=== PATIENT | male | born 1980 | race African-American/Black ===

== ENCOUNTER 2017-09-08 10:23 | Emergency (ER) | payer MEDICARE, MEDICAID ==
[2017-09-08] MEDS ORDERED: MORPHINE SULFATE 10 MG/ML INJ IV ONE (13:16)
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
[2017-09-08 13:38] LABS: ABSOLUTE EOSINOPHILS # (AUTO) 0.9 10^3/uL (0.0-0.6); ABSOLUTE MONOCYTES (AUTO) 0.4 10^3/uL (0.1-1.4); ABSOLUTE NEUT (AUTO) 3.8 10^3/uL (1.7-8.2); BASOPHILS % (AUTO) 0.6 % (0-2); HEMATOCRIT 37.9 % (37.9-51.0); HEMOGLOBIN 12.4 g/dL (13.5-17.0); LYMPHOCYTES % (AUTO) 16.1 % (13-45); MEAN CORPUSCULAR HEMOGLOBIN 26.9 pg (27.0-33.4); MEAN CORPUSCULAR HGB CONC 32.6 g/dL (32.0-36.0); MEAN CORPUSCULAR VOLUME 83 fl (80-97); MONOCYTES % (AUTO) 6.9 % (3-13); PLATELET COUNT 358 10^3/uL (150-450); RED BLOOD COUNT 4.59 10^6/uL (4.35-5.55); RED CELL DISTRIBUTION WIDTH 14.3 % (11.5-14.0); SEGMENTED NEUTROPHILS % (AUTO) 61.4 % (42-78); TOTAL CELLS COUNTED % (AUTO) 100 %; WHITE BLOOD COUNT 6.1 10^3/uL (4.0-10.5)
[2017-09-08] MEDS ORDERED: MORPHINE SULFATE 10 MG/ML INJ IM ONE (13:50)
--- NOTE | 2017-09-08 14:00 | RADIOLOGY REPORT (SQ) ---
EXAM DESCRIPTION: CHEST 2 VIEWS COMPLETED DATE/TIME: 09/08/2017 1:43 pm REASON FOR STUDY: cp/recent chest tube COMPARISON: Two-view chest 11/27/2012, 11/14/2012 EXAM PARAMETERS: NUMBER OF VIEWS: two views TECHNIQUE: Digital Frontal and Lateral radiographic views of the chest acquired. RADIATION DOSE: NA LIMITATIONS: none FINDINGS: LUNGS AND PLEURA: There is right lower lobe partial collapse with volume loss and consolid ation, elevation of the right hemidiaphragm. Right middle lobe, right upper lobe clear. Left lung clear. No pneumothorax MEDIASTINUM AND HILAR STRUCTURES: No masses or contour abnormalities. HEART AND VASCULAR STRUCTURES: Heart normal size. No evidence for failure. BONES: No acute findings. HARDWARE: None in the chest. OTHER: No other significant finding. IMPRESSION: Subtotal collapse of the right lower lobe. Pneumonia could not be excluded. Endobronch ial lesion to the left lower lobe could not be excluded. TECHNICAL DOCUMENTATION: JOB ID: [id number] [employer]- All Rights Reserved Reading location - IP/workstation name: [email or web address]
[2017-09-08] MEDS ORDERED: HYDROMORPHONE HCL INJ/PF 2 MG/ML AMPULE IM ONE (14:07)
[2017-09-08] MEDS ORDERED: IPRATROPIUM/ALBUTEROL 0.5-2.5 MG/3 ML AMPUL NEB ONE ×2 (15:16)
[2017-09-08] MEDS ORDERED: FENTANYL CITRATE INJ/PF 100 MCG/2 ML AMPUL IV ONE (15:16)
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
[2017-09-08 15:34] LABS: ANION GAP 10 (5-19); BLOOD UREA NITROGEN 20 mg/dL (7-20); CALCIUM 9.6 mg/dL (8.4-10.2); CARBON DIOXIDE 33 mmol/L (22-30); CHLORIDE 99 mmol/L (98-107); GLUCOSE 127 mg/dL (75-110); POTASSIUM 4.3 mmol/L (3.6-5.0); SODIUM 141.7 mmol/L (137-145)
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
[2017-09-08 17:27] VITALS: BP 135/82
== END 2017-09-08 17:27 | disposition home or self-care (01) ==
LOC: ER 10:23
DX: J98.11 Atelectasis (principal); R06.00 Dyspnea, unspecified; R06.02 Shortness of breath; Z86.14 Personal history of Methicillin resistant Staphylococcus aureus infection; Z98.890 Other specified postprocedural states
CPT/HCPCS: 94640; 99284; 96372; 96374; 36415; 85025; 80048; 71046; 71260; J3010; J1170; A9270; J7620

== ENCOUNTER 2017-10-30 22:53 | Emergency (ER) | payer MEDICARE, MEDICAID ==
[2017-10-30] MEDS ORDERED: METHYLPREDNISOLONE INJ 125 MG/2 ML SDV ONE (23:23)
[2017-10-30] MEDS ORDERED: MAGNESIUM SULFATE/D5W 2 GM/200 ML RTUPB IV ONE (23:23)
[2017-10-30] MEDS ORDERED: IPRATROPIUM/ALBUTEROL 0.5-2.5 MG/3 ML AMPUL NEB ONE ×2 (23:24→23:25)
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
[2017-10-30] MEDS ORDERED: THIAMINE HCL 100 MG, FOLIC ACID 1 MG in NORMAL SALINE 250 ML IV ONE (23:34)
[2017-10-30] MEDS ORDERED: LORAZEPAM INJ 2 MG/1 ML VIAL IV ONE (23:34)
--- NOTE | 2017-10-30 23:35 | RADIOLOGY REPORT (SQ) ---
EXAM DESCRIPTION: XR CHEST 1 VIEW CLINICAL HISTORY: 37 years Male, sob COMPARISON: CT,4.16.18. NUMBER OF VIEWS/TECHNIQUE: 1/AP FINDINGS: Increased lung volume, clear parenchyma, normal cardiac silhouette, and chronic fracture of the right mid clavicle and right upper posterolateral ribs. IMPRESSION: No acute cardiopulmonary findings.
[2017-10-30] MEDS ORDERED: ALBUTEROL SULFATE 0.083% NEB 2.5 MG/3 ML AMPUL NEB ONE (23:51)
[2017-10-31] MEDS ORDERED: HYDROMORPHONE HCL INJ/PF 2 MG/ML AMPULE IV ONE (00:17)
[2017-10-31] MEDS ORDERED: ALBUTEROL SULFATE 0.083% NEB 2.5 MG/3 ML AMPUL NEB ONE (00:38)
[2017-10-31] MEDS ORDERED: MAGNESIUM SULFATE/D5W 1 GM/100 ML RTUPB IV ONE (00:38)
[2017-10-31] MEDS ORDERED: OXYMETAZOLINE HCL 0.05% NASAL SPRAY 15 ML BOTTLE NASL ONE (01:28)
[2017-10-31] MEDS ORDERED: GUAIFENESIN/CODEINE PHOS 100-10 MG/ 5 ML UDC PO ONE (01:29)
[2017-10-31] MEDS ORDERED: DOXYCYCLINE HYCLATE 100 MG TABLET PO ONE (02:22)
[2017-10-31 03:25] VITALS: BP 156/82
[2017-10-31] MEDS ORDERED: IPRATROPIUM/ALBUTEROL 0.5-2.5 MG/3 ML AMPUL NEB ONE (03:34)
== END 2017-10-31 04:13 | disposition home or self-care (01) ==
LOC: ER 22:53
DX: J45.41 Moderate persistent asthma with (acute) exacerbation (principal); R05 Cough; R06.02 Shortness of breath
CPT/HCPCS: 94640 ×2; 99285; 96375; 96365; 71045; A9270 ×6; J2930; J1170; J3490; J3475 ×2; J7620

== ENCOUNTER 2018-01-14 01:02 | Emergency (ER) | payer MEDICARE, MEDICAID ==
[2018-01-14] MEDS ORDERED: IPRATROPIUM/ALBUTEROL 0.5-2.5 MG/3 ML AMPUL NEB ONE (01:07)
[2018-01-14] MEDS ORDERED: METHYLPREDNISOLONE INJ 125 MG/2 ML SDV IV ONE (01:07)
--- NOTE | 2018-01-14 01:08 | ER Document Report ---
ED Medical Screen (RME) - General Chief Complaint: Asthma Exacerbation Stated Complaint: ASTHMA Time Seen by Provider: 01/14/18 01:06 Mode of Arrival: Wheelchair Information source: Patient, Relative Notes: Patient is a 29-year-old male who presents with chief complaint of acute asthma exacerbation. Patient reports this is been going on several days, rescue inhalers have not helped. Patient speaking in short choppy sentences. Patient upgraded to JOHANN 2. Exam: Inspiratory and expiratory wheezing throughout, diminished air movement. I have greeted and performed a rapid initial assessment of this patient. A comprehensive ED assessment and evaluation of the patient, analysis of test results and completion of the medical decision making process will be conducted by additional ED providers. Dictation of this chart was performed using voice recognition software; therefore, there may be some unintended grammatical errors. TRAVEL OUTSIDE OF THE [place] IN LAST 30 DAYS: No - Related Data Allergies/Adverse Reactions: tramadol Allergy (Verified 09/08/17 13:08) Past Medical History Pulmonary Medical History: Reports: Hx Asthma Denies: Hx Bronchitis, Hx COPD, Hx Pneumonia, Hx Intubation, Hx Respiratory Failure, Hx Sleep Apnea, Hx Tuberculosis Neurological Medical History: Denies: Hx Cerebrovascular Accident, Hx Migraine, Hx Seizures Endocrine Medical History: Denies: Hx Diabetes Mellitus Type 1, Hx Diabetes Mellitus Type 2, Hx Graves' Disease, Hx Hyperthyroidism, Hx Hypothyroidism Renal/ Medical History: Denies: Hx Peritoneal Dialysis Psychiatric Medical History: Reports: Hx Bipolar Disorder Infectious Medical History: Reports: Hx MRSA Past Surgical History: Reports: Hx Abdominal Surgery - umbilical hernia repair, Hx Orthopedic Surgery - R clavical; tibia - Immunizations Hx Diphtheria, Pertussis, Tetanus Vaccination: Yes History of Influenza Vaccine for 02/2017 - 07/2017 Season: No
[2018-01-14] MEDS ORDERED: MAGNESIUM SULFATE/D5W 1 GM/100 ML RTUPB IV SCH (01:15)
[2018-01-14] MEDS: MAGNESIUM SULFATE/D5W 1 GM/100 ML RTUPB IV SCH ×2 (01:16→02:15)
--- NOTE | 2018-01-14 01:17 | ER Document Report ---
ED General - General Chief Complaint: Asthma Exacerbation Stated Complaint: ASTHMA Time Seen by Provider: 01/14/18 01:06 Mode of Arrival: Wheelchair Notes: Patient is a 37-year-old male who presents with complaint of asthma attack. He has a history of severe asthma. Has been using inhalers at home today but they have not been helping. He has been intubated a few times in the past. He is a former smoker but quit several years ago. No fevers. He says he does have some pain in the right side of his lung with breathing. No history of PE or DVT. No other complaints at this time. No other medical problems. TRAVEL OUTSIDE OF THE [place] IN LAST 30 DAYS: No - Related Data Allergies/Adverse Reactions: tramadol Allergy (Verified 09/08/17 13:08) Past Medical History - General Information source: Patient, Relative - Social History Smoking Status: Former Smoker Frequency of alcohol use: None Drug Abuse: None Family History: Hypertension, None, Reviewed & Not Pertinent Pulmonary Medical History: Reports: Hx Asthma Denies: Hx Bronchitis, Hx COPD, Hx Pneumonia, Hx Intubation, Hx Respiratory Failure, Hx Sleep Apnea, Hx Tuberculosis Neurological Medical History: Denies: Hx Cerebrovascular Accident, Hx Migraine, Hx Seizures Endocrine Medical History: Denies: Hx Diabetes Mellitus Type 1, Hx Diabetes Mellitus Type 2, Hx Graves' Disease, Hx Hyperthyroidism, Hx Hypothyroidism Renal/ Medical History: Denies: Hx Peritoneal Dialysis Psychiatric Medical History: Reports: Hx Bipolar Disorder Infectious Medical History: Reports: Hx MRSA Past Surgical History: Reports: Hx Abdominal Surgery - umbilical hernia repair, Hx Orthopedic Surgery - R clavical; tibia - Immunizations Hx Diphtheria, Pertussis, Tetanus Vaccination: Yes Hx Pneumococcal Vaccination: 02/23/11 Review of Systems - Review of Systems Notes: My Normal Review Basic REVIEW OF SYSTEMS: CONSTITUTIONAL : Denies fever, chills, or sweats. Denies recent illness. EENT: Denies eye, ear, throat, or mouth pain or symptoms. Denies nasal or sinus congestion. CARDIOVASCULAR: Denies chest pain. RESPIRATORY: Difficulty to breathing. GASTROINTESTINAL: Denies abdominal pain. Denies nausea, vomiting, or diarrhea. GENITOURINARY: Denies difficulty urinating, painful urination, burning, frequency, or blood in urine. SKIN: Denies rash or skin lesions. NEUROLOGICAL: Denies altered mental status or loss of consciousness. Denies headache. Denies weakness or paralysis or loss of use of either side. Denies problems with gait or speech. Denies sensory or motor loss. ALL OTHER SYSTEMS REVIEWED AND NEGATIVE. Physical Exam - Vital signs Vitals: Temp Pulse Resp BP Pulse Ox 98.1 F 88 12 139/88 H 93 01/14/18 01:06 01/14/18 01:06 01/14/18 01:06 01/14/18 01:06 01/14/18 01:06 - Notes Notes: General Appearance: Well nourished, alert, cooperative, moderate acute distress , no obvious discomfort. Vitals: reviewed, See vital signs table. Head: no swelling or tenderness to the head Eyes: PERRL, EOMI, Conjuctiva clear Mouth: No decreasd moisture Throat: No tonsillar inflammation, No airway obstruction, No lymphadenopathy Neck: Supple, no neck tenderness, No thyromegaly Lungs:Diffuse wheezing with poor to fair air movement. Some accessory muscle use. Speaks in 2 word sentences. Heart: Normal rate, Regular rythm, No murmur, no rub Abdomen: Normal BS, soft, No rigidity, No abdominal tenderness, No guarding, no rebound, Extremities: strength 5/5 in all extremities, good pulses in all extremities, no swelling or tenderness in the extremities, no edema. Skin: warm, dry, appropriate color, no rash Neuro: speech clear, oriented x 3, normal affect, responds appropriately to questions. Course - Re-evaluation Re-evalutation: 01/14/18 02:00 On reassessment patient's work of breathing is much improved however his lung padgett are still very tight wheezing. I will give him more breathing treatments and then reassess. 01/14/18 02:32 Patient is now moving air much better. He still has a prolonged expiratory wheeze; however, his air movement is much improved. We will continue to monitor the patient to make sure he fully improves. 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 I offered to write him a work note. I informed him that for him to stay Franny bit longer make sure his lung padgett clear. I informed him that his chance believes now that he could go home and his breathing to get worse and he could quickly crash being that he has just severe history of asthma. Patient shows understanding of this but says he feels very well and request to be discharged home. He is currently speaking full sentences. His lung padgett to continue to clear. He has good air movement. He still has some wheezing. His oxygen saturation is 90 -93%. Patient said this is actually his baseline. I informed him that that does not really make sense that he would have a baseline oxygen saturation of 90 -93%; however, patient is adamant that this is his baseline oxygenation. Patient shows understanding that if he does go home he could potentially have worsening difficulty breathing and could quickly crash and require intubation or ventilator. Patient is aware of this but still request to be discharged home. Patient shows capacity to make his own decisions. Patient will be discharged as he requests. Dictation of this chart was performed using voice recognition software; therefore, there may be some unintended grammatical errors. - Vital Signs Vital signs: Temp Pulse Resp BP Pulse Ox 98.1 F 88 12 152/84 H 94 01/14/18 01:06 01/14/18 01:06 01/14/18 03:01 01/14/18 03:01 01/14/18 03:01 - Laboratory Result Diagrams: 01/14/18 01:18 01/14/18 01:18 Laboratory results interpreted by me: 01/14/18 01/14/18 01:18 01:18 Hgb 12.2 L Hct 37.5 L MCH 26.4 L RDW 15.3 H Eosinophils % 19.7 H Absolute Eosinophils 1.3 H Sodium 145.8 H Chloride 108 H Glucose 111 H Discharge - Discharge Clinical Impression: Asthma exacerbation Qualifiers: Asthma severity: unspecified severity Asthma persistence: intermittent Qualified Code(s): J45.21 - Mild intermittent asthma with (acute) exacerbation Condition: Stable Disposition: HOME, SELF-CARE Additional Instructions: ASTHMA: You have been diagnosed as having asthma. This is a condition where there is episodic tightness in the bronchial tubes. Allergies, infections, and polluted or cold air may be contributing factors. Emergency treatment of a severe asthma attack may include adrenaline shots , or bronchodilator aerosol. You may feel lightheaded, have a decreased exercise tolerance and a rapid pulse for an hour or two. Rest and get plenty of fluids. Home treatment of asthma requires bronchodilator drugs. These can be administered by injection, inhalation, or by mouth. Antibiotics and corticosteroids may be required for some patients. You should avoid chemical fumes, dusts, pollens, and exercising in very cold or dry air. If you smoke, stop!! If you develop a fever, increased wheezing, chest pain, or severe shortness of breath, you should contact the doctor immediately. STEROID MEDICATION: You have been given an injection of or oral medicine of the cortisone/ steroid class. This medication is used to control inflammation or allergy. Joseph t is usually only given for a short period of time, until the acute process subsides. There are usually no side effects from short-term use of cortisone-like medications. Some persons feel an increased sense of well-being and are not sleepy at bedtime. Long-term use of cortisone medications is best avoided, unless required for a severe condition. If your condition does not remit, or relapses after the course of corticosteroid medication, you should consult your physician. INHALED BRONCHODILATORS: You have received treatment(s) of and/or prescription for an inhaled bronchodilator -- a medication which stimulates the airways in the lung to dilate. This improves the flow of air in asthma, bronchitis, and emphysema. These medicines have some similarity to adrenaline, and can cause similar side effects: shakiness, racing heart, and a sense of nervousness. These side effects decrease with time. Contact your doctor if these side effects are severe. Do not over-use the medicine. Too-frequent use of the inhaler may make it ineffective. Call your doctor if the inhaler is not controlling your symptoms at the prescribed doses. FOLLOW-UP CARE: If you have been referred to a physician for follow-up care, call the physician s office for an appointment as you were instructed or within the next two days. If you experience worsening or a significant change in your symptoms, notify the physician immediately or return to the Emergency Department at any time for re-evaluation. Please return to the ER immediately if you develop fevers, difficulty breathing , wheezing not responding to your inhaler, or if you feel unwell. Do not take the Motrin if you are having an asthma exacerbation. As discussed with you, we recommend staying a little bit longer to make sure you lungs do clear out well before leaving. We understand that you have to work in the morning and that you do not want to stay. We respect your decision to want to leave but strongly encourage you to return to the ER anytime if you have any worsening breathing whatsoever as we want what is best for you and we want you to do well. Prescriptions: Ibuprofen [Motrin 400 mg Tablet] 400 mg PO Q6 PRN #20 tablet PRN Reason: Pain Scale Of 2 Ipratropium/Albuterol Sulfate [Duoneb 3 ml Ampul] 3 ml NEB [id number] PRN #30 vial.neb PRN Reason: Ipratropium/Albuterol Sulfate [Combivent Inhaler] 1 puff IH BID #1 aer.w.[email or web address] Prednisone [Deltasone 20 mg Tablet] 3 tab PO DAILY 4 Days tablet
[2018-01-14 01:31] LABS: ABSOLUTE BASOPHILS # (AUTO) 0.1 10^3/uL (0.0-0.2); ABSOLUTE EOSINOPHILS # (AUTO) 1.3 10^3/uL (0.0-0.6); ABSOLUTE LYMPHOCYTES (AUTO) 1.5 10^3/uL (0.5-4.7); ABSOLUTE MONOCYTES (AUTO) 0.5 10^3/uL (0.1-1.4); ABSOLUTE NEUT (AUTO) 3.2 10^3/uL (1.7-8.2); BASOPHILS % (AUTO) 1.1 % (0-2); EOSINOPHILS % (AUTO) 19.7 % (0-6); HEMATOCRIT 37.5 % (37.9-51.0); HEMOGLOBIN 12.2 g/dL (13.5-17.0); LYMPHOCYTES % (AUTO) 23.3 % (13-45); MEAN CORPUSCULAR HEMOGLOBIN 26.4 pg (27.0-33.4); MEAN CORPUSCULAR HGB CONC 32.6 g/dL (32.0-36.0); MEAN CORPUSCULAR VOLUME 81 fl (80-97); MONOCYTES % (AUTO) 7.2 % (3-13); PLATELET COUNT 286 10^3/uL (150-450); RED BLOOD COUNT 4.62 10^6/uL (4.35-5.55); RED CELL DISTRIBUTION WIDTH 15.3 % (11.5-14.0); SEGMENTED NEUTROPHILS % (AUTO) 48.7 % (42-78); TOTAL CELLS COUNTED % (AUTO) 100 %; WHITE BLOOD COUNT 6.6 10^3/uL (4.0-10.5)
[2018-01-14 01:40] LABS: ANION GAP 10 (5-19); BLOOD UREA NITROGEN 16 mg/dL (7-20); CARBON DIOXIDE 28 mmol/L (22-30); CHLORIDE 108 mmol/L (98-107); GLUCOSE 111 mg/dL (75-110); POTASSIUM 3.8 mmol/L (3.6-5.0); SODIUM 145.8 mmol/L (137-145)
--- NOTE | 2018-01-14 01:48 | RADIOLOGY REPORT (SQ) ---
EXAM DESCRIPTION: XR CHEST 1 VIEW COMPLETED DATE/TME: 01/14/2018 01:14 CLINICAL HISTORY: dyspnea COMPARISON: 10/30/2017 FINDINGS: Single frontal view of the chest. The cardiomediastinal silhouette has normal size and contour. No consolidation, pneumothorax, or pleural effusion. No displaced rib fractures identified. Leads overlie the chest. Upper abdominal soft tissues are unremarkable. IMPRESSION: 1. No acute pulmonary process identified.
[2018-01-14] MEDS ORDERED: ALBUTEROL SULFATE 0.083% NEB 2.5 MG/3 ML AMPUL NEB ONE (01:59)
[2018-01-14] MEDS ORDERED: ALBUTEROL SULFATE HFA (90 MCG/PUFF) 8 GM MDI (1 MDI/ER DISP) IH ONE (03:05)
[2018-01-14 03:30] VITALS: BP 152/84
== END 2018-01-14 03:30 | disposition home or self-care (01) ==
LOC: ER 01:02
DX: J45.21 Mild intermittent asthma with (acute) exacerbation (principal); Z87.891 Personal history of nicotine dependence
CPT/HCPCS: 94640 ×2; 99285; 96375; 96365; 96366; 36415; 85025; 80048; 71045; J2930; J3475; A9270 ×2; J7620

== ENCOUNTER 2018-03-09 20:27 | Inpatient (IN) | payer MEDICARE, MEDICAID ==
[~2018-03-09 20:27] MED LIST: SUCCINYLCHOLINE CHLORIDE INJ 200 MG/10 ML VIAL ONE
[2018-03-09] MEDS ORDERED: METHYLPREDNISOLONE INJ 125 MG/2 ML SDV IV ONE (20:31)
[2018-03-09] MEDS ORDERED: IPRATROPIUM/ALBUTEROL 0.5-2.5 MG/3 ML AMPUL NEB ONE (20:31)
[2018-03-09] MEDS ORDERED: IPRATROPIUM BROMIDE 0.02% NEB 0.5 MG/2.5 ML AMPUL NEB ONE (20:32)
[2018-03-09] MEDS ORDERED: ALBUTEROL SULFATE 0.083% NEB 2.5 MG/3 ML AMPUL NEB ONE (20:32)
[2018-03-09] MEDS ORDERED: METHYLPREDNISOLONE INJ 125 MG/2 ML SDV ONE ×2 (20:33→23:58)
[2018-03-09] MEDS ORDERED: MAGNESIUM SULFATE/D5W 2 GM/200 ML RTUPB IV ONE (20:33)
[2018-03-09] MEDS ORDERED: RACEPINEPHRINE HCL 2.25% NEB 0.5 ML AMPUL NEB ONE ×2 (20:39→20:40)
[2018-03-09] MEDS ORDERED: NORMAL SALINE 1000 ML 1,000 ML IV ONE (20:42)
--- NOTE | 2018-03-09 20:43 | ER Document Report ---
ED Respiratory Problem - General Mode of Arrival: Ambulatory Information source: Patient TRAVEL OUTSIDE OF THE [place] IN LAST 30 DAYS: No <DERIC OROURKE - Last Filed: 03/09/18 20:49> <VICENTE DOCKERY - Last Filed: 03/09/18 22:24> <SOFÍAARRON Martinez - Last Filed: 03/09/18 22:54> - General Chief Complaint: Asthma Exacerbation Stated Complaint: SHORTNESS OF BREATH Time Seen by Provider: 03/09/18 20:36 Notes: Patient is a 38-year-old male with asthma presents to the emergency department complaining of difficulty breathing onset 3 days ago worsening tonight. Patient states that he has taken approximately 60 mg of Prednisone today in attempt to help his shortness of breath but it has not worked. He also complains of a small fever and chest tightness. Patient takes DuoNebs, Advair, Albuterol, Combivent. (DERIC OROURKE) - Related Data Allergies/Adverse Reactions: tramadol Allergy (Verified 09/08/17 13:08) Past Medical History - General Information source: Patient - Social History Smoking Status: Never Smoker Cigarette use (# per day): No Chew tobacco use (# tins/day): No Family History: Hypertension, None, Reviewed & Not Pertinent Pulmonary Medical History: Reports: Hx Asthma Musculoskeletal Medical History: Reports Other - Rib fracture of 3-7. Clavicle fracture. Psychiatric Medical History: Reports: Hx Bipolar Disorder Infectious Medical History: Reports: Hx MRSA Past Surgical History: Reports: Hx Abdominal Surgery - umbilical hernia repair, Hx Orthopedic Surgery - R clavical; tibia - Immunizations Hx Diphtheria, Pertussis, Tetanus Vaccination: Yes Hx Pneumococcal Vaccination: 02/23/11 <DERIC OROURKE - Last Filed: 03/09/18 20:49> Review of Systems - Review of Systems Constitutional: No symptoms reported EENT: No symptoms reported Cardiovascular: See HPI, Chest pain - tightness Respiratory: See HPI, Short of breath Gastrointestinal: No symptoms reported Genitourinary: No symptoms reported Male Genitourinary: No symptoms reported Musculoskeletal: No symptoms reported Skin: No symptoms reported Hematologic/Lymphatic: No symptoms reported Neurological/Psychological: No symptoms reported -: Yes All other systems reviewed and negative <DERIC OROURKE - Last Filed: 03/09/18 20:49> Physical Exam - General General appearance: Alert, Other - Appears short of breath In distress: Moderate - HEENT Head: Normocephalic, Atraumatic Eyes: Normal Conjunctiva: Normal Extraocular movements intact: Yes Pupils: PERRL Mucous membranes: Normal Neck: Normal - Respiratory Respiratory status: Respiratory distress, Tachypnea Breath sounds: Wheezing - Diffuse inspiratory and expiratory wheezes - Cardiovascular Rhythm: Regular Heart sounds: Normal auscultation Murmur: No Friction rub: No Gallop: None auscultated - Abdominal Inspection: Normal - Back Back: Normal - Extremities General upper extremity: Normal ROM General lower extremity: Normal ROM - Neurological Neuro grossly intact: Yes Cognition: Normal Orientation: AAOx4 [place] Coma Scale Eye Opening: Spontaneous [place] Coma Scale Verbal: Oriented [place] Coma Scale Motor: Obeys Commands [place] Coma Scale Total: 15 Speech: Normal - Psychological Associated symptoms: Anxious - Skin Skin Temperature: Warm Skin Moisture: Dry Skin Color: Normal <DERIC OROURKE - Last Filed: 03/09/18 20:49> - Vital signs Vitals: Resp Pulse Ox 22 H 96 03/09/18 20:50 03/09/18 20:50 Course - Laboratory Result Diagrams: 03/09/18 20:42 03/09/18 20:42 <DERIC OROURKE - Last Filed: 03/09/18 20:49> - Laboratory Result Diagrams: 03/09/18 20:42 03/09/18 20:42 - Diagnostic Test Radiology reviewed: Image reviewed, Reports reviewed - Initial chest x-ray did not show any acute abnormality. The post intubation chest x-ray showed good tube position with good aeration of both lungs. - EKG Interpretation by Dc EKG shows normal: Sinus rhythm, [place], QRS Complexes, ST-T Waves. abnormal: Intervals - Borderline prolonged QT interval Rate: Tachycardia - 106 P Waves: LAE - Consults Dr. Minaya Time consulted: 22:00 Consulted provider: will come to ER <VICENTE DOCKERY - Last Filed: 03/09/18 22:24> - Laboratory Result Diagrams: 03/09/18 20:42 03/09/18 20:42 <ARRON ANDRADE - Last Filed: 03/09/18 22:54> - Re-evaluation Re-evalutation: 03/09/18 22:05 The patient was initially quite tachypneic with very tight inspiratory wheezes and not very good air movement. He was given multiple breathing treatments of DuoNeb, 1 racemic epinephrine, albuterol, and did receive Solu-Medrol IV and 2 g of magnesium IV. He continued to deteriorate, became quite diaphoretic and air hungry. At that point decision to intubate was made. He was given 120 mg of ketamine in preparation for intubation due to his combativeness. Initial management was delayed because he pulled his IV out and it had to be reinserted. Dr. Andrade came in the room to assist in management of the patient. He did offer to intubate patient. He did intubate the patient on first try without complications. See his note for details. 03/09/18 22:18 The patient was put on propofol drip. He was given fentanyl 25 mg as needed agitation. Despite this he tried to come up off the table bucking the ventilator enough to be concerned about extubation. He was given vecuronium 10 mg IV to help protect him and the endotracheal tube placement. (VICENTE DOCKERY) - Vital Signs Vital signs: Temp Pulse Resp BP Pulse Ox 20 111/63 97 03/09/18 22:46 03/09/18 22:46 03/09/18 22:46 - Laboratory Laboratory results interpreted by me: 03/09/18 20:42 Hgb 12.1 L Hct 36.5 L MCH 26.8 L RDW 15.6 H Eosinophils % 11.1 H Absolute Eosinophils 0.9 H Procedures - Intubation Orotracheal Time of Intubation: 21:30 Airway evaluation: Normal anatomy Mallampati Classification: Class 2 Medications: Ketamine Intubation method: Orotracheal Blade type: [place] Blade size: 4 Equipment used: Glidescope ETT size: 7.5 ETT secured at: Lips ETT secured at (cm): 22 Breath Sounds after Intubation: Equal End tidal CO2 confirmed: Yes Ventilator settings: SIMV Tidal volume: 450 FiO2: 100 Respirations: 18 PEEP: 0 Post Intubation Xray: Yes Intubation Complications: No complications <ARRON ANDRADE - Last Filed: 03/09/18 22:54> Critical Care Note - Critical Care Note Total time excluding time spent on procedures (mins): 50 <VICENTE DOCKERY - Last Filed: 03/09/18 22:24> Discharge <DERIC OROURKE - Last Filed: 03/09/18 20:49> - Discharge Admitting Provider: Hospitalist Unit Admitted: ICU <VICENTE DOCKERY - Last Filed: 03/09/18 22:24> <SOFÍAARRON Martinez - Last Filed: 03/09/18 22:54> - Discharge Clinical Impression: Acute severe exacerbation of asthma Acute respiratory failure Qualifiers: Respiratory failure complication: hypoxia Qualified Code(s): J96.01 - Acute respiratory failure with hypoxia Condition: Critical Disposition: ADMITTED INPATIENT Scribe Attestation: 03/09/18 21:08 I personally performed the services described in the documentation, reviewed and edited the documentation which was dictated to the scribe in my presence, and it accurately records my words and actions. (VICENTE DOCKERY) Scribe Documentation - Scribe Written by Harmonye:: Noa Hassan, 03/09/2018 20:48 acting as scribe for :: Susannah <DERIC OROURKE - Last Filed: 03/09/18 20:49>
[2018-03-09] MEDS: ALBUTEROL SULFATE 0.083% NEB 2.5 MG/3 ML AMPUL NEB SCH ×2 (20:44→20:54)
[2018-03-09] MEDS ORDERED: LORAZEPAM INJ 2 MG/1 ML VIAL IV ONE (20:45)
[2018-03-09 20:51] LABS: ABSOLUTE BASOPHILS # (AUTO) 0.1 10^3/uL (0.0-0.2); ABSOLUTE EOSINOPHILS # (AUTO) 0.9 10^3/uL (0.0-0.6); ABSOLUTE LYMPHOCYTES (AUTO) 1.5 10^3/uL (0.5-4.7); ABSOLUTE MONOCYTES (AUTO) 0.6 10^3/uL (0.1-1.4); ABSOLUTE NEUT (AUTO) 4.7 10^3/uL (1.7-8.2); BASOPHILS % (AUTO) 1.1 % (0-2); EOSINOPHILS % (AUTO) 11.1 % (0-6); HEMATOCRIT 36.5 % (37.9-51.0); HEMOGLOBIN 12.1 g/dL (13.5-17.0); LYMPHOCYTES % (AUTO) 19.4 % (13-45); MEAN CORPUSCULAR HEMOGLOBIN 26.8 pg (27.0-33.4); MEAN CORPUSCULAR HGB CONC 33.1 g/dL (32.0-36.0); MEAN CORPUSCULAR VOLUME 81 fl (80-97); MONOCYTES % (AUTO) 7.4 % (3-13); PLATELET COUNT 290 10^3/uL (150-450); RED BLOOD COUNT 4.51 10^6/uL (4.35-5.55); RED CELL DISTRIBUTION WIDTH 15.6 % (11.5-14.0); TOTAL CELLS COUNTED % (AUTO) 100 %; WHITE BLOOD COUNT 7.7 10^3/uL (4.0-10.5)
[2018-03-09] MEDS ORDERED: ETOMIDATE INJ/PF 20 MG/10 ML SDV IV ONE (21:25)
[2018-03-09] MEDS ORDERED: KETAMINE HCL INJ 500 MG/10 ML VIAL ONE (21:25)
--- NOTE | 2018-03-09 21:27 | RADIOLOGY REPORT (SQ) ---
EXAM DESCRIPTION: CLINICAL HISTORY: 38 years Male difficulty breathing COMPARISON: 01/14/2018 FINDINGS: The cardiomediastinal silhouette appears unremarkable. No consolidating infiltrates or pleural effusions. No pneumothorax. Lungs appear hyperinflated IMPRESSION: No acute abnormality is identified.
[2018-03-09] MEDS ORDERED: PROPOFOL 1,000 MG/100 ML INFUS..BTL IV ONE (21:36)
[2018-03-09] MEDS ORDERED: ACETAMINOPHEN 325 MG TABLET PO PRN (22:01)
[2018-03-09] MEDS ORDERED: IPRATROPIUM/ALBUTEROL 0.5-2.5 MG/3 ML AMPUL NEB PRN (22:02)
[2018-03-09] MEDS ORDERED: VECURONIUM BROMIDE INJ 10 MG VIAL IV ONE ×2 (22:17→22:18)
[2018-03-09] MEDS: FENTANYL CITRATE INJ/PF 100 MCG/2 ML AMPUL IV PRN (22:28)
--- NOTE | 2018-03-09 22:42 | RADIOLOGY REPORT (SQ) ---
EXAM DESCRIPTION: Chest x-ray single view Time and date completed: 03/09/2018 9:56 PM CLINICAL HISTORY: 38 years Male Post intubation COMPARISON: 03/09/2018 9:02 PM FINDINGS: Lungs are hyperinflated. No pneumothorax or acute infiltrate. Endotracheal tube in place above the level of the frank by 7 cm. IMPRESSION: Endotracheal tube in place above the level the frank
[2018-03-09 22:53] LABS: ALANINE AMINOTRANSFERASE 22 U/L (21-72); ALBUMIN 3.9 g/dL (3.5-5.0); ALKALINE PHOSPHATASE 70 U/L (38-126); ANION GAP 8 (5-19); ASPARTATE AMINO TRANSFERASE 25 U/L (17-59); BILIRUBIN,DIRECT 0.2 mg/dL (0.0-0.4); BILIRUBIN,TOTAL 0.3 mg/dL (0.2-1.3); BLOOD UREA NITROGEN 12 mg/dL (7-20); CALCIUM 8.8 mg/dL (8.4-10.2); CARBON DIOXIDE 28 mmol/L (22-30); CHLORIDE 106 mmol/L (98-107); GLUCOSE 155 mg/dL (75-110); POTASSIUM 4.1 mmol/L (3.6-5.0); SODIUM 141.5 mmol/L (137-145); TOTAL PROTEIN 6.6 g/dL (6.3-8.2)
[2018-03-09 23:22] LABS: APPEARANCE,URINE SLIGHTLY-CLOUDY; BILIRUBIN,URINE NEGATIVE (NEGATIVE); COLOR,URINE YELLOW; GLUCOSE, URINE NEGATIVE (NEGATIVE); KETONES,URINE NEGATIVE (NEGATIVE); LEUKOCYTE ESTERASE,URINE NEGATIVE (NEGATIVE); NITRITE,URINE NEGATIVE (NEGATIVE); PROTEIN,URINE 30 mg/dL (NEGATIVE); URINE SPECIFIC GRAVITY 1.014; UROBILINOGEN,URINE NEGATIVE mg/dL (<2.0)
[2018-03-09] MEDS: IPRATROPIUM/ALBUTEROL 0.5-2.5 MG/3 ML AMPUL NEB SCH (23:41)
[2018-03-09 23:42] LABS: URINE AMPHETAMINES SCREEN NEGATIVE; URINE BARBITURATES SCREEN NEGATIVE; URINE BENZODIAZEPINES SCREEN NEGATIVE; URINE METHADONE SCREEN NEGATIVE; URINE PHENCYCLIDINE SCREEN NEGATIVE
[2018-03-09] MEDS ORDERED: LEVOFLOXACIN 750 MG/D5W RTU 750 MG/150 ML RTUPB IV ONE (23:45)
[2018-03-09 23:48] LABS: URINE COCAINE SCREEN UNCONFIRMED POSITIVE; URINE MARIJUANA (THC) SCREEN UNCONFIRMED POSITIVE
[2018-03-09] MEDS: PROPOFOL 1,000 MG/100 ML INFUS..BTL IV PRN (23:48)
[2018-03-09] MEDS ORDERED: HEPARIN SOD (PORCINE) 5,000 UNIT/ML 1 ML SYRINGE ONE (23:58)
[2018-03-10 00:05] LABS: ARTERIAL BLOOD BASE EXCESS 0.1 mmol/L; ARTERIAL BLOOD H2CO3 2.15 mmol/L (1.05-1.35); ARTERIAL BLOOD HCO3 29.2 mmol/L (20-24); ARTERIAL BLOOD O2 SATURATION 99.7 % (94-98); ARTERIAL BLOOD PH 7.23 (7.35-7.45); ARTERIAL BLOOD PO2 349.7 mmHg (80-100)
[2018-03-10 00:07] LABS: ARTERIAL BLOOD FIO2 70%
[2018-03-10 00:08] LABS: ARTERIAL BLOOD TOTAL CO2 31.4 mmol/L (23-27)
[2018-03-10 00:09] LABS: ARTERIAL BLOOD PCO2 71.4 mmHg (35-45)
[2018-03-10] MEDS: PROPOFOL 1,000 MG/100 ML INFUS..BTL IV PRN ×7 (03:23→22:26)
[2018-03-10] MEDS: IPRATROPIUM/ALBUTEROL 0.5-2.5 MG/3 ML AMPUL NEB SCH ×3 (04:16→11:21)
[2018-03-10 04:26] LABS: HEMATOCRIT 35.8 % (37.9-51.0); HEMOGLOBIN 11.8 g/dL (13.5-17.0); MEAN CORPUSCULAR HEMOGLOBIN 26.6 pg (27.0-33.4); MEAN CORPUSCULAR HGB CONC 32.9 g/dL (32.0-36.0); MEAN CORPUSCULAR VOLUME 81 fl (80-97); PLATELET COUNT 241 10^3/uL (150-450); RED BLOOD COUNT 4.43 10^6/uL (4.35-5.55); RED CELL DISTRIBUTION WIDTH 15.8 % (11.5-14.0); WHITE BLOOD COUNT 11.2 10^3/uL (4.0-10.5)
[2018-03-10 04:40] LABS: ALANINE AMINOTRANSFERASE 22 U/L (21-72); ALBUMIN 4.1 g/dL (3.5-5.0); ALKALINE PHOSPHATASE 63 U/L (38-126); ANION GAP 10 (5-19); ASPARTATE AMINO TRANSFERASE 24 U/L (17-59); BILIRUBIN,DIRECT 0.1 mg/dL (0.0-0.4); BILIRUBIN,TOTAL 0.4 mg/dL (0.2-1.3); BLOOD UREA NITROGEN 12 mg/dL (7-20); CALCIUM 9.4 mg/dL (8.4-10.2); CARBON DIOXIDE 27 mmol/L (22-30); CHLORIDE 106 mmol/L (98-107); GLUCOSE 148 mg/dL (75-110); POTASSIUM 4.7 mmol/L (3.6-5.0); SODIUM 143.1 mmol/L (137-145); TOTAL PROTEIN 6.8 g/dL (6.3-8.2)
[2018-03-10 05:10] LABS: ABSOLUTE LYMPHOCYTES# (MANUAL) 0.7 10^3/uL (0.5-4.7); ABSOLUTE NEUTROPHILS# (MANUAL) 10.5 10^3/uL (1.7-8.2); BASOPHILS % (MANUAL) 0 % (0-2); EOSINOPHILS % (MANUAL) 0 % (0-6); LYMPHOCYTES % (MANUAL) 6 % (13-45); MONOCYTES % (MANUAL) 0 % (3-13); SEGMENTED NEUTROPHILS % (MAN) 94 % (42-78); TOTAL CELLS COUNTED 100
[2018-03-10 05:14] LABS: ANISOCYTOSIS SLIGHT; OVALOCYTES 1+; POIKILOCYTOSIS 2+; TARGET CELLS SLIGHT; TOXIC GRANULATION SLIGHT; TOXIC VACUOLATION PRESENT
[2018-03-10 05:15] LABS: PLATELET COMMENT ADEQUATE; TEAR DROP CELLS SLIGHT
[2018-03-10] MEDS: HEPARIN SOD (PORCINE) 5,000 UNIT/ML 1 ML SYRINGE SUBCUT SCH ×3 (05:54→21:20)
[2018-03-10] MEDS ORDERED: METHYLPREDNISOLONE INJ 125 MG/2 ML SDV IV SCH (06:00)
[2018-03-10 06:05] LABS: ARTERIAL BLOOD BASE EXCESS -0.4 mmol/L; ARTERIAL BLOOD H2CO3 1.56 mmol/L (1.05-1.35); ARTERIAL BLOOD HCO3 26.2 mmol/L (20-24); ARTERIAL BLOOD O2 SATURATION 94.9 % (94-98); ARTERIAL BLOOD PCO2 51.7 mmHg (35-45); ARTERIAL BLOOD PH 7.32 (7.35-7.45); ARTERIAL BLOOD PO2 80.4 mmHg (80-100); ARTERIAL BLOOD TOTAL CO2 27.8 mmol/L (23-27)
[2018-03-10 06:12] LABS: CREATINE KINASE MB 3.56 ng/mL (<4.55)
[2018-03-10 06:13] LABS: ARTERIAL BLOOD FIO2 60%
[2018-03-10 06:17] LABS: TROPONIN I < 0.012 ng/mL
--- NOTE | 2018-03-10 07:41 | PDOC H&P ---
History of Present Illness Admission Date/PCP: 03/09/18 22:20 Patient complains of: Asthma exacerbation History of Present Illness: MARILIN HARRINGTON is a 38 year old male with a past medical history of asthma, bronchitis, tobacco and polysubstance abuse. Patient presents to the emergency room with shortness of breath over 3 days worsening despite 60 mg of prednisone. In the emergency room he is found to have acute respiratory decompensation and rapidly intubated started on Solu-Medrol, magnesium, albuterol by the emergency room provider. Is ABG reveals a PCO2 of 70. Past Medical History Pulmonary Medical History: Reports: Asthma, Bronchitis Denies: Chronic Obstructive Pulmonary Disease (COPD), Intubation, Pneumonia, Respiratory Failure, Sleep Apnea, Tuberculosis Neurological Medical History: Denies: Migraine, Seizures Endocrine Medical History: Denies: Diabetes Mellitus Type 1, Diabetes Mellitus Type 2, Hyperthyroidism, Hypothyroidism Musculoskeltal Medical History: Reports: Other - Rib fracture of 3-7. Clavicle fracture. Psychiatric Medical History: Reports: Bipolar Disorder, Substance Abuse Infectious Medical History: Reports: Methicillin-Resistant Staph Aureus Past Surgical History Past Surgical History: Reports: Orthopedic Surgery - R clavical; tibia Social History Information Source: [facility], [facility] Records Smoking Status: Unknown if Ever Smoked Frequency of Alcohol Use: Occasional Hx Recreational Drug Use: Yes Drugs: Cocaine, Marijuana Hx Prescription Drug Abuse: No - Advance Directive Resuscitation Status: Full Code Family History Family History: Hypertension, Other - Unobtainable Parental Family History Reviewed: Yes Children Family History Reviewed: Yes Sibling(s) Family History Reviewed.: Yes Medication/Allergy Home Medications: Albuterol Sulfate [Ventolin HFA] 1 puff IH Q4HP PRN 05/17/12 Metaxalone [Skelaxin 800 mg Tablet] 800 mg PO ASDIR PRN #20 tablet 05/17/12 Oxycodone HCl/Acetaminophen [Percocet 5-325 mg Tablet] 1 - 2 tab PO ASDIR PRN # 15 tablet 05/17/12 Prednisone [Deltasone 10 mg Tablet] 10 mg PO ASDIR #21 tablet 05/17/12 Cyclobenzaprine HCl [Flexeril] 5 mg PO TID #15 tablet 11/14/12 Prednisone [Deltasone 10 mg Tablet] 10 mg PO ASDIR PRN #21 tablet 11/14/12 Albuterol Sulfate [Ventolin HFA] 1 puff IH Q4HP PRN #17 gm 11/27/12 Ipratropium/Albuterol Sulfate [Combivent Inhaler] 1 puff IH QID #1 aer.w.adap Prednisone [Deltasone 10 mg Tablet] 10 mg PO ASDIR PRN #21 tablet 11/27/12 Albuterol Sulfate [Ventolin HFA MDI 18 GM] 2 puff IH Q4H PRN #1 mdi 12/13/12 Ipratropium [place] [Atrovent 0.02% Neb 0.5 mg/2.5 ml Ampul] 0.5 mg NEB BID PRN #10 vial.neb 12/13/12 Oxycodone HCl/Acetaminophen [Percocet 5-325 mg Tablet] 1 - 2 tab PO ASDIR PRN # 15 tablet 12/13/12 Prednisone [Deltasone 10 mg Tablet] 10 mg PO ASDIR PRN #15 tablet 12/13/12 Methocarbamol [Robaxin 500 Mg Tablet] 500 mg PO QID PRN #60 tablet 12/31/12 Tramadol HCl [Ultram 50 mg Tablet] 50 mg PO ASDIR PRN #20 tablet 12/31/12 Fentanyl [Duragesic 75 Mcg/Hr Transdermal Patch] 1 each TD Q3D #2 patch.[id number] Doxycycline Hyclate 100 mg PO BID #14 capsule 10/31/17 Hydrocodone/Acetaminophen [[place] 5-325 mg Tablet] 1 tab PO Q6H #15 tablet Hydroxyzine Pamoate [Vistaril 25 mg Capsule] 25 mg PO Q8H PRN #15 capsule Ibuprofen [Motrin 600 Mg Tablet] 600 mg PO TID #30 tablet 10/31/17 Prednisone [Deltasone 20 mg Tablet] 2 tab PO DAILY 5 Days #10 tablet 10/31/17 Albuterol Sulfate [Ventolin Hfa] 2 puff IH Q4HP PRN 11/22/17 Ibuprofen [Motrin 600 mg Tablet] 600 mg PO Q8HP PRN 11/22/17 Ipratropium/Albuterol Sulfate [Combivent Respimat 4 gm Mdi] 1 puff IH Q6 Albuterol Sulfate [Proair Respiclick] 90 mcg IH Q3HP PRN 30 Days #1 aer.pow.ba 11/23/17 Fluticasone/Salmeterol [Advair 250-50 Diskus 28 dose] 1 inh IH Q12H #1 inhaler 11/23/17 Ipratropium/Albuterol Sulfate [Duoneb 3 ml Ampul] 3 ml NEB RTQ4HP PRN 30 Days # 1 vial.neb 11/23/17 Ipratropium/Albuterol Sulfate [Duoneb 3 ml Ampul] 3 ml NEB RTQ4HP PRN 30 Days # 30 vial.neb 11/23/17 Omeprazole Magnesium [Prilosec Otc] 20 mg PO DAILY 7 Days #7 tablet. 11/23/17 Oxycodone HCl/Acetaminophen [Percocet 10-325 Mg Tablet] 1 each PO Q8HP PRN 3 Days #10 tablet 11/23/17 Prednisone 60 mg PO DAILY #26 tablet 11/23/17 Ibuprofen [Motrin 400 mg Tablet] 400 mg PO Q6 PRN #20 tablet 01/14/18 Ipratropium/Albuterol Sulfate [Combivent Inhaler] 1 puff IH BID #1 aer.w.adap Ipratropium/Albuterol Sulfate [Duoneb 3 ml Ampul] 3 ml NEB RTQ4HP PRN #30 vial.[facility] 01/14/18 Prednisone [Deltasone 20 mg Tablet] 3 tab PO DAILY 4 Days tablet 01/14/18 Allergies/Adverse Reactions: tramadol Allergy (Verified 09/08/17 13:08) Review of Systems ROS unobtainable: Due to mental status - Unobtainable Physical Exam Vital Signs: Temp Pulse Resp BP Pulse Ox 98.2 F 90 20 121/73 95 03/10/18 06:00 03/10/18 04:15 03/10/18 06:00 03/10/18 05:36 03/10/18 06:00 Intake & Output 03/08/18 03/09/18 03/10/18 11:59 11:59 11:59 Intake Total 1120 Output Total 1090 Balance 30 Weight 78 kg General appearance: PRESENT: severe distress, thin. ABSENT: cooperative, disheveled Head exam: PRESENT: atraumatic, normocephalic Eye exam: PRESENT: conjunctiva pink, EOMI, PERRLA. ABSENT: scleral icterus Ear exam: PRESENT: normal external ear exam Mouth exam: PRESENT: moist, tongue midline Neck exam: ABSENT: carotid bruit, JVD, lymphadenopathy, thyromegaly Respiratory exam: PRESENT: accessory muscle use, prolonged expiratory phas, retraction, tachypnea, wheezes. ABSENT: clear to auscultation jada, decreased breath sounds, stridor Cardiovascular exam: PRESENT: tachycardia. ABSENT: diastolic murmur, rubs, systolic murmur Pulses: PRESENT: normal dorsalis pedis pul Vascular exam: PRESENT: normal capillary refill GI/Abdominal exam: PRESENT: normal bowel sounds, soft. ABSENT: distended, guarding, mass, organolmegaly, rebound, tenderness Rectal exam: PRESENT: deferred Extremities exam: PRESENT: calf tenderness Neurological exam: PRESENT: other - Intubated and sedated Skin exam: PRESENT: dry, intact, warm. ABSENT: cyanosis, rash Results Laboratory Results: 03/10/18 04:12 03/10/18 04:12 03/09/18 03/09/18 03/10/18 22:55 23:45 04:12 WBC 11.2 H RBC 4.43 Hgb 11.8 L Hct 35.8 L MCV 81 MCH 26.6 L MCHC 32.9 RDW 15.8 H Plt Count 241 Seg Neutrophils % Not Reportable Lymphocytes % Not Reportable Monocytes % Not Reportable Eosinophils % Not Reportable Basophils % Not Reportable Absolute Neutrophils Not Reportable Absolute Lymphocytes Not Reportable Absolute Monocytes Not Reportable Absolute Eosinophils Not Reportable Absolute Basophils Not Reportable Carbonic Acid 2.15 H HCO3/H2CO3 Ratio 13:1 ABG pH 7.23 L ABG pCO2 71.4 H* ABG pO2 349.7 H ABG HCO3 29.2 H ABG O2 Saturation 99.7 H ABG Base Excess 0.1 FiO2 70% Sodium Potassium Chloride Carbon Dioxide Anion Gap BUN Creatinine Est GFR ( Amer) Est GFR (Non-Af Amer) Glucose Calcium Total Bilirubin AST ALT Alkaline Phosphatase Total Protein Albumin Urine Color YELLOW Urine Appearance SLIGHTLY-CLOUDY Urine pH 5.0 Ur Specific [place] 1.014 Urine Protein 30 H Urine Glucose (UA) NEGATIVE Urine Ketones NEGATIVE Urine Blood SMALL H Urine Nitrite NEGATIVE Ur Leukocyte Esterase NEGATIVE Urine WBC (Auto) 2 Urine RBC (Auto) 4 03/10/18 03/10/18 04:12 05:45 WBC RBC Hgb Hct MCV MCH MCHC RDW Plt Count Seg Neutrophils % Lymphocytes % Monocytes % Eosinophils % Basophils % Absolute Neutrophils Absolute Lymphocytes Absolute Monocytes Absolute Eosinophils Absolute Basophils Carbonic Acid 1.56 H HCO3/H2CO3 Ratio 16:1 ABG pH 7.32 L ABG pCO2 51.7 H ABG pO2 80.4 ABG HCO3 26.2 H ABG O2 Saturation 94.9 ABG Base Excess -0.4 FiO2 60% Sodium 143.1 Potassium 4.7 Chloride 106 Carbon Dioxide 27 Anion Gap 10 BUN 12 Creatinine 0.86 Est GFR ( Amer) > 60 Est GFR (Non-Af Amer) > 60 Glucose 148 H Calcium 9.4 Total Bilirubin 0.4 AST 24 ALT 22 Alkaline Phosphatase 63 Total Protein 6.8 Albumin 4.1 Urine Color Urine Appearance Urine pH Ur Specific [place] Urine Protein Urine Glucose (UA) Urine Ketones Urine Blood Urine Nitrite Ur Leukocyte Esterase Urine WBC (Auto) Urine RBC (Auto) 03/10/18 03/10/18 03/10/18 04:12 05:32 05:32 Creatine Kinase 304 H CK-MB (CK-2) 3.56 Troponin I < 0.012 NT-Pro-B Natriuret Pep 191 H Impressions: Chest X-Ray 03/09/18 21:34 IMPRESSION: Endotracheal tube in place above the level the frank Assessment & Plan - Diagnosis (1) Acute severe exacerbation of asthma Is this a current diagnosis for this admission?: Yes Plan: ICU admission, follow-up ABG for ventilator optimization, continue steroids, albuterol and supportive care (2) Acute respiratory failure Qualifiers: Respiratory failure complication: hypoxia Qualified Code(s): J96.01 - Acute respiratory failure with hypoxia Is this a current diagnosis for this admission?: Yes Plan: Secondary to #1, complicated by polysubstance abuse (3) Polysubstance abuse Is this a current diagnosis for this admission?: Yes Plan: Supportive care - Time Time Spent: 50 to 70 Minutes - Inpatient Certification Medical Necessity: Need Close Monitoring Due to Risk of Patient Decompensation
--- NOTE | 2018-03-10 07:57 | EKG REPORT ---
SEVERITY:- BORDERLINE ECG - SINUS TACHYCARDIA PROBABLE LEFT ATRIAL ABNORMALITY BORDERLINE PROLONGED QT INTERVAL : Confirmed by: Corona Sadler MD 10-Mar-2018 07:56:08
[2018-03-10] MEDS: MIDAZOLAM HCL 50 MG/100 ML RTUINJ IV PRN ×2 (10:04→20:51)
[2018-03-10] MEDS: BUDESONIDE NEB 0.5 MG/2 ML AMPUL NEB SCH ×2 (10:16→20:41)
[2018-03-10] MEDS: PANTOPRAZOLE SODIUM 40 MG VIAL IV SCH (10:24)
[2018-03-10 11:47] LABS: HEMATOCRIT 35.4 % (37.9-51.0); MEAN CORPUSCULAR HEMOGLOBIN 27.2 pg (27.0-33.4); MEAN CORPUSCULAR HGB CONC 33.8 g/dL (32.0-36.0); MEAN CORPUSCULAR VOLUME 81 fl (80-97); PLATELET COUNT 276 10^3/uL (150-450); RED CELL DISTRIBUTION WIDTH 15.8 % (11.5-14.0); WHITE BLOOD COUNT 10.9 10^3/uL (4.0-10.5)
[2018-03-10] MEDS: FENTANYL CITRATE INJ/PF 100 MCG/2 ML AMPUL IV PRN ×2 (11:51→20:51)
--- NOTE | 2018-03-10 11:57 | PDOC PROGRESS REPORT ---
Subjective Progress Note for:: 03/10/18 Subjective:: MARILIN ALBERTS is a 38 year old male who presented to the emergency room with a 3-day history of progressively worsening dyspnea despite taking 60 mg of prednisone that he had at home for use when he experiences an exacerbation of his asthma. Mr. Alberts has a past medical history of asthma, bronchitis, tobacco and polysubstance abuse. In the emergency room he was found to have acute respiratory decompensation and was rapidly intubated. He was subsequently started on Solu-Medrol, magnesium, albuterol by the emergency room provider. His ABG revealed a PCO2 of 70 and as he was maintained on the ventilator and transferred to the ICU for care by the hospitalist service. 03/10/18: Patient is unable to provide subjective input since he is sedated and on a ventilator. His examination reveals mild end expiratory wheezing and a minimally prolongated expiratory phase. He will be maintained on the ventilator for the rest the day at the direction of Dr. Goodson who is seeing the patient in consultation. Hopefully Mr. Alberst can be extubated tomorrow. Reason For Visit: ASTHMA EXACERBATION,ACUTE RESPIRATORY FAILURE, Physical Exam Vital Signs: Temp Pulse Resp BP Pulse Ox 99.1 F 120 H 19 142/86 H 95 03/10/18 10:00 03/10/18 11:21 03/10/18 11:21 03/10/18 09:36 03/10/18 11:21 Intake & Output 03/08/18 03/09/18 03/10/18 23:59 23:59 23:59 Intake Total 1000 120 Output Total 210 1230 Balance 790 -1110 Weight 78 kg 78 kg General appearance: PRESENT: well-developed, well-nourished, other - Endotracheally intubated and sedated for ventilation. Head exam: PRESENT: atraumatic, normocephalic Eye exam: ABSENT: conjunctival injection, scleral icterus Ear exam: PRESENT: normal external ear exam. ABSENT: drainage Mouth exam: PRESENT: dry mucosa, tongue midline, other - Endotracheal tube in good position Neck exam: ABSENT: thyromegaly, tracheal deviation Respiratory exam: PRESENT: prolonged expiratory phas - Mildly prolonged expiratory phase, symmetrical, wheezes - Mild end expiratory wheezes, other - Mechanical ventilation Cardiovascular exam: PRESENT: RRR. ABSENT: clicks, gallop, rubs Pulses: PRESENT: normal radial pulses, normal dorsalis pedis pul Vascular exam: PRESENT: normal capillary refill. ABSENT: pallor GI/Abdominal exam: PRESENT: normal bowel sounds, soft Rectal exam: PRESENT: deferred - [id number] Extremities exam: ABSENT: joint swelling, pedal edema Musculoskeletal exam: ABSENT: deformity, dislocation Neurological exam: PRESENT: other - Somnolent due to sedation for ventilation Psychiatric exam: PRESENT: other - Unable to assess due to sedation for ventilation Skin exam: ABSENT: jaundice, rash, urticaria Results Laboratory Results: 03/09/18 03/09/18 03/10/18 22:55 23:45 04:12 WBC 11.2 H RBC 4.43 Hgb 11.8 L Hct 35.8 L MCV 81 MCH 26.6 L MCHC 32.9 RDW 15.8 H Plt Count 241 Seg Neutrophils % Not Reportable Lymphocytes % Not Reportable Monocytes % Not Reportable Eosinophils % Not Reportable Basophils % Not Reportable Absolute Neutrophils Not Reportable Absolute Lymphocytes Not Reportable Absolute Monocytes Not Reportable Absolute Eosinophils Not Reportable Absolute Basophils Not Reportable Carbonic Acid 2.15 H HCO3/H2CO3 Ratio 13:1 ABG pH 7.23 L ABG pCO2 71.4 H* ABG pO2 349.7 H ABG HCO3 29.2 H ABG O2 Saturation 99.7 H ABG Base Excess 0.1 FiO2 70% Sodium Potassium Chloride Carbon Dioxide Anion Gap BUN Creatinine Est GFR ( Amer) Est GFR (Non-Af Amer) Glucose Calcium Total Bilirubin AST ALT Alkaline Phosphatase Total Protein Albumin Urine Color YELLOW Urine Appearance SLIGHTLY-CLOUDY Urine pH 5.0 Ur Specific [place] 1.014 Urine Protein 30 H Urine Glucose (UA) NEGATIVE Urine Ketones NEGATIVE Urine Blood SMALL H Urine Nitrite NEGATIVE Ur Leukocyte Esterase NEGATIVE Urine WBC (Auto) 2 Urine RBC (Auto) 4 03/10/18 03/10/18 04:12 05:45 WBC RBC Hgb Hct MCV MCH MCHC RDW Plt Count Seg Neutrophils % Lymphocytes % Monocytes % Eosinophils % Basophils % Absolute Neutrophils Absolute Lymphocytes Absolute Monocytes Absolute Eosinophils Absolute Basophils Carbonic Acid 1.56 H HCO3/H2CO3 Ratio 16:1 ABG pH 7.32 L ABG pCO2 51.7 H ABG pO2 80.4 ABG HCO3 26.2 H ABG O2 Saturation 94.9 ABG Base Excess -0.4 FiO2 60% Sodium 143.1 Potassium 4.7 Chloride 106 Carbon Dioxide 27 Anion Gap 10 BUN 12 Creatinine 0.86 Est GFR ( Amer) > 60 Est GFR (Non-Af Amer) > 60 Glucose 148 H Calcium 9.4 Total Bilirubin 0.4 AST 24 ALT 22 Alkaline Phosphatase 63 Total Protein 6.8 Albumin 4.1 Urine Color Urine Appearance Urine pH Ur Specific [place] Urine Protein Urine Glucose (UA) Urine Ketones Urine Blood Urine Nitrite Ur Leukocyte Esterase Urine WBC (Auto) Urine RBC (Auto) 03/10/18 03/10/18 03/10/18 04:12 05:32 05:32 Creatine Kinase 304 H CK-MB (CK-2) 3.56 Troponin I < 0.012 NT-Pro-B Natriuret Pep 191 H Impressions: Chest X-Ray 03/09/18 21:34 IMPRESSION: Endotracheal tube in place above the level the frank Assessment & Plan - Diagnosis (1) Acute respiratory failure with hypoxia and hypercapnia Is this a current diagnosis for this admission?: Yes Plan: Patient is admitted to the ICU and treated with mechanical ventilation via endotracheal tube. Dr. Goodson is consulting and he and I have discussed the case extensively today. Patient's chest x-ray has been reviewed personally by myself. Additionally I have ordered daily lab work of a venous blood gases and a daily chest x-ray while the patient is on a ventilator. (2) Acute severe exacerbation of asthma Is this a current diagnosis for this admission?: Yes Plan: Patient will be treated with intravenous steroids utilizing Solu-Medrol and aggressive pulmonary toilet utilizing levalbuterol, ipratropium, budesonide and Mucomyst. He will be followed with daily lab work including a CBC, BMP, magnesium level as well as a daily chest x-ray. - Time Time Spent with patient: 35 or more minutes Medications reviewed and adjusted accordingly: Yes Anticipated discharge: Home
[2018-03-10 11:58] LABS: ANION GAP 10 (5-19); BLOOD UREA NITROGEN 13 mg/dL (7-20); CALCIUM 9.6 mg/dL (8.4-10.2); CARBON DIOXIDE 28 mmol/L (22-30); CHLORIDE 104 mmol/L (98-107); CREATINE KINASE 272 U/L (55-170); GLUCOSE 142 mg/dL (75-110); POTASSIUM 4.3 mmol/L (3.6-5.0); SODIUM 141.8 mmol/L (137-145)
[2018-03-10] MEDS ORDERED: MAGNESIUM SULFATE/D5W 1 GM/100 ML RTUPB IV ONE (12:00)
[2018-03-10 12:11] LABS: ABSOLUTE LYMPHOCYTES# (MANUAL) 0.5 10^3/uL (0.5-4.7); ABSOLUTE MONOCYTES # (MANUAL) 0.1 10^3/uL (0.1-1.4); ABSOLUTE NEUTROPHILS# (MANUAL) 10.2 10^3/uL (1.7-8.2); BASOPHILS % (MANUAL) 0 % (0-2); EOSINOPHILS % (MANUAL) 0 % (0-6); LYMPHOCYTES % (MANUAL) 5 % (13-45); MONOCYTES % (MANUAL) 1 % (3-13); SEGMENTED NEUTROPHILS % (MAN) 94 % (42-78); TOTAL CELLS COUNTED 100
[2018-03-10 12:12] LABS: ANISOCYTOSIS SLIGHT; OVALOCYTES 1+; PLATELET COMMENT ADEQUATE; POIKILOCYTOSIS 1+; TARGET CELLS 1+
[2018-03-10 12:21] LABS: CREATINE KINASE MB 3.86 ng/mL (<4.55)
[2018-03-10 12:23] LABS: TROPONIN I < 0.012 ng/mL
--- NOTE | 2018-03-10 12:23 | PDOC CONSULTATION ---
Consultation Consult Date: 03/10/18 Attending physician:: SANJUANITA PARKS Consult reason:: resp failure History of Present Illness Admission Date/PCP: 03/09/18 22:20 History of Present Illness: MARILIN HARRINGTON is a 38 year old male, presented to the emergency room increasing shortness of breath has history of asthma tobacco abuse he was subsequently intubated and is currently in ICU intubated and sedated. Past Medical History Pulmonary Medical History: Reports: Asthma, Bronchitis Denies: Chronic Obstructive Pulmonary Disease (COPD), Intubation, Pneumonia, Respiratory Failure, Sleep Apnea, Tuberculosis Neurological Medical History: Denies: Migraine, Seizures Endocrine Medical History: Denies: Diabetes Mellitus Type 1, Diabetes Mellitus Type 2, Hyperthyroidism, Hypothyroidism Musculoskeltal Medical History: Reports: Other - Rib fracture of 3-7. Clavicle fracture. Psychiatric Medical History: Reports: Bipolar Disorder, Substance Abuse Infectious Medical History: Reports: Methicillin-Resistant Staph Aureus Past Surgical History Past Surgical History: Reports: Orthopedic Surgery - R clavical; tibia Social History Information Source: [facility] Records Smoking Status: Current Some Day Smoker Frequency of Alcohol Use: Occasional Hx Recreational Drug Use: Yes Drugs: Cocaine, Marijuana Hx Prescription Drug Abuse: No - Advance Directive Resuscitation Status: Full Code Family History Family History: Hypertension, Other - Unobtainable Parental Family History Reviewed: No Children Family History Reviewed: No Sibling(s) Family History Reviewed.: No Medication/Allergy Allergies/Adverse Reactions: tramadol Allergy (Verified 09/08/17 13:08) Review of Systems ROS unobtainable: Due to endotracheal tube Physical Exam Vital Signs: Temp Pulse Resp BP Pulse Ox 98.8 F 93 20 136/81 H 94 03/10/18 08:00 03/10/18 08:00 03/10/18 08:00 03/10/18 07:36 03/10/18 08:00 Intake & Output 03/09/18 03/10/18 03/11/18 06:59 06:59 06:59 Intake Total 1120 Output Total 1090 350 Balance 30 -350 Weight 78 kg General appearance: PRESENT: no acute distress, disheveled, thin, well-developed , well-nourished Head exam: PRESENT: atraumatic, normocephalic Eye exam: PRESENT: conjunctiva pale, EOMI. ABSENT: nystagmus, periorbital swelling, scleral icterus Mouth exam: PRESENT: dry mucosa, neck supple, tongue midline, other - ET tube in place Neck exam: ABSENT: carotid bruit, JVD, lymphadenopathy, thyromegaly, tracheal deviation, tracheostomy Respiratory exam: PRESENT: prolonged expiratory phas, rales, rhonchi, unlabored , wheezes. ABSENT: retraction, stridor Cardiovascular exam: PRESENT: RRR, +S1, +S2, tachycardia Pulses: PRESENT: normal radial pulses GI/Abdominal exam: PRESENT: soft. ABSENT: tenderness Gentrourinary exam: PRESENT: indwelling catheter Extremities exam: ABSENT: calf tenderness, clubbing, joint swelling Musculoskeletal exam: ABSENT: deformity, dislocation Neurological exam: PRESENT: awake, oriented to person. ABSENT: oriented to place, oriented to time, oriented to situation Skin exam: PRESENT: dry, warm Results Laboratory Results: 03/10/18 04:12 03/10/18 04:12 03/09/18 03/09/18 03/10/18 22:55 23:45 04:12 WBC 11.2 H RBC 4.43 Hgb 11.8 L Hct 35.8 L MCV 81 MCH 26.6 L MCHC 32.9 RDW 15.8 H Plt Count 241 Seg Neutrophils % Not Reportable Lymphocytes % Not Reportable Monocytes % Not Reportable Eosinophils % Not Reportable Basophils % Not Reportable Absolute Neutrophils Not Reportable Absolute Lymphocytes Not Reportable Absolute Monocytes Not Reportable Absolute Eosinophils Not Reportable Absolute Basophils Not Reportable Carbonic Acid 2.15 H HCO3/H2CO3 Ratio 13:1 ABG pH 7.23 L ABG pCO2 71.4 H* ABG pO2 349.7 H ABG HCO3 29.2 H ABG O2 Saturation 99.7 H ABG Base Excess 0.1 FiO2 70% Sodium Potassium Chloride Carbon Dioxide Anion Gap BUN Creatinine Est GFR ( Amer) Est GFR (Non-Af Amer) Glucose Calcium Total Bilirubin AST ALT Alkaline Phosphatase Total Protein Albumin Urine Color YELLOW Urine Appearance SLIGHTLY-CLOUDY Urine pH 5.0 Ur Specific [place] 1.014 Urine Protein 30 H Urine Glucose (UA) NEGATIVE Urine Ketones NEGATIVE Urine Blood SMALL H Urine Nitrite NEGATIVE Ur Leukocyte Esterase NEGATIVE Urine WBC (Auto) 2 Urine RBC (Auto) 4 03/10/18 03/10/18 04:12 05:45 WBC RBC Hgb Hct MCV MCH MCHC RDW Plt Count Seg Neutrophils % Lymphocytes % Monocytes % Eosinophils % Basophils % Absolute Neutrophils Absolute Lymphocytes Absolute Monocytes Absolute Eosinophils Absolute Basophils Carbonic Acid 1.56 H HCO3/H2CO3 Ratio 16:1 ABG pH 7.32 L ABG pCO2 51.7 H ABG pO2 80.4 ABG HCO3 26.2 H ABG O2 Saturation 94.9 ABG Base Excess -0.4 FiO2 60% Sodium 143.1 Potassium 4.7 Chloride 106 Carbon Dioxide 27 Anion Gap 10 BUN 12 Creatinine 0.86 Est GFR ( Amer) > 60 Est GFR (Non-Af Amer) > 60 Glucose 148 H Calcium 9.4 Total Bilirubin 0.4 AST 24 ALT 22 Alkaline Phosphatase 63 Total Protein 6.8 Albumin 4.1 Urine Color Urine Appearance Urine pH Ur Specific [place] Urine Protein Urine Glucose (UA) Urine Ketones Urine Blood Urine Nitrite Ur Leukocyte Esterase Urine WBC (Auto) Urine RBC (Auto) 03/10/18 03/10/18 03/10/18 04:12 05:32 05:32 Creatine Kinase 304 H CK-MB (CK-2) 3.56 Troponin I < 0.012 NT-Pro-B Natriuret Pep 191 H Impressions: Chest X-Ray 03/09/18 21:34 IMPRESSION: Endotracheal tube in place above the level the frank Assessment & Plan - Diagnosis (1) Acute respiratory failure Qualifiers: Respiratory failure complication: hypoxia Qualified Code(s): J96.01 - Acute respiratory failure with hypoxia Is this a current diagnosis for this admission?: Yes Plan: On mechanical ventilation oxygenate to keep SaO2 90% or greater ventilate maintain normal pH (2) Acute severe exacerbation of asthma Is this a current diagnosis for this admission?: Yes Plan: Inhaled corticosteroid to current medical regimen - Time Total Critical Time (Minutes): 50
[2018-03-10 13:28] LABS: ARTERIAL BLOOD BASE EXCESS 3.3 mmol/L; ARTERIAL BLOOD H2CO3 1.43 mmol/L (1.05-1.35); ARTERIAL BLOOD HCO3 28.8 mmol/L (20-24); ARTERIAL BLOOD O2 SATURATION 94.1 % (94-98); ARTERIAL BLOOD PCO2 47.5 mmHg (35-45); ARTERIAL BLOOD PO2 70.9 mmHg (80-100); ARTERIAL BLOOD TOTAL CO2 30.2 mmol/L (23-27)
[2018-03-10 13:29] LABS: ARTERIAL BLOOD FIO2 45%
[2018-03-10] MEDS: METHYLPREDNISOLONE INJ 125 MG/2 ML SDV IV SCH ×2 (14:39→21:20)
[2018-03-10] MEDS: IPRATROPIUM BROMIDE 0.02% NEB 0.5 MG/2.5 ML AMPUL NEB SCH (15:53)
[2018-03-10] MEDS: LEVALBUTEROL HCL NEB 1.25 MG/3 ML AMPUL NEB SCH (15:53)
[2018-03-10] MEDS: NORMAL SALINE 1000 ML 1,000 ML with THIAMINE HCL 100 MG, MVI, ADULT NO.1 WITH VIT K 10 ... IV SCH ×4 (17:23)
[2018-03-10 18:02] LABS: CREATINE KINASE MB 3.28 ng/mL (<4.55)
[2018-03-10 18:08] LABS: TROPONIN I < 0.012 ng/mL
[2018-03-10] MEDS: ALBUTEROL SULFATE 0.083% NEB 2.5 MG/3 ML AMPUL NEB PRN (20:41)
[2018-03-10] MEDS: LEVOFLOXACIN 750 MG/D5W RTU 750 MG/150 ML RTUPB IV SCH (21:19)
[2018-03-10] MEDS: MONTELUKAST SODIUM 10 MG TABLET PO SCH (21:20)
[2018-03-10] MEDS: POTASSI CL 20 MEQ/D5-1/2NS 1L 1,000 ML IV PRN (22:44)
[2018-03-11] MEDS: LEVALBUTEROL HCL NEB 1.25 MG/3 ML AMPUL NEB SCH ×4 (00:32→23:47)
[2018-03-11] MEDS: IPRATROPIUM BROMIDE 0.02% NEB 0.5 MG/2.5 ML AMPUL NEB SCH ×4 (00:32→23:47)
[2018-03-11] MEDS: MIDAZOLAM HCL 50 MG/100 ML RTUINJ IV PRN ×5 (02:17→23:40)
[2018-03-11] MEDS: PROPOFOL 1,000 MG/100 ML INFUS..BTL IV PRN ×7 (02:18→23:39)
[2018-03-11 04:31] LABS: HEMATOCRIT 37.4 % (37.9-51.0); HEMOGLOBIN 12.2 g/dL (13.5-17.0); MEAN CORPUSCULAR HEMOGLOBIN 26.5 pg (27.0-33.4); MEAN CORPUSCULAR HGB CONC 32.7 g/dL (32.0-36.0); MEAN CORPUSCULAR VOLUME 81 fl (80-97); PLATELET COUNT 267 10^3/uL (150-450); RED BLOOD COUNT 4.62 10^6/uL (4.35-5.55); WHITE BLOOD COUNT 13.7 10^3/uL (4.0-10.5)
[2018-03-11 04:48] LABS: ALANINE AMINOTRANSFERASE 26 U/L (21-72); ALBUMIN 4.3 g/dL (3.5-5.0); ALKALINE PHOSPHATASE 65 U/L (38-126); ANION GAP 7 (5-19); ASPARTATE AMINO TRANSFERASE 16 U/L (17-59); BILIRUBIN,DIRECT 0.6 mg/dL (0.0-0.4); BILIRUBIN,TOTAL 0.7 mg/dL (0.2-1.3); BLOOD UREA NITROGEN 16 mg/dL (7-20); CARBON DIOXIDE 30 mmol/L (22-30); CHLORIDE 105 mmol/L (98-107); GLUCOSE 137 mg/dL (75-110); POTASSIUM 4.4 mmol/L (3.6-5.0); SODIUM 141.6 mmol/L (137-145); TOTAL PROTEIN 7.2 g/dL (6.3-8.2)
[2018-03-11 04:54] LABS: ARTERIAL BLOOD BASE EXCESS 2.9 mmol/L; ARTERIAL BLOOD FIO2 45%; ARTERIAL BLOOD H2CO3 1.26 mmol/L (1.05-1.35); ARTERIAL BLOOD HCO3 27.5 mmol/L (20-24); ARTERIAL BLOOD O2 SATURATION 96.4 % (94-98); ARTERIAL BLOOD PH 7.43 (7.35-7.45); ARTERIAL BLOOD PO2 82.7 mmHg (80-100); ARTERIAL BLOOD TOTAL CO2 28.8 mmol/L (23-27)
[2018-03-11] MEDS: METHYLPREDNISOLONE INJ 125 MG/2 ML SDV IV SCH ×3 (05:09→21:40)
[2018-03-11] MEDS: HEPARIN SOD (PORCINE) 5,000 UNIT/ML 1 ML SYRINGE SUBCUT SCH ×3 (05:09→21:40)
--- NOTE | 2018-03-11 07:46 | RADIOLOGY REPORT (SQ) ---
EXAM DESCRIPTION: X-ray single view chest. CLINICAL HISTORY: 38 years Male, resp failure COMPARISON: Prior portable chest x-ray performed on 03/09/2018. TECHNIQUE: Single portable view of the chest performed on 03/11/2018 at 6:07 AM FINDINGS: The lungs are well expanded. There is a subtle curvilinear opacity projecting over the left inferolateral hemithorax likely due to to overlying artifact. A basilar pneumothorax is considered less likely. The cardiac silhouette is normal in size and configuration. The mediastinal contours are normal. No acute osseous abnormality is identified. No focal soft tissue abnormalities are seen. Lines and tubes: The tip of the endotracheal tube terminates at the level of the clavicular heads. The feeding tube tip extends below the diaphragm. IMPRESSION: 1. Subtle curvilinear opacity projecting over the left inferolateral hemithorax likely due to overlying artifact. A basilar pneumothorax is considered less likely. 2. Stable endotracheal tube. 3. New feeding tube which extends below the diaphragm. 4. No definite acute intrathoracic disease.
[2018-03-11] MEDS: BUDESONIDE NEB 0.5 MG/2 ML AMPUL NEB SCH ×2 (08:09→20:03)
[2018-03-11] MEDS: PANTOPRAZOLE SODIUM 40 MG VIAL IV SCH (10:37)
--- NOTE | 2018-03-11 10:37 | PDOC PROGRESS REPORT ---
Subjective Progress Note for:: 03/11/18 Subjective:: remains intubated Reason For Visit: ASTHMA EXACERBATION,ACUTE RESPIRATORY FAILURE, Physical Exam Vital Signs: Temp Pulse Resp BP Pulse Ox 99.5 F 85 29 H 154/94 H 96 03/11/18 08:00 03/11/18 08:12 03/11/18 08:12 03/11/18 07:56 03/11/18 08:12 Intake & Output 03/10/18 03/11/18 03/12/18 06:59 06:59 06:59 Intake Total 1120 693 161 Output Total 1090 3275 400 Balance 30 -4612 -291 Weight 78 kg 75.1 kg General appearance: PRESENT: no acute distress, disheveled, thin, well-developed , well-nourished. ABSENT: cooperative Head exam: PRESENT: atraumatic, normocephalic Eye exam: PRESENT: conjunctiva pale. ABSENT: nystagmus, periorbital swelling, scleral icterus Mouth exam: PRESENT: dry mucosa, neck supple, tongue midline, other - ET tube in place Neck exam: ABSENT: carotid bruit, JVD, lymphadenopathy, thyromegaly, tracheal deviation, tracheostomy Respiratory exam: PRESENT: decreased breath sounds, prolonged expiratory phas, rhonchi, symmetrical, tachypnea, unlabored, wheezes. ABSENT: retraction, stridor Cardiovascular exam: PRESENT: RRR, +S1, +S2, tachycardia Pulses: PRESENT: normal radial pulses GI/Abdominal exam: PRESENT: soft. ABSENT: tenderness Gentrourinary exam: PRESENT: indwelling catheter Extremities exam: ABSENT: calf tenderness, clubbing, joint swelling Musculoskeletal exam: ABSENT: ambulatory, deformity, dislocation Neurological exam: ABSENT: awake Skin exam: PRESENT: dry, warm Results Laboratory Results: 03/11/18 04:06 03/11/18 04:06 03/10/18 03/10/18 03/10/18 11:19 11:19 12:56 WBC 10.9 H RBC 4.40 Hgb 12.0 L Hct 35.4 L MCV 81 MCH 27.2 MCHC 33.8 RDW 15.8 H Plt Count 276 Seg Neutrophils % Not Reportable Lymphocytes % Not Reportable Monocytes % Not Reportable Eosinophils % Not Reportable Basophils % Not Reportable Absolute Neutrophils Not Reportable Absolute Lymphocytes Not Reportable Absolute Monocytes Not Reportable Absolute Eosinophils Not Reportable Absolute Basophils Not Reportable Carbonic Acid 1.43 H HCO3/H2CO3 Ratio 20:1 ABG pH 7.40 ABG pCO2 47.5 H ABG pO2 70.9 L ABG HCO3 28.8 H ABG O2 Saturation 94.1 ABG Base Excess 3.3 FiO2 45% Sodium 141.8 Potassium 4.3 Chloride 104 Carbon Dioxide 28 Anion Gap 10 BUN 13 Creatinine 0.86 Est GFR ( Amer) > 60 Est GFR (Non-Af Amer) > 60 Glucose 142 H Calcium 9.6 Magnesium 2.2 Total Bilirubin AST ALT Alkaline Phosphatase Total Protein Albumin TSH 03/11/18 03/11/18 03/11/18 04:06 04:06 04:11 WBC 13.7 H RBC 4.62 Hgb 12.2 L Hct 37.4 L MCV 81 MCH 26.5 L MCHC 32.7 RDW 16.0 H Plt Count 267 Seg Neutrophils % Lymphocytes % Monocytes % Eosinophils % Basophils % Absolute Neutrophils Absolute Lymphocytes Absolute Monocytes Absolute Eosinophils Absolute Basophils Carbonic Acid HCO3/H2CO3 Ratio ABG pH ABG pCO2 ABG pO2 ABG HCO3 ABG O2 Saturation ABG Base Excess FiO2 Sodium 141.6 Potassium 4.4 Chloride 105 Carbon Dioxide 30 Anion Gap 7 BUN 16 Creatinine 0.92 Est GFR ( Amer) > 60 Est GFR (Non-Af Amer) > 60 Glucose 137 H Calcium 9.0 Magnesium 2.6 H Total Bilirubin 0.7 AST 16 L ALT 26 Alkaline Phosphatase 65 Total Protein 7.2 Albumin 4.3 TSH 0.03 L 03/11/18 04:40 WBC RBC Hgb Hct MCV MCH MCHC RDW Plt Count Seg Neutrophils % Lymphocytes % Monocytes % Eosinophils % Basophils % Absolute Neutrophils Absolute Lymphocytes Absolute Monocytes Absolute Eosinophils Absolute Basophils Carbonic Acid 1.26 HCO3/H2CO3 Ratio 21:1 ABG pH 7.43 ABG pCO2 42.0 ABG pO2 82.7 ABG HCO3 27.5 H ABG O2 Saturation 96.4 ABG Base Excess 2.9 FiO2 45% Sodium Potassium Chloride Carbon Dioxide Anion Gap BUN Creatinine Est GFR ( Amer) Est GFR (Non-Af Amer) Glucose Calcium Magnesium Total Bilirubin AST ALT Alkaline Phosphatase Total Protein Albumin TSH 03/10/18 03/10/18 03/10/18 04:12 05:32 05:32 Creatine Kinase 304 H CK-MB (CK-2) 3.56 Troponin I < 0.012 NT-Pro-B Natriuret Pep 191 H 03/10/18 03/10/18 03/10/18 11:19 11:19 17:25 Creatine Kinase 272 H 239 H CK-MB (CK-2) 3.86 Troponin I < 0.012 NT-Pro-B Natriuret Pep 03/10/18 17:25 Creatine Kinase CK-MB (CK-2) 3.28 Troponin I < 0.012 NT-Pro-B Natriuret Pep Impressions: Chest X-Ray 03/11/18 06:00 IMPRESSION: 1. Subtle curvilinear opacity projecting over the left inferolateral hemithorax likely due to overlying artifact. A basilar pneumothorax is considered less likely. 2. Stable endotracheal tube. 3. New feeding tube which extends below the diaphragm. 4. No definite acute intrathoracic disease. Assessment & Plan - Diagnosis (1) Acute respiratory failure Qualifiers: Respiratory failure complication: hypoxia Qualified Code(s): J96.01 - Acute respiratory failure with hypoxia Is this a current diagnosis for this admission?: Yes Plan: Minute volume 14-15 L/min (2) Acute severe exacerbation of asthma Is this a current diagnosis for this admission?: Yes Plan: Slightly more air movement but still very coarse airway sounds - Time Total Critical Time (Minutes): 40
--- NOTE | 2018-03-11 15:12 | PDOC PROGRESS REPORT ---
Subjective Progress Note for:: 03/11/18 Subjective:: ISABELLA ALBERTS is a 38 year old male who presented to the emergency room with a 3-day history of progressively worsening dyspnea despite taking 60 mg of prednisone that he had at home for use when he experiences an exacerbation of his asthma. Mr. Alberts has a past medical history of asthma, bronchitis, tobacco and polysubstance abuse. In the emergency room he was found to have acute respiratory decompensation and was rapidly intubated. He was subsequently started on Solu-Medrol, magnesium, albuterol by the emergency room provider. His ABG revealed a PCO2 of 70 and as he was maintained on the ventilator and transferred to the ICU for care by the hospitalist service. 03/10/18: Patient is unable to provide subjective input since he is sedated and on a ventilator. His examination reveals mild end expiratory wheezing and a minimally prolongated expiratory phase. He will be maintained on the ventilator for the rest the day at the direction of Dr. Goodson who is seeing the patient in consultation. Hopefully Mr. Alberts can be extubated tomorrow. 03/11/18: Nelson did not tolerate an attempt to wean him from assisted ventilatory support today. His blood gases were good with a normal pH, PO2 and PCO2. However once patient's ventilatory assistance was reduced he became very tachypneic and tachycardic and his ventilator support had to be reinstated to its previous level. Additional adjustments were made by Dr. Goodson and his blood gases will be rechecked in another attempt at withdrawing ventilatory support will be made again tomorrow if appropriate. Therefore Mr. Alberts is unable to participate in providing any subjective information as he is sedated and intubated. Reason For Visit: ASTHMA EXACERBATION,ACUTE RESPIRATORY FAILURE, Physical Exam Vital Signs: Temp Pulse Resp BP Pulse Ox 99.5 F 69 23 H 160/99 H 96 03/11/18 13:36 03/11/18 13:59 03/11/18 13:59 03/11/18 13:59 03/11/18 13:59 Intake & Output 03/09/18 03/10/18 03/11/18 23:59 23:59 23:59 Intake Total 1000 647 427 Output Total 210 2955 1810 Balance 790 2308 -1389 Weight 78 kg 78 kg 75.1 kg General appearance: PRESENT: well-developed, well-nourished, other - Sedated and intubated for mechanical ventilation Head exam: PRESENT: atraumatic, normocephalic Eye exam: ABSENT: conjunctival injection, scleral icterus Ear exam: PRESENT: normal external ear exam. ABSENT: drainage Mouth exam: PRESENT: moist, other - Endotracheal tube in good position Neck exam: ABSENT: thyromegaly, tracheal deviation Respiratory exam: PRESENT: symmetrical, other - On mechanical ventilation Cardiovascular exam: PRESENT: RRR, tachycardia. ABSENT: clicks, gallop, rubs Pulses: PRESENT: normal radial pulses, normal dorsalis pedis pul Vascular exam: PRESENT: normal capillary refill. ABSENT: pallor GI/Abdominal exam: PRESENT: normal bowel sounds, soft Rectal exam: PRESENT: deferred Extremities exam: ABSENT: joint swelling, pedal edema Musculoskeletal exam: ABSENT: deformity, dislocation Neurological exam: PRESENT: reflexes normal, other - Sedated Psychiatric exam: PRESENT: other - Sedated Skin exam: ABSENT: jaundice, rash, urticaria Results Laboratory Results: 03/11/18 04:06 03/11/18 04:06 03/11/18 03/11/18 03/11/18 04:06 04:06 04:11 WBC 13.7 H RBC 4.62 Hgb 12.2 L Hct 37.4 L MCV 81 MCH 26.5 L MCHC 32.7 RDW 16.0 H Plt Count 267 Carbonic Acid HCO3/H2CO3 Ratio ABG pH ABG pCO2 ABG pO2 ABG HCO3 ABG O2 Saturation ABG Base Excess FiO2 Sodium 141.6 Potassium 4.4 Chloride 105 Carbon Dioxide 30 Anion Gap 7 BUN 16 Creatinine 0.92 Est GFR ( Amer) > 60 Est GFR (Non-Af Amer) > 60 Glucose 137 H Calcium 9.0 Magnesium 2.6 H Total Bilirubin 0.7 AST 16 L ALT 26 Alkaline Phosphatase 65 Total Protein 7.2 Albumin 4.3 TSH 0.03 L 03/11/18 04:40 WBC RBC Hgb Hct MCV MCH MCHC RDW Plt Count Carbonic Acid 1.26 HCO3/H2CO3 Ratio 21:1 ABG pH 7.43 ABG pCO2 42.0 ABG pO2 82.7 ABG HCO3 27.5 H ABG O2 Saturation 96.4 ABG Base Excess 2.9 FiO2 45% Sodium Potassium Chloride Carbon Dioxide Anion Gap BUN Creatinine Est GFR ( Amer) Est GFR (Non-Af Amer) Glucose Calcium Magnesium Total Bilirubin AST ALT Alkaline Phosphatase Total Protein Albumin TSH 03/10/18 03/10/18 03/10/18 04:12 05:32 05:32 Creatine Kinase 304 H CK-MB (CK-2) 3.56 Troponin I < 0.012 NT-Pro-B Natriuret Pep 191 H 03/10/18 03/10/18 03/10/18 11:19 11:19 17:25 Creatine Kinase 272 H 239 H CK-MB (CK-2) 3.86 Troponin I < 0.012 NT-Pro-B Natriuret Pep 03/10/18 17:25 Creatine Kinase CK-MB (CK-2) 3.28 Troponin I < 0.012 NT-Pro-B Natriuret Pep Impressions: Chest X-Ray 03/11/18 06:00 IMPRESSION: 1. Subtle curvilinear opacity projecting over the left inferolateral hemithorax likely due to overlying artifact. A basilar pneumothorax is considered less likely. 2. Stable endotracheal tube. 3. New feeding tube which extends below the diaphragm. 4. No definite acute intrathoracic disease. Assessment & Plan - Diagnosis (1) Acute respiratory failure with hypoxia and hypercapnia Is this a current diagnosis for this admission?: Yes Plan: 03/10/18: Patient is admitted to the ICU and treated with mechanical ventilation via endotracheal tube. Dr. Goodson is consulting and he and I have discussed the case extensively today. Patient's chest x-ray has been reviewed personally by myself. Additionally I have ordered daily lab work of a venous blood gases and a daily chest x-ray while the patient is on a ventilator. 03/11/18: Mr. Alberts continues to be on mechanical ventilation. Dr. Goodson and I have discussed the case today. Patient's chest x-ray has been reviewed personally by myself. Additionally I have ordered daily lab work of CBC, BMP, Mg, VBG's and a daily chest x-ray while the patient is on a ventilator. (2) Acute severe exacerbation of asthma Is this a current diagnosis for this admission?: Yes Plan: 03/10/18: Patient will be treated with intravenous steroids utilizing Solu-Medrol and aggressive pulmonary toilet utilizing levalbuterol, ipratropium, budesonide and Mucomyst. He will be followed with daily lab work including a CBC, BMP, magnesium level as well as a daily chest x-ray. 03/11/18: Isabella will be contined on his current therapy, with a decrease in his solu- medrol dosage. CXR: show persistent bilateral pulmonary hyperexpansion/ hyperaeration. Daily labs and x-rays have been ordered. (3) Tachycardia with hypertension Is this a current diagnosis for this admission?: Yes Plan: Problem worsened by attempted weaning off ventilator. Continues to be elevated @ 160/96 and 106. Beta blocakde will be initiated with metoprolol IV. Also prn dosage of IV morphine 2 mg q1hr will be available for use at nursing discretion for pain or discomfort that may cause this problem. - Time Time Spent with patient: 35 or more minutes Anticipated discharge: Home
[2018-03-11] MEDS: METOPROLOL TARTRATE PF/INJ 5 MG/5 ML SDV IV SCH ×3 (15:52→23:14)
[2018-03-11] MEDS: NORMAL SALINE 1000 ML 1,000 ML with THIAMINE HCL 100 MG, MVI, ADULT NO.1 WITH VIT K 10 ... IV SCH ×4 (17:09)
[2018-03-11] MEDS: MORPHINE SULFATE 10 MG/ML INJ IV PRN (17:11)
[2018-03-11] MEDS: ALBUTEROL SULFATE 0.083% NEB 2.5 MG/3 ML AMPUL NEB PRN (20:03)
[2018-03-11] MEDS: LEVOFLOXACIN 750 MG/D5W RTU 750 MG/150 ML RTUPB IV SCH (21:40)
[2018-03-11] MEDS: MONTELUKAST SODIUM 10 MG TABLET PO SCH (21:41)
[2018-03-12] MEDS: PROPOFOL 1,000 MG/100 ML INFUS..BTL IV PRN ×7 (03:23→23:00)
[2018-03-12 04:21] LABS: HEMATOCRIT 40.5 % (37.9-51.0); HEMOGLOBIN 13.1 g/dL (13.5-17.0); MEAN CORPUSCULAR HEMOGLOBIN 26.2 pg (27.0-33.4); MEAN CORPUSCULAR HGB CONC 32.5 g/dL (32.0-36.0); MEAN CORPUSCULAR VOLUME 81 fl (80-97); PLATELET COUNT 244 10^3/uL (150-450); RED CELL DISTRIBUTION WIDTH 16.1 % (11.5-14.0)
[2018-03-12] MEDS: MORPHINE SULFATE 10 MG/ML INJ IV PRN ×2 (04:29→21:36)
[2018-03-12 04:36] LABS: ANION GAP 10 (5-19); BLOOD UREA NITROGEN 21 mg/dL (7-20); CARBON DIOXIDE 26 mmol/L (22-30); CHLORIDE 105 mmol/L (98-107); GLUCOSE 113 mg/dL (75-110); POTASSIUM 4.7 mmol/L (3.6-5.0); SODIUM 140.8 mmol/L (137-145)
[2018-03-12 04:50] LABS: ARTERIAL BLOOD H2CO3 1.18 mmol/L (1.05-1.35); ARTERIAL BLOOD HCO3 27.8 mmol/L (20-24); ARTERIAL BLOOD O2 SATURATION 94.2 % (94-98); ARTERIAL BLOOD PCO2 39.2 mmHg (35-45); ARTERIAL BLOOD PH 7.47 (7.35-7.45)
[2018-03-12 05:03] LABS: ARTERIAL BLOOD FIO2 45%
[2018-03-12] MEDS: HEPARIN SOD (PORCINE) 5,000 UNIT/ML 1 ML SYRINGE SUBCUT SCH ×3 (05:21→21:36)
[2018-03-12] MEDS: METOPROLOL TARTRATE PF/INJ 5 MG/5 ML SDV IV SCH ×6 (05:21→23:37)
[2018-03-12] MEDS: METHYLPREDNISOLONE INJ 125 MG/2 ML SDV IV SCH ×3 (05:21→21:36)
[2018-03-12] MEDS: MIDAZOLAM HCL 50 MG/100 ML RTUINJ IV PRN ×3 (06:29→19:47)
--- NOTE | 2018-03-12 07:41 | RADIOLOGY REPORT (SQ) ---
EXAM DESCRIPTION: CHEST SINGLE VIEW COMPLETED DATE/TIME: 03/12/2018 7:31 am REASON FOR STUDY: resp failure COMPARISON: Chest films 03/11/2018, 03/09/2018, 10/30/2017 CT chest 09/08/2017 EXAM PARAMETERS: NUMBER OF VIEWS: One view. TECHNIQUE: Single frontal radiographic view of the chest acquired. RADIATION DOSE: NA LIMITATIONS: None. FINDINGS: LUNGS AND PLEURA: There is collapse and consolidation in the left lower lobe worrisome for pneumonia. Minimal left upper lobe perihilar airspace disease worrisome for early or developing pneumonia. No left pleural effusion or pneumothorax. Right lung well inflated and clear. MEDIASTINUM AND HILAR STRUCTURES: No masses. Contour normal. HEART AND VASCULAR STRUCTURES: Heart normal in size. Normal vasculature. BONES: No acute findings. HARDWARE: Endotracheal tube tip 7 cm above the frank. Nasogastric tube tip and side port in the sto mach. OTHER: No other significant finding. IMPRESSION: Collapse and consolidation in the left lower lobe worrisome for pneumonia. Endotracheal tube tip 7 cm above the frank, tube tip is at the level of the clavicular heads TECHNICAL DOCUMENTATION: JOB ID: [id number] [employer]- All Rights Reserved Reading location - IP/workstation name: [email or web address]
[2018-03-12] MEDS: BUDESONIDE NEB 0.5 MG/2 ML AMPUL NEB SCH ×2 (07:49→20:04)
[2018-03-12] MEDS: IPRATROPIUM BROMIDE 0.02% NEB 0.5 MG/2.5 ML AMPUL NEB SCH ×2 (07:49→15:28)
[2018-03-12] MEDS: LEVALBUTEROL HCL NEB 1.25 MG/3 ML AMPUL NEB SCH ×2 (07:49→15:28)
[2018-03-12] MEDS: PANTOPRAZOLE SODIUM 40 MG VIAL IV SCH (08:30)
[2018-03-12] MEDS: ACETYLCYSTEINE 20% SOLN 800 MG/4 ML VIAL.NEB NEB SCH ×2 (10:57→20:04)
--- NOTE | 2018-03-12 11:22 | RADIOLOGY REPORT (SQ) ---
EXAM DESCRIPTION: CTA CHEST COMPLETED DATE/TIME: 03/12/2018 10:40 am REASON FOR STUDY: sob COMPARISON: None. TECHNIQUE: CT scan of the chest performed using helical scanning technique with dynamic intravenous contrast injection. Images reviewed with lung, soft tissue and bone windows. Reconstructed coronal and sagittal MPR images reviewed. Additional 3 dimensional post-processing performed to develop Maximal Intensity Projection images (CA P). All images stored on PACS. All CT scanners at this facility use dose modulation, iterative reconstruction, and/or weight based d osing when appropriate to reduce radiation dose to as low as reasonably achievable (ALARA). [facility]: Dose Right [facility]: CareDose [facility]: Dose Right [facility]: Teradose 4D [facility]: Qubole CONTRAST TYPE AND DOSE: contrast/concentration: Isovue 350.00 mg/ml; Total Contrast Delivered: 127.0 ml; Total Saline Delivered: 186.0 ml Contrast bolus optimized for the pulmonary arteries. Not diagnostic for the aorta. RENAL FUNCTION: BUN 21 creatinine 0.88 RADIATION DOSE: CT Rad equipment meets quality standard of care and radiation dose reduction techniq ues were employed. CTDIvol: 10.3 - 18.8 mGy. DLP: 854 mGy-cm. . LIMITATIONS: None. FINDINGS: LUNGS AND PLEURA: There is an endotracheal tube in appropriate position. There is segment al consolidation in the left lower lobe. Subsegmental airspace disease right lower lobe. More patch y airspace disease left upper lobe. No evidence of cavitation. No significant pleural fluid accumul ation. AORTA AND GREAT VESSELS: No aneurysm. Contrast bolus not optimized for the aorta. HEART: No pericardial effusion. No significant coronary artery calcifications. PULMONARY ARTERIES: No emboli visualized in the main pulmonary arteries or the segmental branches. HILAR AND MEDIASTINAL STRUCTURES: No adenopathy. Nasogastric tube in the stomach. HARDWARE: None in the chest. UPPER ABDOMEN: No significant findings. Limited exam. THYROID AND OTHER SOFT TISSUES: No masses. No adenopathy. BONES: No acute or significant finding. 3D MIPS: Confirm above findings. OTHER: No other significant finding. IMPRESSION: No PE. Bilateral pneumonia. COMMENT: Quality ID # [id number]: Final reports with documentation of one or more dose reduction techniques (e.g., Automated exposure control, adjustment of the mA and/or kV according to patient size, use of iterative reconstruction technique) TECHNICAL DOCUMENTATION: JOB ID: [id number] [employer]- All Rights Reserved Reading location - IP/workstation name: [email or web address]
[2018-03-12] MEDS: POTASSI CL 20 MEQ/D5-1/2NS 1L 1,000 ML IV PRN (13:05)
[2018-03-12] MEDS ORDERED: ERTAPENEM SODIUM INJ 1 GM VIAL IV ONE (13:48)
--- NOTE | 2018-03-12 13:50 | PDOC PROGRESS REPORT ---
Subjective Progress Note for:: 03/12/18 Subjective:: ISABELLA ALBERTS is a 38 year old male who presented to the emergency room with a 3-day history of progressively worsening dyspnea despite taking 60 mg of prednisone that he had at home for use when he experiences an exacerbation of his asthma. Mr. Alberts has a past medical history of asthma, bronchitis, tobacco and polysubstance abuse. In the emergency room he was found to have acute respiratory decompensation and was rapidly intubated. He was subsequently started on Solu-Medrol, magnesium, albuterol by the emergency room provider. His ABG revealed a PCO2 of 70 and as he was maintained on the ventilator and transferred to the ICU for care by the hospitalist service. 03/10/18: Patient is unable to provide subjective input since he is sedated and on a ventilator. His examination reveals mild end expiratory wheezing and a minimally prolongated expiratory phase. He will be maintained on the ventilator for the rest the day at the direction of Dr. Goodson who is seeing the patient in consultation. Hopefully Mr. Alberts can be extubated tomorrow. 03/11/18: Isabella did not tolerate an attempt to wean him from assisted ventilatory support today. His blood gases were good with a normal pH, PO2 and PCO2. However once patient's ventilatory assistance was reduced he became very tachypneic and tachycardic and his ventilator support had to be reinstated to its previous level. Additional adjustments were made by Dr. Goodson and his blood gases will be rechecked in another attempt at withdrawing ventilatory support will be made again tomorrow if appropriate. Therefore Mr. Alberts is unable to participate in providing any subjective information as he is sedated and intubated. 03/12/18: Isabella his again been unable to tolerate weaning from ventilatory assistance. His blood gases today showed a drop in his PO2 and thus a CTA of the chest was performed which was negative for pulmonary embolus. I have personally reviewed these films and have observed a left posterior medial basilar lobar/segmental pneumonia to be present. Antibiotic therapy will be initiated in consultation with Dr. Goodson. Isabella continues to be sedated to the point where he is unable to participate in providing any subjective input. Reason For Visit: ASTHMA EXACERBATION,ACUTE RESPIRATORY FAILURE, Physical Exam Vital Signs: Temp Pulse Resp BP Pulse Ox 99.9 F 84 24 H 154/99 H 98 03/12/18 13:03 03/12/18 08:27 03/12/18 13:03 03/12/18 13:03 03/12/18 13:03 Intake & Output 03/10/18 03/11/18 03/12/18 23:59 23:59 23:59 Intake Total 797 3062.2 1712.2 Output Total 2955 2885 2750 Balance -2158 177.2 -1037.8 Weight 78 kg 75.1 kg 74 kg General appearance: PRESENT: well-developed, well-nourished, other - Sedated and intubated for mechanical ventilation. Head exam: PRESENT: atraumatic, normocephalic Eye exam: PRESENT: conjunctiva pink. ABSENT: periorbital swelling, scleral icterus Ear exam: PRESENT: normal external ear exam. ABSENT: bleeding, drainage Mouth exam: PRESENT: neck supple, other - Excellent endotracheal tube position. Neck exam: ABSENT: thyromegaly, tracheal deviation Respiratory exam: PRESENT: decreased breath sounds - Mildly decreased breath sounds throughout all padgett, prolonged expiratory phas - Mild to moderately prolonged expiratory phase, symmetrical, wheezes - Expiratory wheezes present in all padgett, other - Mechanically ventilated via endotracheal tube. Cardiovascular exam: PRESENT: bradycardia - Desired bradycardia in the range of 50-60 is noted indicating excellent beta-blockade effect and the patient has improved control of his blood pressure., RRR. ABSENT: clicks, diastolic murmur , gallop, rubs, systolic murmur Vascular exam: PRESENT: normal capillary refill. ABSENT: pallor GI/Abdominal exam: PRESENT: normal bowel sounds, soft Rectal exam: PRESENT: deferred Extremities exam: ABSENT: joint swelling, pedal edema Musculoskeletal exam: ABSENT: deformity, dislocation Neurological exam: PRESENT: other - Sedated for ventilation Psychiatric exam: PRESENT: other - [id number] for ventilation Skin exam: ABSENT: jaundice, rash, urticaria Results Laboratory Results: 03/12/18 03:49 03/12/18 03:49 03/12/18 03/12/18 03/12/18 03:49 03:49 04:40 WBC 14.0 H RBC 5.00 Hgb 13.1 L Hct 40.5 MCV 81 MCH 26.2 L MCHC 32.5 RDW 16.1 H Plt Count 244 Carbonic Acid 1.18 HCO3/H2CO3 Ratio 23:1 ABG pH 7.47 H ABG pCO2 39.2 ABG pO2 66.0 L ABG HCO3 27.8 H ABG O2 Saturation 94.2 ABG Base Excess 4.0 FiO2 45% Sodium 140.8 Potassium 4.7 Chloride 105 Carbon Dioxide 26 Anion Gap 10 BUN 21 H Creatinine 0.88 Est GFR ( Amer) > 60 Est GFR (Non-Af Amer) > 60 Glucose 113 H Calcium 9.0 Magnesium 2.5 H 03/10/18 11:35 Tracheal Aspirate Gram Stain - Final 03/10/18 11:35 Tracheal Aspirate Sputum Culture - Final NORMAL HANNY 03/10/18 03/10/18 03/10/18 04:12 05:32 05:32 Creatine Kinase 304 H CK-MB (CK-2) 3.56 Troponin I < 0.012 NT-Pro-B Natriuret Pep 191 H 03/10/18 03/10/18 03/10/18 11:19 11:19 17:25 Creatine Kinase 272 H 239 H CK-MB (CK-2) 3.86 Troponin I < 0.012 NT-Pro-B Natriuret Pep 03/10/18 17:25 Creatine Kinase CK-MB (CK-2) 3.28 Troponin I < 0.012 NT-Pro-B Natriuret Pep Impressions: Chest X-Ray 03/12/18 06:00 IMPRESSION: Collapse and consolidation in the left lower lobe worrisome for pneumonia. Endotracheal tube tip 7 cm above the farnk, tube tip is at the level of the clavicular heads Chest/Abdomen CTA 03/12/18 09:15 IMPRESSION: No PE. Bilateral pneumonia. Assessment & Plan - Diagnosis (1) Acute respiratory failure with hypoxia and hypercapnia Is this a current diagnosis for this admission?: Yes Plan: 03/10/18: Patient is admitted to the ICU and treated with mechanical ventilation via endotracheal tube. Dr. Goodson is consulting and he and I have discussed the case extensively today. Patient's chest x-ray has been reviewed personally by myself. Additionally I have ordered daily lab work of a venous blood gases and a daily chest x-ray while the patient is on a ventilator. 03/11/18: Mr. Alberts continues to be on mechanical ventilation. Dr. Goodson and I have discussed the case today. Patient's chest x-ray has been reviewed personally by myself. Additionally I have ordered daily lab work of CBC, BMP, Mg, VBG's and a daily chest x-ray while the patient is on a ventilator. 03/12/18: Mr. Alberts continues to require mechanical ventilation having failed efforts at withdrawing ventilatory assistance again today. His chest x-ray is unchanged but a CTA of his chest revealed a left lower lobe posterior medial basilar segmental/lobar pneumonia. This is felt to be most likely responsible for his increased hypoxemia on today's blood gas evaluation. We will continue daily lab work as described above with daily chest x-rays. He will be started on additional IV antibiotic therapy in conjunction with consultation with Dr. Goodson. (2) Acute severe exacerbation of asthma Is this a current diagnosis for this admission?: Yes Plan: 03/10/18: Patient will be treated with intravenous steroids utilizing Solu-Medrol and aggressive pulmonary toilet utilizing levalbuterol, ipratropium, budesonide and Mucomyst. He will be followed with daily lab work including a CBC, BMP, magnesium level as well as a daily chest x-ray. 03/11/18: Isabella will be contined on his current therapy, with a decrease in his solu- medrol dosage. CXR: show persistent bilateral pulmonary hyperexpansion/ hyperaeration. Daily labs and x-rays have been ordered. 03/12/18: Patient is continued on his current asthma regimen. Additional antibiotics will be added for treatment of his newly discovered left lower lobe pneumonia. Continue daily laboratory evaluations as noted above. (3) Tachycardia with hypertension Is this a current diagnosis for this admission?: Yes Plan: Problem worsened by attempted weaning off ventilator. Continues to be elevated @ 160/96 and 106. Beta blocakde will be initiated with metoprolol IV. Also prn dosage of IV morphine 2 mg q1hr will be available for use at nursing discretion for pain or discomfort that may cause this problem. 03/12/18: Mild his blood pressure has been in better control since initiation of metoprolol IV therapy. This will be continued and a goal heart rate of 50-60 will hopefully be achieved with a concomitant reduction in his blood pressure. This will be monitored closely through the remainder of his hospital course. Patient is still able to receive morphine 2 mg IV every hour as needed pain or discomfort which may be indicated by a sudden rise in the patient's blood pressure or heart rate. (4) Left lower lobe pneumonia Qualifiers: Pneumonia type: due to unspecified organism Qualified Code(s): J18.1 - Lobar pneumonia, unspecified organism Is this a current diagnosis for this admission?: Yes Plan: Left lower lobe pneumonia was identified today on CTA of the chest. Antibiotic therapy was continued utilizing Levaquin in conjunction with consultation by Dr. Goodson, and additional coverage will also be obtained by adding intravenous Invanz 1 g daily. Daily laboratory evaluations obtained and follow- up of other problems will be used in monitoring the course of his pneumonia. - Time Time Spent with patient: 35 or more minutes Medications reviewed and adjusted accordingly: Yes Anticipated discharge: Home
--- NOTE | 2018-03-12 14:53 | XCELERA REPORT ---
[address] [address] Transthoracic Echocardiogram Report Name: MARILIN HARRINGTON Age: 38 yrs Gender: Male : 1980 Patient Status: Inpatient Patient Location: ICU^602^A Study Date: 03/12/2018 10:55 AM Procedure: A two-dimensional transthoracic echocardiogram with color flow and Doppler was performed. Study Quality: Fair. Note additional images obtained to get apical 2 chamber views. Reason For Study: Evaluate cardiac function History: TACHYCARDIA / HYPERTENSION. Ordering Physician: NORIS SANTILLAN Performed By: Ary Kong Interpretation Summary The left ventricle is normal in size. There is normal left ventricular wall thickness. LV EF is > than 60% Left ventricular systolic function is normal. Doppler measurements suggest normal left ventricular diastolic function The left ventricular wall motion is normal. There is no thrombus. The right ventricle is grossly normal size. The right atrium is normal. The left atrial size is normal. The interatrial septum is intact with no evidence for an atrial septal defect. There is no evidence of mitral valve prolapse. There is no vegetation seen on the mitral valve. There is no mitral valve stenosis. There is no mitral regurgitation noted. The aortic valve is trileaflet. The aortic valve opens well. There is no aortic valvular vegetation. There is no aortic valve stenosis There is no LVOT obstruction. No aortic regurgitation is present. There is no tricuspid stenosis. There is a trace amount of tricuspid regurgitation Unable to calculate RVSP due lack of TR jet. There is no pulmonic valvular stenosis. There is no pulmonic valvular regurgitation. The aortic root is normal size. There is no pericardial effusion. MMode/2D Measurements & Calculations RVDd: 3.5 cm LVIDd: 5.7 cm FS: 37.7 % Ao root diam: 3.2 cm IVSd: 0.66 cm LVIDs: 3.6 cm EDV(Teich): 160.9 ml Ao root area: 8.0 cm2 LVPWd: 0.74 cm ESV(Teich): 52.9 ml EF(Teich): 67.1 % Doppler Measurements & Calculations MV E max debra: MV dec slope: Ao V2 max: LV V1 max P.0 cm/sec 120.2 cm/sec 3.3 mmHg MV A max debra: 471.0 cm/sec2 Ao max PG: LV V1 max: 49.9 cm/sec MV dec time: 0.16 sec 5.8 mmHg 91.0 cm/sec MV E/A: 1.5 PA V2 max: 107.4 cm/sec PA max P.6 mmHg Left Ventricle The left ventricle is normal in size. There is normal left ventricular wall thickness. LV EF is > than 60%. Left ventricular systolic function is normal. Doppler measurements suggest normal left ventricular diastolic function. The left ventricular wall motion is normal. There is no thrombus. There is no ventricular septal defect visualized. Right Ventricle The right ventricle is grossly normal size. Atria The right atrium is normal. The left atrial size is normal. The interatrial septum is intact with no evidence for an atrial septal defect. Mitral Valve There is no evidence of mitral valve prolapse. There is no vegetation seen on the mitral valve. There is no mitral valve stenosis. There is no mitral regurgitation noted. Aortic Valve The aortic valve is trileaflet. The aortic valve opens well. There is no aortic valvular vegetation. There is no aortic valve stenosis. There is no LVOT obstruction. No aortic regurgitation is present. Tricuspid Valve There is no tricuspid stenosis. There is a trace amount of tricuspid regurgitation. Unable to calculate RVSP due lack of TR jet. Pulmonic Valve There is no pulmonic valvular stenosis. There is no pulmonic valvular regurgitation. Great Vessels The aortic root is normal size. Effusions There is no pericardial effusion. : NORIS SANTILLAN > Pamella Garza
--- NOTE | 2018-03-12 15:35 | RADIOLOGY REPORT (SQ) ---
EXAM DESCRIPTION: CHEST SINGLE VIEW COMPLETED DATE/TIME: 03/12/2018 3:25 pm REASON FOR STUDY: resp. failure COMPARISON: Earlier the same day. EXAM PARAMETERS: NUMBER OF VIEWS: One view. TECHNIQUE: Single frontal radiographic view of the chest acquired. RADIATION DOSE: NA LIMITATIONS: None. FINDINGS: LUNGS AND PLEURA: Left lower lobe airspace disease not significantly changed. No pneumoth orax. MEDIASTINUM AND HILAR STRUCTURES: No masses. Contour normal. HEART AND VASCULAR STRUCTURES: Heart normal in size. Normal vasculature. BONES: No acute findings. HARDWARE: None in the chest. OTHER: Endotracheal tube tip between thoracic inlet and frank. Nasogastric tube extends into the le ft lower quadrant. IMPRESSION: Good position of support apparatus. No pneumothorax. TECHNICAL DOCUMENTATION: JOB ID: [id number] [employer]- All Rights Reserved Reading location - IP/workstation name: [email or web address]
[2018-03-12] MEDS: NORMAL SALINE 1000 ML 1,000 ML with THIAMINE HCL 100 MG, MVI, ADULT NO.1 WITH VIT K 10 ... IV SCH ×4 (17:37)
[2018-03-12] MEDS: ERTAPENEM SODIUM 1 GM in NORMAL SALINE 50 ML IV SCH (17:37)
[2018-03-12] MEDS: ALBUTEROL SULFATE 0.083% NEB 2.5 MG/3 ML AMPUL NEB PRN (20:04)
[2018-03-12] MEDS: LEVOFLOXACIN 750 MG/D5W RTU 750 MG/150 ML RTUPB IV SCH (21:35)
[2018-03-12] MEDS: ACETAMINOPHEN 325 MG TABLET NG PRN (23:00)
[2018-03-12] MEDS: MONTELUKAST SODIUM 10 MG TABLET NG SCH (23:01)
[2018-03-13] MEDS: PROPOFOL 1,000 MG/100 ML INFUS..BTL IV PRN ×7 (01:28→21:13)
[2018-03-13] MEDS: MIDAZOLAM HCL 50 MG/100 ML RTUINJ IV PRN ×5 (01:28→22:29)
[2018-03-13] MEDS: METOPROLOL TARTRATE PF/INJ 5 MG/5 ML SDV IV SCH ×5 (04:09→20:11)
[2018-03-13 04:15] LABS: HEMATOCRIT 41.5 % (37.9-51.0); HEMOGLOBIN 13.5 g/dL (13.5-17.0); MEAN CORPUSCULAR HEMOGLOBIN 26.4 pg (27.0-33.4); MEAN CORPUSCULAR HGB CONC 32.5 g/dL (32.0-36.0); MEAN CORPUSCULAR VOLUME 81 fl (80-97); PLATELET COUNT 269 10^3/uL (150-450); RED BLOOD COUNT 5.11 10^6/uL (4.35-5.55); RED CELL DISTRIBUTION WIDTH 16.2 % (11.5-14.0); WHITE BLOOD COUNT 11.8 10^3/uL (4.0-10.5)
[2018-03-13 04:28] LABS: ANION GAP 9 (5-19); BLOOD UREA NITROGEN 22 mg/dL (7-20); CALCIUM 8.7 mg/dL (8.4-10.2); CARBON DIOXIDE 29 mmol/L (22-30); CHLORIDE 104 mmol/L (98-107); GLUCOSE 112 mg/dL (75-110); TRIGLYCERIDES 168 mg/dL (<150)
[2018-03-13 05:48] LABS: ARTERIAL BLOOD BASE EXCESS 3.8 mmol/L; ARTERIAL BLOOD FIO2 60%; ARTERIAL BLOOD H2CO3 1.33 mmol/L (1.05-1.35); ARTERIAL BLOOD HCO3 28.7 mmol/L (20-24); ARTERIAL BLOOD PCO2 44.2 mmHg (35-45); ARTERIAL BLOOD PH 7.43 (7.35-7.45); ARTERIAL BLOOD PO2 79.7 mmHg (80-100)
[2018-03-13] MEDS: METHYLPREDNISOLONE INJ 125 MG/2 ML SDV IV SCH ×3 (05:48→22:29)
[2018-03-13] MEDS: HEPARIN SOD (PORCINE) 5,000 UNIT/ML 1 ML SYRINGE SUBCUT SCH ×3 (05:48→22:29)
--- NOTE | 2018-03-13 06:46 | RADIOLOGY REPORT (SQ) ---
EXAM DESCRIPTION: X-ray single view chest. CLINICAL HISTORY: 38 years Male, resp failure/pna COMPARISON: Prior portable chest performed on 03/12/2018. TECHNIQUE: Single portable view of the chest performed on 03/13/2018 at 6:02 AM FINDINGS: The lungs are hyperinflated. There is stable airspace disease in the left lower lobe. There is chronic volume loss in the right lower lobe. There is no definite pneumothorax. The cardiac silhouette is normal in size and configuration. The mediastinal contours are normal. No acute osseous abnormality is identified. There is a chronic comminuted right clavicular fracture. There is new pneumomediastinum and subcutaneous emphysema projecting over the lower neck and upper chest. Lines and tubes: The tip of the endotracheal tube terminates just below the clavicular heads. The feeding tube extends below the diaphragm and projects over the left upper quadrant. IMPRESSION: 1. Persistent airspace disease in the left lower lobe concerning for a pneumonic infiltrate. 2. Chronic volume loss in the right lower lobe. 3. New subcutaneous emphysema projecting over the lower neck and superior mediastinum consistent with probable pneumomediastinum. 4. Life support lines and tubes present as described above.
[2018-03-13] MEDS: BUDESONIDE NEB 0.5 MG/2 ML AMPUL NEB SCH ×2 (07:56→21:00)
[2018-03-13] MEDS: IPRATROPIUM BROMIDE 0.02% NEB 0.5 MG/2.5 ML AMPUL NEB SCH ×4 (07:56→23:51)
[2018-03-13] MEDS: ACETYLCYSTEINE 20% SOLN 800 MG/4 ML VIAL.NEB NEB SCH ×2 (07:56→20:59)
[2018-03-13] MEDS: LEVALBUTEROL HCL NEB 1.25 MG/3 ML AMPUL NEB SCH ×4 (07:56→23:51)
[2018-03-13] MEDS: PANTOPRAZOLE SODIUM 40 MG VIAL IV SCH (11:11)
[2018-03-13] MEDS: ACETAMINOPHEN 325 MG TABLET NG PRN ×2 (11:19→21:13)
[2018-03-13] MEDS: POTASSI CL 20 MEQ/D5-1/2NS 1L 1,000 ML IV PRN ×2 (11:37→20:06)
--- NOTE | 2018-03-13 14:27 | PDOC PROGRESS REPORT ---
Subjective Progress Note for:: 03/13/18 Subjective:: ISABELLA ALBERTS is a 38 year old male who presented to the emergency room with a 3-day history of progressively worsening dyspnea despite taking 60 mg of prednisone that he had at home for use when he experiences an exacerbation of his asthma. Mr. Alberts has a past medical history of asthma, bronchitis, tobacco and polysubstance abuse. In the emergency room he was found to have acute respiratory decompensation and was rapidly intubated. He was subsequently started on Solu-Medrol, magnesium, albuterol by the emergency room provider. His ABG revealed a PCO2 of 70 and as he was maintained on the ventilator and transferred to the ICU for care by the hospitalist service. 03/10/18: Patient is unable to provide subjective input since he is sedated and on a ventilator. His examination reveals mild end expiratory wheezing and a minimally prolongated expiratory phase. He will be maintained on the ventilator for the rest the day at the direction of Dr. Goodson who is seeing the patient in consultation. Hopefully Mr. Alberts can be extubated tomorrow. 03/11/18: Isabella did not tolerate an attempt to wean him from assisted ventilatory support today. His blood gases were good with a normal pH, PO2 and PCO2. However once patient's ventilatory assistance was reduced he became very tachypneic and tachycardic and his ventilator support had to be reinstated to its previous level. Additional adjustments were made by Dr. Goodson and his blood gases will be rechecked in another attempt at withdrawing ventilatory support will be made again tomorrow if appropriate. Therefore Mr. Alberts is unable to participate in providing any subjective information as he is sedated and intubated. 03/12/18: Isabella his again been unable to tolerate weaning from ventilatory assistance. His blood gases today showed a drop in his PO2 and thus a CTA of the chest was performed which was negative for pulmonary embolus. I have personally reviewed these films and have observed a left posterior medial basilar lobar/segmental pneumonia to be present. Antibiotic therapy will be initiated in consultation with Dr. Goodson. Isabella continues to be sedated to the point where he is unable to participate in providing any subjective input. 03/13/18: The patient is again unable to tolerate weaning from ventilatory assistance. His blood gases were excellent with a pH of 7.43 a PCO2 of 44 and a PO2 of 80 but this required 60% oxygen to obtain that result. She has is for the patient to tolerate ventilatory withdrawal at that level are very poor. Patient was noted to have subcutaneous emphysema in his bilateral anterior neck (plane of the platysmus muscles) today. On exam his wheezing is substantially reduced and his expiratory phase is substantially reduced. Again he is sedated and unable to provide subjective input into his care. Reason For Visit: ASTHMA EXACERBATION,ACUTE RESPIRATORY FAILURE, Physical Exam Vital Signs: Temp Pulse Resp BP Pulse Ox 100.0 F 92 24 H 153/112 H 97 03/13/18 13:00 03/13/18 12:00 03/13/18 13:00 03/13/18 12:37 03/13/18 13:00 Intake & Output 03/11/18 03/12/18 03/13/18 23:59 23:59 23:59 Intake Total 3062.2 2112.2 2789.2 Output Total 2885 4250 2410 Balance 177.2 -2137.8 379.2 Weight 75.1 kg 74 kg 72.5 kg General appearance: PRESENT: other - Sedated for endotracheal intubation and ventilation. Head exam: PRESENT: atraumatic, normocephalic Eye exam: ABSENT: conjunctival injection, periorbital swelling, scleral icterus Mouth exam: PRESENT: neck supple, other - Endotracheal tube is in good position Neck exam: ABSENT: thyromegaly, tracheal deviation Respiratory exam: PRESENT: clear to auscultation jada, symmetrical, other - On mechanical ventilation Cardiovascular exam: PRESENT: RRR. ABSENT: clicks, gallop, rubs Vascular exam: PRESENT: normal capillary refill. ABSENT: pallor GI/Abdominal exam: PRESENT: normal bowel sounds, soft Rectal exam: PRESENT: deferred Extremities exam: ABSENT: joint swelling, pedal edema Musculoskeletal exam: PRESENT: normal inspection. ABSENT: ambulatory, deformity , dislocation Neurological exam: PRESENT: reflexes normal, other - Sedated for ventilation Psychiatric exam: PRESENT: other - Sedated for ventilation with no further evaluation Skin exam: ABSENT: jaundice, rash, urticaria Results Laboratory Results: 03/13/18 03:55 03/13/18 03:55 03/13/18 03/13/18 03/13/18 03:55 03:55 05:40 WBC 11.8 H RBC 5.11 Hgb 13.5 Hct 41.5 MCV 81 MCH 26.4 L MCHC 32.5 RDW 16.2 H Plt Count 269 Carbonic Acid 1.33 HCO3/H2CO3 Ratio 21:1 ABG pH 7.43 ABG pCO2 44.2 ABG pO2 79.7 L ABG HCO3 28.7 H ABG O2 Saturation 96.0 ABG Base Excess 3.8 FiO2 60% Sodium 142.0 Potassium 5.0 Chloride 104 Carbon Dioxide 29 Anion Gap 9 BUN 22 H Creatinine 0.84 Est GFR ( Amer) > 60 Est GFR (Non-Af Amer) > 60 Glucose 112 H Calcium 8.7 Magnesium 2.6 H Triglycerides 168 H 03/10/18 11:35 Tracheal Aspirate Gram Stain - Final 03/10/18 11:35 Tracheal Aspirate Sputum Culture - Final NORMAL HANNY 03/10/18 03/10/18 03/10/18 04:12 05:32 05:32 Creatine Kinase 304 H CK-MB (CK-2) 3.56 Troponin I < 0.012 NT-Pro-B Natriuret Pep 191 H 03/10/18 03/10/18 03/10/18 11:19 11:19 17:25 Creatine Kinase 272 H 239 H CK-MB (CK-2) 3.86 Troponin I < 0.012 NT-Pro-B Natriuret Pep 03/10/18 17:25 Creatine Kinase CK-MB (CK-2) 3.28 Troponin I < 0.012 NT-Pro-B Natriuret Pep Impressions: Chest/Abdomen CTA 03/12/18 09:15 IMPRESSION: No PE. Bilateral pneumonia. Chest X-Ray 03/13/18 06:00 IMPRESSION: 1. Persistent airspace disease in the left lower lobe concerning for a pneumonic infiltrate. 2. Chronic volume loss in the right lower lobe. 3. New subcutaneous emphysema projecting over the lower neck and superior mediastinum consistent with probable pneumomediastinum. 4. Life support lines and tubes present as described above. Assessment & Plan - Diagnosis (1) Acute respiratory failure with hypoxia and hypercapnia Is this a current diagnosis for this admission?: Yes Plan: 03/10/18: Patient is admitted to the ICU and treated with mechanical ventilation via endotracheal tube. Dr. Goodson is consulting and he and I have discussed the case extensively today. Patient's chest x-ray has been reviewed personally by myself. Additionally I have ordered daily lab work of a venous blood gases and a daily chest x-ray while the patient is on a ventilator. 03/11/18: Mr. Alberts continues to be on mechanical ventilation. Dr. Goodson and I have discussed the case today. Patient's chest x-ray has been reviewed personally by myself. Additionally I have ordered daily lab work of CBC, BMP, Mg, VBG's and a daily chest x-ray while the patient is on a ventilator. 03/12/18: Mr. Alberts continues to require mechanical ventilation having failed efforts at withdrawing ventilatory assistance again today. His chest x-ray is unchanged but a CTA of his chest revealed a left lower lobe posterior medial basilar segmental/lobar pneumonia. This is felt to be most likely responsible for his increased hypoxemia on today's blood gas evaluation. We will continue daily lab work as described above with daily chest x-rays. He will be started on additional IV antibiotic therapy in conjunction with consultation with Dr. Goodson. 03/13/18: Mr. Alberts is continued on the ventilator today. I reviewed his chest x-ray which is essentially unchanged from yesterday's film although the left lower lobe pneumonia in the retrocardiac space is more apparent today. Additionally he is noted to have subcutaneous emphysema in the cervical region. There is otherwise continued hyperexpansion/hyper aeration of the bilateral lung padgett. His blood gases are normal on 60% oxygen but this is not a favorable FiO2 to initiate weaning. His ventilator settings have been adjusted by Dr. Goodson in response to his findings today with hopes of obtaining a more favorable setting for ventilator respiratory support withdrawal in the near future. Continue daily chest x-rays and ABGs. (2) Left lower lobe pneumonia Qualifiers: Pneumonia type: due to unspecified organism Qualified Code(s): J18.1 - Lobar pneumonia, unspecified organism Is this a current diagnosis for this admission?: Yes Plan: Left lower lobe pneumonia was identified today on CTA of the chest. Antibiotic therapy was continued utilizing Levaquin in conjunction with consultation by Dr. Goodson, and additional coverage will also be obtained by adding intravenous Invanz 1 g daily. Daily laboratory evaluations obtained and follow- up of other problems will be used in monitoring the course of his pneumonia. 03/13/18: Patient's white blood count has again fallen and shows a good response to antibiotic therapy. Additionally patient's exam shows improvement in the patient's clinical respiratory status with reduction in his wheezing and improvement of his chest air motion. His treatment will be continued with current medications and daily laboratory evaluation of his CBC, BMP and magnesium levels will be obtained. (3) Acute severe exacerbation of asthma Is this a current diagnosis for this admission?: Yes Plan: 03/10/18: Patient will be treated with intravenous steroids utilizing Solu-Medrol and aggressive pulmonary toilet utilizing levalbuterol, ipratropium, budesonide and Mucomyst. He will be followed with daily lab work including a CBC, BMP, magnesium level as well as a daily chest x-ray. 03/11/18: Isabella will be contined on his current therapy, with a decrease in his solu- medrol dosage. CXR: show persistent bilateral pulmonary hyperexpansion/ hyperaeration. Daily labs and x-rays have been ordered. 03/12/18: Patient is continued on his current asthma regimen. Additional antibiotics will be added for treatment of his newly discovered left lower lobe pneumonia. Continue daily laboratory evaluations as noted above. 03/13/18: Mr. Alberts'jake current regimen will be continued as per the recommendations of Dr. Goodson. (4) Tachycardia with hypertension Is this a current diagnosis for this admission?: Yes Plan: Problem worsened by attempted weaning off ventilator. Continues to be elevated @ 160/96 and 106. Beta blocakde will be initiated with metoprolol IV. Also prn dosage of IV morphine 2 mg q1hr will be available for use at nursing discretion for pain or discomfort that may cause this problem. 03/12/18: Samuel blood pressure has been in better control since initiation of metoprolol IV therapy. This will be continued and a goal heart rate of 50-60 will hopefully be achieved with a concomitant reduction in his blood pressure. This will be monitored closely through the remainder of his hospital course. Patient is still able to receive morphine 2 mg IV every hour as needed pain or discomfort which may be indicated by a sudden rise in the patient's blood pressure or heart rate. 03/13/18: Mr. Mena blood pressure continues to be reasonably well-controlled utilizing intravenous metoprolol every 4 hours. His systolic pressure is consistently in the 140-160 range which is permissible though not at desired goal of 120-140 for a ventilator patient of this age. His diastolic pressure however is consistently greater than 100 which is not permissible. Therefore he will have hydralazine 20 mg IV every 4 hours initiated as antihypertensive therapy. The hydralazine may contribute to tachycardia or an increase in heart rate however the benefit of diastolic pressure reduction is considerably greater than the potential for a low-grade tachycardia. If tachycardia is too substantial additional medications or changes to his regiment will need to be made. - Time Time Spent with patient: 35 or more minutes Medications reviewed and adjusted accordingly: Yes Anticipated discharge: Home
[2018-03-13] MEDS: HYDRALAZINE HCL INJ/PF 20 MG/1 ML SDV IV SCH ×2 (16:01→20:10)
[2018-03-13] MEDS: ERTAPENEM SODIUM 1 GM in NORMAL SALINE 50 ML IV SCH (16:01)
[2018-03-13] MEDS: NORMAL SALINE 1000 ML 1,000 ML with THIAMINE HCL 100 MG, MVI, ADULT NO.1 WITH VIT K 10 ... IV SCH ×4 (17:31)
[2018-03-13 17:53] LABS: ARTERIAL BLOOD BASE EXCESS 5.2 mmol/L; ARTERIAL BLOOD H2CO3 1.29 mmol/L (1.05-1.35); ARTERIAL BLOOD HCO3 29.7 mmol/L (20-24); ARTERIAL BLOOD O2 SATURATION 92.4 % (94-98); ARTERIAL BLOOD PCO2 42.9 mmHg (35-45); ARTERIAL BLOOD PH 7.46 (7.35-7.45); ARTERIAL BLOOD PO2 60.6 mmHg (80-100)
[2018-03-13 17:55] LABS: ARTERIAL BLOOD FIO2 60%
--- NOTE | 2018-03-13 18:05 | RADIOLOGY REPORT (SQ) ---
EXAM DESCRIPTION: CHEST SINGLE VIEW COMPLETED DATE/TIME: 03/13/2018 5:45 pm REASON FOR STUDY: Subcutaneous Emphysema COMPARISON: 03/13/2018 EXAM PARAMETERS: NUMBER OF VIEWS: One view. TECHNIQUE: Single frontal radiographic view of the chest acquired. RADIATION DOSE: NA LIMITATIONS: None. FINDINGS: LUNGS AND PLEURA: Patchy airspace disease in the left base. Marked lucency in the right b ase, cannot exclude loculated pneumothorax. . MEDIASTINUM AND HILAR STRUCTURES: No masses. Contour normal. HEART AND VASCULAR STRUCTURES: Heart normal in size. Normal vasculature. BONES: No acute findings. HARDWARE: None in the chest. OTHER: Extensive subcutaneous emphysema in the upper chest and neck. IMPRESSION: 1. Left lower lobe pneumonia. 2. Cannot exclude loculated pneumothorax the right base. 3. Extensive subcutaneous emphysema. TECHNICAL DOCUMENTATION: JOB ID: [id number] [employer]- All Rights Reserved Reading location - IP/workstation name: [email or web address]
[2018-03-13] MEDS: MORPHINE SULFATE 10 MG/ML INJ IV PRN ×2 (18:20→21:41)
--- NOTE | 2018-03-13 19:58 | Progress Note ---
Provider Note Provider Note: Critical care note: 17:29 Start critical care. Mr. Alberts was noted by nursing staff to have a sudden increase in his heart rate and to also become suddenly more restless while intubated. Additionally they noted rapid expansion of subcutaneous emphysema in his neck. They were concerned and asked me to look at the patient to which I complied. On my evaluation patient was found to be significantly tachycardic with a heart rate of 125 and he was restless stirring in the bed despite his propofol and midazolam drips. On auscultation the decrease in the breath sounds at the right base was noted anteriorly to the posterior axillary line. Examination of the neck revealed significant bilateral anterior cervical subcutaneous emphysema which was significantly increased from the degree of subcutaneous emphysema that was present at the time of my evaluation much earlier in the day. A chest x-ray and ABGs were ordered. ABGs revealed a 10 point drop in his PO2 from this morning's gases. The chest x -ray revealed a right basilar pneumothorax. With these findings a surgical consultation with Dr. Alvaro Centeno was obtained for placement of a surgical thoracostomy tube and under waterseal to evacuate the pneumothorax and maintain right lung inflation. Attempts to notify Dr. Goodson of the changes in the patient's status were unsuccessful. Dr. Centeno requested that the patient's medical decision-maker or power of deputy county attorney be contacted to obtain a surgical permit for placement of a chest tube in the right chest. 19:05 End critical care.
[2018-03-13] MEDS ORDERED: LIDOCAINE 1% INJ-PF (10 MG/ML) 30 ML SDV ONE (20:21)
[2018-03-13] MEDS: ALBUTEROL SULFATE 0.083% NEB 2.5 MG/3 ML AMPUL NEB PRN (21:00)
--- NOTE | 2018-03-13 21:08 | PDOC CONSULTATION ---
Consultation Consult Date: 03/13/18 Consult reason:: right pneumothorax History of Present Illness Admission Date/PCP: 03/09/18 22:20 History of Present Illness: MARILIN HARRINGTON is a 38 year old male with asthma, intubated; he developed a right chest and neck pneumothorax this afternoon. A chest mX-ray was obtained and it showed a right loculated pneumothorax along with a right sided neck and chest wall subcutaneous emphysema. No evidence of tension pneumothorax was identified. I have been consulted to place a right chest tube. Past Medical History Pulmonary Medical History: Reports: Asthma, Bronchitis Denies: Chronic Obstructive Pulmonary Disease (COPD), Intubation, Pneumonia, Respiratory Failure, Sleep Apnea, Tuberculosis Neurological Medical History: Denies: Migraine, Seizures Endocrine Medical History: Denies: Diabetes Mellitus Type 1, Diabetes Mellitus Type 2, Hyperthyroidism, Hypothyroidism Musculoskeltal Medical History: Reports: Other - Rib fracture of 3-7. Clavicle fracture. Psychiatric Medical History: Reports: Bipolar Disorder, Substance Abuse Infectious Medical History: Reports: Methicillin-Resistant Staph Aureus Past Surgical History Past Surgical History: Reports: Orthopedic Surgery - R clavical; tibia Social History Smoking Status: Current Some Day Smoker Frequency of Alcohol Use: Occasional Hx Recreational Drug Use: Yes Drugs: Cocaine, Marijuana Hx Prescription Drug Abuse: No - Advance Directive Resuscitation Status: Full Code Family History Family History: Hypertension, Other - Unobtainable Parental Family History Reviewed: Yes - HTN Children Family History Reviewed: No Sibling(s) Family History Reviewed.: No Medication/Allergy Home Medications: Albuterol Sulfate [Ventolin Hfa] 2 puff IH Q6HP PRN 03/10/18 Cetirizine HCl [Zyrtec] 10 mg PO DAILY 03/10/18 Fluticasone/Salmeterol [Advair 250-50 Diskus 28 dose] 1 puff IH Q12 03/10/18 Ipratropium/Albuterol Sulfate [Combivent Respimat Inhal Beaver] 1 puff IH QID Montelukast Sodium [Singulair 10 mg Tablet] 10 mg PO QHS 03/10/18 Tiotropium [place] [Spiriva Respimat] 2 puff IH DAILY 03/10/18 Allergies/Adverse Reactions: tramadol Allergy (Verified 09/08/17 13:08) Physical Exam Vital Signs: Temp Pulse Resp BP Pulse Ox 100.4 F 91 30 H 145/110 H 95 03/13/18 19:37 03/13/18 15:37 03/13/18 19:37 03/13/18 19:37 03/13/18 19:37 Intake & Output 03/12/18 03/13/18 03/14/18 06:59 06:59 06:59 Intake Total 2183.2 2158.2 3778.2 Output Total 2685 4650 2805 Balance -501.8 -2491.8 973.2 Weight 74 kg 72.5 kg General appearance: PRESENT: other - sedated, not responsive Respiratory exam: PRESENT: other - large subcutaneous emphysema of the anterior and right lateral neck and upper chest Results Laboratory Results: 03/13/18 03:55 03/13/18 03:55 03/13/18 03/13/18 03/13/18 03:55 03:55 05:40 WBC 11.8 H RBC 5.11 Hgb 13.5 Hct 41.5 MCV 81 MCH 26.4 L MCHC 32.5 RDW 16.2 H Plt Count 269 Carbonic Acid 1.33 HCO3/H2CO3 Ratio 21:1 ABG pH 7.43 ABG pCO2 44.2 ABG pO2 79.7 L ABG HCO3 28.7 H ABG O2 Saturation 96.0 ABG Base Excess 3.8 FiO2 60% Sodium 142.0 Potassium 5.0 Chloride 104 Carbon Dioxide 29 Anion Gap 9 BUN 22 H Creatinine 0.84 Est GFR ( Amer) > 60 Est GFR (Non-Af Amer) > 60 Glucose 112 H Calcium 8.7 Magnesium 2.6 H Triglycerides 168 H 03/13/18 17:40 WBC RBC Hgb Hct MCV MCH MCHC RDW Plt Count Carbonic Acid 1.29 HCO3/H2CO3 Ratio 23:1 ABG pH 7.46 H ABG pCO2 42.9 ABG pO2 60.6 L ABG HCO3 29.7 H ABG O2 Saturation 92.4 L ABG Base Excess 5.2 FiO2 60% Sodium Potassium Chloride Carbon Dioxide Anion Gap BUN Creatinine Est GFR ( Amer) Est GFR (Non-Af Amer) Glucose Calcium Magnesium Triglycerides 03/10/18 03/10/18 03/10/18 04:12 05:32 05:32 Creatine Kinase 304 H CK-MB (CK-2) 3.56 Troponin I < 0.012 NT-Pro-B Natriuret Pep 191 H 03/10/18 03/10/18 03/10/18 11:19 11:19 17:25 Creatine Kinase 272 H 239 H CK-MB (CK-2) 3.86 Troponin I < 0.012 NT-Pro-B Natriuret Pep 03/10/18 17:25 Creatine Kinase CK-MB (CK-2) 3.28 Troponin I < 0.012 NT-Pro-B Natriuret Pep Impressions: Chest/Abdomen CTA 03/12/18 09:15 IMPRESSION: No PE. Bilateral pneumonia. Chest X-Ray 03/13/18 17:30 IMPRESSION: 1. Left lower lobe pneumonia. 2. Cannot exclude loculated pneumothorax the right base. 3. Extensive subcutaneous emphysema. Assessment & Plan - Plan Summary Plan Summary: A/ Intubated patient with severe asthma Right pneumoithorax, non-tension upper chest and neck subcutaneous emphysema P/ Placement of right 32 F thoracostomy tube under local anesthesia Procedure, risks, benefits explained to the patient's family, their questions were answered, and they decided to proceed.
--- NOTE | 2018-03-13 21:13 | RADIOLOGY REPORT (SQ) ---
Portable chest 03/13/2018 at 9:01 PM. Compared to 03/13/2018 at 5:39 PM. HISTORY: Shortness of breath. FINDINGS: Endotracheal tube and enteric tube are in appropriate placement. Moderate upper chest and neck subcutaneous emphysema, as seen on the prior study. No significant pneumothorax is noted. IMPRESSION: Stable findings. No significant pneumothorax identified.
--- NOTE | 2018-03-13 21:21 | OPERATIVE REPORT E ---
Operative Report NAME: MARILIN HARRINGTON : 1980 AGE: 38Y DATE OF SURGERY: 03/13/2018 ROOM: 602 PREOPERATIVE DIAGNOSES: 1. RIGHT LOCULATED PNEUMOTHORAX. 2. RIGHT SUBCUTANEOUS EMPHYSEMA NECK AND CHEST. POSTOPERATIVE DIAGNOSES: 1. RIGHT LOCULATED PNEUMOTHORAX. 2. RIGHT SUBCUTANEOUS EMPHYSEMA NECK AND CHEST. OPERATION: Placement of right 22-Khmer thoracostomy tube. SURGEON: SILVERIO DELONG M.D. TRANSPORTATION ASSOCIATE: None. ESTIMATED BLOOD LOSS: Minimal, less than 5 mL. COMPLICATIONS: None. ANESTHESIA: About 20 mL of 1% lidocaine. INDICATIONS/FINDINGS: A 38-year-old male with severe asthma, intubated. Developed a pneumothorax on the right side, apparently loculated, preceded by the occurrence of subcutaneous emphysema of the right side of the chest and neck. Consent was obtained from the family to place a right chest tube. Procedure, risks, benefits, and complications explained to the family. They understand and decided to proceed. PROCEDURE: The procedure was done at the bedside in the ICU. The patient was placed in a semi-Sesay position and the right side of the chest was prepped and draped in a standard fashion. The area just anterior to the intersection of the nipple line and mid axillary line, was infiltrated with lidocaine. Incision was made with a #15 blade. The subcutaneous tissue was divided with a hemostat. The intercostal space was pierced with a large hemostat and the chest cavity was entered with a gush of air. Following this, a finger was inserted with opening of the intercostal space. A 32-Khmer chest tube was inserted through the intercostal space opening and advanced up to about 8 cm into the chest cavity, with good return of air, air bubbling into the water seal cavity of the Pleur-Evac as well as moisture in the chest tube. The chest tube was secured to the skin with 2-0 silk suture, Vaseline gauze and sterile dressing. Tape was then applied to secure the chest tube in position. The patient tolerated the procedure well. A chest x-ray was obtained to confirm position of the chest tube. DICTATING PHYSICIAN: SILVERIO DELONG M.D. [id number] PHY#: [id number] ID: [id number] JOB#: [id number] ACCT: [id number] cc:SILVERIO DELONG M.D. > MOHINDER
[2018-03-13] MEDS: MONTELUKAST SODIUM 10 MG TABLET NG SCH (22:29)
[2018-03-13] MEDS: LEVOFLOXACIN 750 MG/D5W RTU 750 MG/150 ML RTUPB IV SCH (22:30)
[2018-03-14 00:25] LABS: ARTERIAL BLOOD BASE EXCESS 3.6 mmol/L; ARTERIAL BLOOD H2CO3 1.15 mmol/L (1.05-1.35); ARTERIAL BLOOD HCO3 27.2 mmol/L (20-24); ARTERIAL BLOOD O2 SATURATION 96.4 % (94-98); ARTERIAL BLOOD PCO2 38.1 mmHg (35-45); ARTERIAL BLOOD PH 7.47 (7.35-7.45); ARTERIAL BLOOD PO2 79.5 mmHg (80-100); ARTERIAL BLOOD TOTAL CO2 28.4 mmol/L (23-27)
[2018-03-14 00:29] LABS: ARTERIAL BLOOD FIO2 80%
[2018-03-14] MEDS: METOPROLOL TARTRATE PF/INJ 5 MG/5 ML SDV IV SCH ×5 (00:44→16:32)
[2018-03-14] MEDS: HYDRALAZINE HCL INJ/PF 20 MG/1 ML SDV IV SCH ×5 (00:44→16:32)
[2018-03-14] MEDS: PROPOFOL 1,000 MG/100 ML INFUS..BTL IV PRN ×6 (00:47→16:32)
[2018-03-14] MEDS: MORPHINE SULFATE 10 MG/ML INJ IV PRN ×4 (01:35→17:59)
--- NOTE | 2018-03-14 02:44 | Progress Note ---
Provider Note Provider Note: Dr. 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 I called [facility] and he spoke with the cardiothoracic surgeon Dr. Magallanes who tells me that before transferring the patient to his service the patient needs a bronchoscopy to establish this diagnosis. Dr. Goodson is not going to be available today.
[2018-03-14] MEDS: MIDAZOLAM HCL 50 MG/100 ML RTUINJ IV PRN ×3 (03:17→17:31)
[2018-03-14 04:13] LABS: HEMOGLOBIN 13.6 g/dL (13.5-17.0); MEAN CORPUSCULAR HEMOGLOBIN 26.5 pg (27.0-33.4); MEAN CORPUSCULAR HGB CONC 33.1 g/dL (32.0-36.0); MEAN CORPUSCULAR VOLUME 80 fl (80-97); PLATELET COUNT 298 10^3/uL (150-450); RED BLOOD COUNT 5.12 10^6/uL (4.35-5.55); RED CELL DISTRIBUTION WIDTH 15.8 % (11.5-14.0); WHITE BLOOD COUNT 12.1 10^3/uL (4.0-10.5)
[2018-03-14 04:23] LABS: ANION GAP 12 (5-19); BLOOD UREA NITROGEN 26 mg/dL (7-20); CALCIUM 9.2 mg/dL (8.4-10.2); CARBON DIOXIDE 23 mmol/L (22-30); CHLORIDE 104 mmol/L (98-107); GLUCOSE 121 mg/dL (75-110); POTASSIUM 4.8 mmol/L (3.6-5.0); SODIUM 139.4 mmol/L (137-145)
[2018-03-14 04:33] LABS: ABSOLUTE LYMPHOCYTES# (MANUAL) 0.2 10^3/uL (0.5-4.7); ABSOLUTE MONOCYTES # (MANUAL) 0.6 10^3/uL (0.1-1.4); ABSOLUTE NEUTROPHILS# (MANUAL) 11.3 10^3/uL (1.7-8.2); BASOPHILS % (MANUAL) 0 % (0-2); EOSINOPHILS % (MANUAL) 0 % (0-6); LYMPHOCYTES % (MANUAL) 2 % (13-45); MONOCYTES % (MANUAL) 5 % (3-13); SEGMENTED NEUTROPHILS % (MAN) 93 % (42-78); TOTAL CELLS COUNTED 100
[2018-03-14 04:35] LABS: POLYCHROMASIA SLIGHT; TOXIC VACUOLATION PRESENT
[2018-03-14 04:36] LABS: ANISOCYTOSIS 1+; OVALOCYTES 3+; PLATELET COMMENT ADEQUATE; POIKILOCYTOSIS 3+; TARGET CELLS 2+
[2018-03-14] MEDS: METHYLPREDNISOLONE INJ 125 MG/2 ML SDV IV SCH ×2 (05:57→13:51)
[2018-03-14] MEDS: HEPARIN SOD (PORCINE) 5,000 UNIT/ML 1 ML SYRINGE SUBCUT SCH ×2 (05:58→13:51)
[2018-03-14 06:30] LABS: ARTERIAL BLOOD BASE EXCESS 3.8 mmol/L; ARTERIAL BLOOD H2CO3 1.14 mmol/L (1.05-1.35); ARTERIAL BLOOD HCO3 27.4 mmol/L (20-24); ARTERIAL BLOOD O2 SATURATION 97.8 % (94-98); ARTERIAL BLOOD PH 7.48 (7.35-7.45); ARTERIAL BLOOD PO2 96.7 mmHg (80-100); ARTERIAL BLOOD TOTAL CO2 28.6 mmol/L (23-27)
[2018-03-14 06:31] LABS: ARTERIAL BLOOD FIO2 80%
--- NOTE | 2018-03-14 07:14 | RADIOLOGY REPORT (SQ) ---
CLINICAL HISTORY: status asthma COMPARISON: March 13, 2018. TECHNIQUE: XR CHEST 1 VIEW 03/14/2018 6:00 AM CDT FINDINGS: Cardiac silhouette is normal in size. There is subcutaneous emphysema within the chest. There is no pleural effusion. There is a moderate right basilar pneumothorax. There are no acute osseous findings. Endotracheal tube is in place. NG tube is unchanged.. There is a right chest tube in place there is a mildly comminuted right clavicle fracture. IMPRESSION: No significant change. Persistent right basilar pneumothorax despite chest tube present.
[2018-03-14] MEDS: BUDESONIDE NEB 0.5 MG/2 ML AMPUL NEB SCH (08:20)
[2018-03-14] MEDS: IPRATROPIUM BROMIDE 0.02% NEB 0.5 MG/2.5 ML AMPUL NEB SCH ×2 (08:20→16:12)
[2018-03-14] MEDS: LEVALBUTEROL HCL NEB 1.25 MG/3 ML AMPUL NEB SCH ×2 (08:20→16:12)
[2018-03-14] MEDS: ACETYLCYSTEINE 20% SOLN 800 MG/4 ML VIAL.NEB NEB SCH (08:20)
[2018-03-14] MEDS: PANTOPRAZOLE SODIUM 40 MG VIAL IV SCH (09:35)
--- NOTE | 2018-03-14 11:35 | PDOC PROGRESS REPORT ---
Subjective Progress Note for:: 03/14/18 Subjective:: intubated, sedated Reason For Visit: ASTHMA EXACERBATION,ACUTE RESPIRATORY FAILURE, Physical Exam Vital Signs: Temp Pulse Resp BP Pulse Ox 99.5 F 95 29 H 146/90 H 95 03/14/18 10:00 03/14/18 08:00 03/14/18 10:00 03/14/18 09:37 03/14/18 10:00 Intake & Output 03/13/18 03/14/18 03/15/18 06:59 06:59 06:59 Intake Total 2158.2 4715.2 96 Output Total 4650 4305 125 Balance -2491.8 410.2 -29 Weight 72.5 kg 72.4 kg Neck exam: PRESENT: other - large bilateral subcutaneous emphysema extending from jaw to upper chest Respiratory exam: PRESENT: decreased breath sounds - biilaterally, rhonchi - on the right with wheezing Results Laboratory Results: 03/14/18 03:48 03/14/18 03:48 03/13/18 03/14/18 03/14/18 17:40 00:00 03:48 WBC 12.1 H RBC 5.12 Hgb 13.6 Hct 41.0 MCV 80 MCH 26.5 L MCHC 33.1 RDW 15.8 H Plt Count 298 Seg Neutrophils % Not Reportable Lymphocytes % Not Reportable Monocytes % Not Reportable Eosinophils % Not Reportable Basophils % Not Reportable Absolute Neutrophils Not Reportable Absolute Lymphocytes Not Reportable Absolute Monocytes Not Reportable Absolute Eosinophils Not Reportable Absolute Basophils Not Reportable Carbonic Acid 1.29 1.15 HCO3/H2CO3 Ratio 23:1 23:1 ABG pH 7.46 H 7.47 H ABG pCO2 42.9 38.1 ABG pO2 60.6 L 79.5 L ABG HCO3 29.7 H 27.2 H ABG O2 Saturation 92.4 L 96.4 ABG Base Excess 5.2 3.6 FiO2 60% 80% Sodium Potassium Chloride Carbon Dioxide Anion Gap BUN Creatinine Est GFR ( Amer) Est GFR (Non-Af Amer) Glucose Calcium Magnesium 03/14/18 03/14/18 03:48 05:30 WBC RBC Hgb Hct MCV MCH MCHC RDW Plt Count Seg Neutrophils % Lymphocytes % Monocytes % Eosinophils % Basophils % Absolute Neutrophils Absolute Lymphocytes Absolute Monocytes Absolute Eosinophils Absolute Basophils Carbonic Acid 1.14 HCO3/H2CO3 Ratio 24:1 ABG pH 7.48 H ABG pCO2 38.0 ABG pO2 96.7 ABG HCO3 27.4 H ABG O2 Saturation 97.8 ABG Base Excess 3.8 FiO2 80% Sodium 139.4 Potassium 4.8 Chloride 104 Carbon Dioxide 23 Anion Gap 12 BUN 26 H Creatinine 0.80 Est GFR ( Amer) > 60 Est GFR (Non-Af Amer) > 60 Glucose 121 H Calcium 9.2 Magnesium 2.5 H 03/10/18 03/10/18 03/10/18 04:12 05:32 05:32 Creatine Kinase 304 H CK-MB (CK-2) 3.56 Troponin I < 0.012 NT-Pro-B Natriuret Pep 191 H 03/10/18 03/10/18 03/10/18 11:19 11:19 17:25 Creatine Kinase 272 H 239 H CK-MB (CK-2) 3.86 Troponin I < 0.012 NT-Pro-B Natriuret Pep 03/10/18 17:25 Creatine Kinase CK-MB (CK-2) 3.28 Troponin I < 0.012 NT-Pro-B Natriuret Pep Impressions: Chest/Abdomen CTA 03/12/18 09:15 IMPRESSION: No PE. Bilateral pneumonia. Chest X-Ray 03/14/18 06:00 IMPRESSION: No significant change. Persistent right basilar pneumothorax despite chest tube present. Assessment & Plan - Diagnosis (1) Pneumothorax on right Is this a current diagnosis for this admission?: Yes - Plan Summary Plan Summary: A/ right pneumothorax, localized lower chest despite chest tube placement s/p right thoracostomy tube placement large air leak on Pleurovac chest Xray shows loculated right lower chest pneumothorax persisting despite chest tube P/ D/w Hospitalist and Dr. Goodson (Building Code Inspector Plan to obtain noncontrast CT chest to identify position of pneumothorax STAT today After the CT scan, my recommendation is that patient be transferred to a facility with Thoracic Surgery availability
--- NOTE | 2018-03-14 12:31 | RADIOLOGY REPORT (SQ) ---
EXAM DESCRIPTION: CT CHEST WITHOUT COMPLETED DATE/TIME: 03/14/2018 12:12 pm REASON FOR STUDY: PNEUMOTHORAX COMPARISON: CT chest 03/12/2018, 09/08/2017, 05/10/2009 TECHNIQUE: CT scan performed of the chest without intravenous contrast. Images reviewed with lung, soft tissue and bone windows. Reconstructed coronal and sagittal MPR images reviewed. All images st ored on PACS. All CT scanners at this facility use dose modulation, iterative reconstruction, and/or weight based d osing when appropriate to reduce radiation dose to as low as reasonably achievable (ALARA). [facility]: Dose Right [facility]: CareDose [facility]: Dose Right [facility]: Teradose 4D [facility]: [employer] RADIATION DOSE: CT Rad equipment meets quality standard of care and radiation dose reduction techniq ues were employed. CTDIvol: 5.8 mGy. DLP: 255 mGy-cm. mGy. LIMITATIONS: No technical limitations. FINDINGS: LUNGS AND PLEURA: A right-sided chest tube is present, with the tube coursing through the right upper lobe. The tip of the tube abuts the right hilum, between the right upper lobe pulmonary artery and superior vena cava. No mediastinal hematoma. This finding was discussed with Dr. Centeno , 1215 hours, 03/14/2018. There is complete collapse of the right lower lobe. Patchy airspace disease is present throughout the left lower lobe worrisome for pneumonia. Trace right apical and basilar pneumothorax is present. No right or left pleural effusion HILAR AND MEDIASTINAL STRUCTURES: Extensive mediastinal air is present, tracking into the neck soft t issues, bilateral supraclavicular regions, and anterior and posterior chest wall. HEART AND VASCULAR STRUCTURES: No aneurysm. No pericardial effusion. UPPER ABDOMEN: No significant findings. Limited exam. THYROID AND OTHER SOFT TISSUES: Extensive chest wall air. Thyroid unremarkable. BONES: Multiple old healed right upper rib fractures. Nonunited right clavicle fracture HARDWARE: Right chest tube as above. Nasogastric tube tip and side port in the stomach OTHER: No other significant findings. IMPRESSION: Right-sided chest tube courses through the right upper lobe parenchyma with tip between the SVC and right upper lobe pulmonary artery. Complete collapse right lower lobe Left lower lobe pneumonia Trace right apical and basilar pneumothorax. Extensive chest wall air. Results discussed with Dr. Centeno. TECHNICAL DOCUMENTATION: JOB ID: [id number] Quality ID # [id number]: Final reports with documentation of one or more dose reduction techniques (e.g., Au tomated exposure control, adjustment of the mA and/or kV according to patient size, use of iterative reconstruction technique) 2010 [employer]- All Rights Reserved Reading location - IP/workstation name: [email or web address]
--- NOTE | 2018-03-14 15:41 | PDOC TRANSFER SUMMARY ---
General Admission Date/PCP: 03/09/18 22:20 Admission Date: 03/09/18 Transfer Date: 03/14/18 Accepting Facility: [facility] Resuscitation Status: Full Code - Transfer Diagnosis (1) Acute respiratory failure with hypoxia and hypercapnia Is this a current diagnosis for this admission?: Yes Diagnosis Summary: 03/10/18: Patient is admitted to the ICU and treated with mechanical ventilation via endotracheal tube. Dr. Goodson is consulting and he and I have discussed the case extensively today. Patient's chest x-ray has been reviewed personally by myself. Additionally I have ordered daily lab work of a venous blood gases and a daily chest x-ray while the patient is on a ventilator. 03/11/18: Mr. Alberts continues to be on mechanical ventilation. Dr. Goodson and I have discussed the case today. Patient's chest x-ray has been reviewed personally by myself. Additionally I have ordered daily lab work of CBC, BMP, Mg, VBG's and a daily chest x-ray while the patient is on a ventilator. 03/12/18: Mr. Alberts continues to require mechanical ventilation having failed efforts at withdrawing ventilatory assistance again today. His chest x-ray is unchanged but a CTA of his chest revealed a left lower lobe posterior medial basilar segmental/lobar pneumonia. This is felt to be most likely responsible for his increased hypoxemia on today's blood gas evaluation. We will continue daily lab work as described above with daily chest x-rays. He will be started on additional IV antibiotic therapy in conjunction with consultation with Dr. Goodson. 03/13/18: Mr. Alberts is continued on the ventilator today. I reviewed his chest x-ray which is essentially unchanged from yesterday's film although the left lower lobe pneumonia in the retrocardiac space is more apparent today. Additionally he is noted to have subcutaneous emphysema in the cervical region. There is otherwise continued hyperexpansion/hyper aeration of the bilateral lung padgett. His blood gases are normal on 60% oxygen but this is not a favorable FiO2 to initiate weaning. His ventilator settings have been adjusted by Dr. Goodson in response to his findings today with hopes of obtaining a more favorable setting for ventilator respiratory support withdrawal in the near future. Continue daily chest x-rays and ABGs. 03/14/18: Patient remains on the ventilator for respiratory support. I reviewed his chest film today and it shows a persistence of the loculated right lateral lower lobe pneumothorax as well as the persistence of the left lower lobe pneumonia in the retrocardiac area and the generalized hyperaeration/ hyperinflation/hyperexpansion of the bilateral lungs.. His subcutaneous emphysema in the bilateral anterior cervical region is increased. His blood gases this morning showed a pH of 7.48 with a PCO2 of 38 and a PO2 of 97 on 80% FiO2. CT scan of his chest showed a chest tube embedded in the parenchyma of the right upper lobe, a complete collapse of the right lower lobe and the left lower lobe pneumonia was again identified. With these findings it was felt that it was best that the patient be transferred to a higher level of care as he will no doubt require pulmonology services and probable thoracic surgical services within the next 24-48 hours. (2) Left lower lobe pneumonia Is this a current diagnosis for this admission?: Yes Diagnosis Summary: 03/12/18: Left lower lobe pneumonia was identified today on CTA of the chest. Antibiotic therapy was continued utilizing Levaquin in conjunction with consultation by Dr. Goodson, and additional coverage will also be obtained by adding intravenous Invanz 1 g daily. Daily laboratory evaluations obtained and follow- up of other problems will be used in monitoring the course of his pneumonia. 03/13/18: Patient's white blood count has again fallen and shows a good response to antibiotic therapy. Additionally patient's exam shows improvement in the patient's clinical respiratory status with reduction in his wheezing and improvement of his chest air motion. His treatment will be continued with current medications and daily laboratory evaluation of his CBC, BMP and magnesium levels will be obtained. 03/14/18: Mr. Alberts will be transferred to [facility] for higher level of care due to other problems noted elsewhere in this document. (3) Acute severe exacerbation of asthma Is this a current diagnosis for this admission?: Yes Diagnosis Summary: 03/10/18: Patient will be treated with intravenous steroids utilizing Solu-Medrol and aggressive pulmonary toilet utilizing levalbuterol, ipratropium, budesonide and Mucomyst. He will be followed with daily lab work including a CBC, BMP, magnesium level as well as a daily chest x-ray. 03/11/18: Isabella will be contined on his current therapy, with a decrease in his solu- medrol dosage. CXR: show persistent bilateral pulmonary hyperexpansion/ hyperaeration. Daily labs and x-rays have been ordered. 03/12/18: Patient is continued on his current asthma regimen. Additional antibiotics will be added for treatment of his newly discovered left lower lobe pneumonia. Continue daily laboratory evaluations as noted above. 03/13/18: Mr. Alberts's current regimen will be continued as per the recommendations of Dr. Goodson. 03/14/18: Mr. Alberts will be transferred to [facility] for higher level of care due to other problems noted elsewhere in this document. (4) Tachycardia with hypertension Is this a current diagnosis for this admission?: Yes Diagnosis Summary: 03/11/18: Problem worsened by attempted weaning off ventilator. Continues to be elevated @ 160/96 and 106. Beta blocakde will be initiated with metoprolol IV. Also prn dosage of IV morphine 2 mg q1hr will be available for use at nursing discretion for pain or discomfort that may cause this problem. 03/12/18: Isabella's blood pressure has been in better control since initiation of metoprolol IV therapy. This will be continued and a goal heart rate of 50-60 will hopefully be achieved with a concomitant reduction in his blood pressure. This will be monitored closely through the remainder of his hospital course. Patient is still able to receive morphine 2 mg IV every hour as needed pain or discomfort which may be indicated by a sudden rise in the patient's blood pressure or heart rate. 03/13/18: Mr. Mena blood pressure continues to be reasonably well-controlled utilizing intravenous metoprolol every 4 hours. His systolic pressure is consistently in the 140-160 range which is permissible though not at desired goal of 120-140 for a ventilator patient of this age. His diastolic pressure however is consistently greater than 100 which is not permissible. Therefore he will have hydralazine 20 mg IV every 4 hours initiated as antihypertensive therapy. The hydralazine may contribute to tachycardia or an increase in heart rate however the benefit of diastolic pressure reduction is considerably greater than the potential for a low-grade tachycardia. If tachycardia is too substantial additional medications or changes to his regiment will need to be made. 03/14/18: Mr. Alberts will be transferred to [facility] for higher level of care due to other problems noted elsewhere in this document. (5) Pneumothorax on right Is this a current diagnosis for this admission?: Yes Diagnosis Summary: He was initially found with a loculated lower lung pneumothorax on the right about 5:00 PM last evening when he had a sudden change in his status. At that time he developed tachycardia, hypertension and severe restlessness. His sudden change resulted in the performance of a chest x-ray and arterial blood gases which demonstrated a 10 point decrease in his PO2 from his morning gases and a right lateral lower lung loculated pneumothorax. A chest x-ray was inserted by the general surgeon Dr. Alvaro Centeno and the patient was continued on ventilatory support. After after the chest x-ray was reported this morning a CT of the chest was done to evaluate the chest tube and to identify the area of the pneumothorax more clearly. The CT indicated that the chest tube was located within the parenchyma of the right upper lobe and the right lower lobe was completely collapsed. He is being transferred to [facility] primarily for management of this problem and the underlying change or injury that resulted in the pneumothorax. - Transfer Medications Home Medications: Albuterol Sulfate [Ventolin Hfa] 2 puff IH Q6HP PRN 03/10/18 Cetirizine HCl [Zyrtec] 10 mg PO DAILY 03/10/18 Fluticasone/Salmeterol [Advair 250-50 Diskus 28 dose] 1 puff IH Q12 03/10/18 Ipratropium/Albuterol Sulfate [Combivent Respimat Inhal [place]] 1 puff IH QID Montelukast Sodium [Singulair 10 mg Tablet] 10 mg PO QHS 03/10/18 Tiotropium [place] [Spiriva Respimat] 2 puff IH DAILY 03/10/18 Transfer Medications: Current Medications Acetaminophen (Tylenol 325 Mg Tablet) 650 mg NG Q6HP PRN PRN Reason: FOR PAIN OR TEMP Stop: 04/08/18 22:00 Last Admin: 03/13/18 21:13 Dose: 650 mg Acetylcysteine (Mucomist 20% Soln 800 Mg/4 Ml) 600 mg NEB RTBID PÉREZ Stop: 04/11/18 09:59 Last Admin: 03/14/18 08:20 Dose: 600 mg Albuterol (Ventolin 0.083% Neb 2.5 Mg/3 Ml Ampul) 2.5 mg NEB RTQ1HP PRN PRN Reason: SHORTNESS OF BREATH Stop: 04/09/18 12:06 Last Admin: 03/13/18 21:00 Dose: 2.5 mg Budesonide (Pulmicort Neb 0.5 Mg/2 Ml Ampul) 0.5 mg NEB RTQ12 [facility] Stop: 04/09/18 10:59 Last Admin: 03/14/18 08:20 Dose: 0.5 mg Heparin Sodium (Porcine) (Heparin Inj 5,000 Units/Ml 1 Ml Syringe) 5,000 unit SUBCUT Q8 [facility] Stop: 04/09/18 05:59 Last Admin: 03/14/18 13:51 Dose: 5,000 unit Hydralazine HCl (Apresoline Inj/Pf 20 Mg/1 Ml Sdv) 20 mg IV Q4A [facility] Stop: 04/12/18 15:59 Last Admin: 03/14/18 11:39 Dose: 20 mg Levofloxacin/Dextrose (Levaquin Rtu 750 Mg/D5w 150 Ml Premix) 750 mg in 150 mls @ 100 mls/hr IV QHS [facility] Stop: 03/17/18 21:59 Last Infusion: 03/14/18 00:00 Dose: Infused Propofol (Diprivan Rtu 1000 Mg/100 Ml Inf.Bottle) 1,000 mg in 100 mls @ 0 mls/ hr IV CONTINUOUS PRN; Protocol; Titrate PRN Reason: THIS MED IS NOT "PRN" Stop: 04/08/18 22:04 Last Admin: 03/14/18 13:51 Dose: 60 mcg/kg/min, 26.1 mls/hr Midazolam HCl (Versed Rtu 50 Mg/100 Ml Premix Bag) 50 mg in 100 mls @ 0 mls/hr IV CONTINUOUS PRN; Protocol; Titrate PRN Reason: THIS MED IS NOT "PRN" Stop: 03/17/18 09:31 Last Titration: 03/14/18 12:41 Dose: 10,000 mcg/hr, 20 mls/hr Thiamine HCl 100 mg/Multivitamins/Minerals 10 ml/Folic Acid 1 mg/ Sodium Chloride 1,011.2 mls @ 50 mls/hr IV QPM [facility] Stop: 04/09/18 17:59 Last Admin: 03/13/18 17:31 Dose: 50 mls/hr Potassium Chloride/Dextrose/Sod Cl (D5-1/2ns 1000 Ml/Kcl 20 Meq Premix Bag) 1, 000 mls @ 125 mls/hr IV CONTINUOUS PRN PRN Reason: THIS MED IS NOT "PRN" Stop: 04/09/18 12:03 Last Infusion: 03/14/18 06:00 Dose: 50 mls/hr Ertapenem 1 gm/ Sodium (Chloride) 50 mls @ 100 mls/hr IV DAILY@1600 [facility] Stop: 03/19/18 15:59 Last Infusion: 03/13/18 17:31 Dose: Infused Influenza Virus Vaccine Quadrival (Fluarix Adlt Quad Vac 0.5 Ml Syr) 0.5 ml IM .DISCHARGE PRN PRN Reason: THIS MED IS NOT "PRN" Stop: 04/10/18 16:44 Ipratropium [place] (Atrovent 0.02% Neb 0.5 Mg/2.5 Ml Ampul) 0.5 mg NEB RTQ8 [facility] Stop: 04/09/18 15:59 Last Admin: 03/14/18 08:20 Dose: 0.5 mg Levalbuterol HCl (Xopenex Neb 1.25 Mg/3 Ml Ampul) 1.25 mg NEB RTQ8 [facility] Stop: 04/09/18 15:59 Last Admin: 03/14/18 08:20 Dose: 1.25 mg Methylprednisolone Sodium Succinate (Solu-Medrol Inj/Pf 125 Mg/2 Ml Sdv) 60 mg IV Q8 [facility] Stop: 04/09/18 13:59 Last Admin: 03/14/18 13:51 Dose: 60 mg Metoprolol Tartrate (Lopressor Inj/Pf 5 Mg/5 Ml Sdv) 5 mg IV Q4A [facility] Stop: 04/10/18 15:59 Last Admin: 03/14/18 11:35 Dose: 5 mg Montelukast Sodium (Singulair 10 Mg Tablet) 10 mg NG QHS [facility] Stop: 04/09/18 21:59 Last Admin: 03/13/18 22:29 Dose: 10 mg Morphine Sulfate (Morphine 10 Mg/Ml Inj) 2 mg IV Q1HP PRN PRN Reason: FOR PAIN Stop: 03/18/18 15:11 Last Admin: 03/14/18 13:24 Dose: 2 mg Pantoprazole Sodium (Protonix Iv Inj 40 Mg Vial) 40 mg IV DAILY [facility] Stop: 03/16/18 09:59 Last Admin: 03/14/18 09:35 Dose: 40 mg Sodium Chloride (Saline Flush 2.5 Ml Monoject Prefil Syrin) 2.5 ml IV Q8 [facility] Stop: 04/09/18 05:59 Last Admin: 03/14/18 13:51 Dose: 2.5 ml - Allergies Allergies/Adverse Reactions: tramadol Allergy (Verified 09/08/17 13:08) - Diet/Activity Discharge Diet: Other (Comments) - N.p.o. on ventilatory assistance with endotracheal tube in position. Discharge Activity: Bedrest Hospital Course Hospital Course: ISABELLA ALBERTS is a 38 year old male who presented to the emergency room with a 3-day history of progressively worsening dyspnea despite taking 60 mg of prednisone that he had at home for use when he experiences an exacerbation of his asthma. Mr. Alberts has a past medical history of asthma, bronchitis, tobacco and polysubstance abuse. In the emergency room he was found to have acute respiratory decompensation and was rapidly intubated. He was subsequently started on Solu-Medrol, magnesium, albuterol by the emergency room provider. His ABG revealed a PCO2 of 70 and as he was maintained on the ventilator and transferred to the ICU for care by the hospitalist service. 03/10/18: Patient is unable to provide subjective input since he is sedated and on a ventilator. His examination reveals mild end expiratory wheezing and a minimally prolongated expiratory phase. He will be maintained on the ventilator for the rest the day at the direction of Dr. Goodson who is seeing the patient in consultation. Hopefully Mr. Alberts can be extubated tomorrow. 03/11/18: Isabella did not tolerate an attempt to wean him from assisted ventilatory support today. His blood gases were good with a normal pH, PO2 and PCO2. However once patient's ventilatory assistance was reduced he became very tachypneic and tachycardic and his ventilator support had to be reinstated to its previous level. Additional adjustments were made by Dr. Goodson and his blood gases will be rechecked in another attempt at withdrawing ventilatory support will be made again tomorrow if appropriate. Therefore Mr. Alberts is unable to participate in providing any subjective information as he is sedated and intubated. 03/12/18: Isabella his again been unable to tolerate weaning from ventilatory assistance. His blood gases today showed a drop in his PO2 and thus a CTA of the chest was performed which was negative for pulmonary embolus. I have personally reviewed these films and have observed a left posterior medial basilar lobar/segmental pneumonia to be present. Antibiotic therapy will be initiated in consultation with Dr. Goodson. Isabella continues to be sedated to the point where he is unable to participate in providing any subjective input. 03/13/18: The patient is again unable to tolerate weaning from ventilatory assistance. His blood gases were excellent with a pH of 7.43 a PCO2 of 44 and a PO2 of 80 but this required 60% oxygen to obtain that result. She has is for the patient to tolerate ventilatory withdrawal at that level are very poor. Patient was noted to have subcutaneous emphysema in his bilateral anterior neck (plane anterior to the platysmus muscles) today. On exam his wheezing is substantially reduced and his expiratory phase is substantially reduced. Again he is sedated and unable to provide subjective input into his care. 03/14/18: The patient was noted this morning to have a persistent right lateral lower lung loculated pneumothorax on his daily chest x-ray. His subcutaneous emphysema is significantly more prominent in the bilateral anterior neck. He was initially found with a loculated lower lung pneumothorax on the right about 5:00 PM last evening when he had a sudden change in his status. At that time he developed tachycardia, hypertension and severe restlessness. His sudden change resulted in the performance of a chest x-ray and arterial blood gases which demonstrated a 10 point decrease in his PO2 from his morning gases and a right lateral lower lung loculated pneumothorax. A chest x-ray was inserted by the general surgeon Dr. Alvaro Centeno and the patient was continued on ventilatory support. After after the chest x-ray was reported this morning a CT of the chest was done to evaluate the chest tube and to identify the area of the pneumothorax more clearly. The CT indicated that the chest tube was located within the parenchyma of the right upper lobe and the right lower lobe was completely collapsed. The patient's left lower lobe pneumonia was again noted. With these findings it was determined that the patient should be transferred to a facility offering a substantially higher level of care as he will require the fairly immediate services of a drop hammer mechanic for bronchoscopy to better evaluate his lobar collapse with pneumothorax formation on the right as well as a thoracic surgeon who may be required to repair the parenchymal leak in the right lower lobe as well as manage the chest tubes and other surgical interventions that may be required. To this end [facility] the accepting physician is Dr. Debbie Montiel MD. the patient will be transferred as soon as a bed is available. The ICU will be notified of bed availability and at that time nursing report can be given and the patient can be transferred. Physical Exam Vital Signs: Temp Pulse Resp BP Pulse Ox 99.0 F 95 24 H 123/72 95 03/14/18 14:00 03/14/18 08:00 03/14/18 14:00 03/14/18 13:57 03/14/18 14:00 Intake & Output 03/12/18 03/13/18 03/14/18 23:59 23:59 23:59 Intake Total 2112.2 4303.2 1059 Output Total 4250 4830 1625 Balance -2137.8 -526.8 -566 Weight 74 kg 72.5 kg 72.4 kg General appearance: PRESENT: other - Patient is sedated and endotracheally intubated for assisted mechanical ventilation. Head exam: PRESENT: atraumatic, normocephalic Eye exam: PRESENT: conjunctiva pink. ABSENT: conjunctival injection, periorbital swelling, scleral icterus Ear exam: PRESENT: normal external ear exam. ABSENT: bleeding, drainage Mouth exam: PRESENT: neck supple, other - Endotracheal tube affixed in good position. Neck exam: ABSENT: JVD, thyromegaly, tracheal deviation Respiratory exam: PRESENT: decreased breath sounds - Right lower lung padgett anteriorly and posteriorly, symmetrical, other - Endotracheally intubated for mechanical ventilation. Cardiovascular exam: PRESENT: RRR, tachycardia. ABSENT: clicks, gallop, rubs Pulses: PRESENT: normal carotid pulses, normal dorsalis pedis pul GI/Abdominal exam: PRESENT: normal bowel sounds, soft Rectal exam: PRESENT: deferred Extremities exam: ABSENT: joint swelling, pedal edema Musculoskeletal exam: ABSENT: deformity, dislocation Neurological exam: PRESENT: reflexes normal, other - Sedated for ventilation Psychiatric exam: PRESENT: other - Sedated for ventilation Skin exam: ABSENT: jaundice, rash, urticaria Results Laboratory Results: 03/14/18 03:48 03/14/18 03:48 03/13/18 03/14/18 03/14/18 17:40 00:00 03:48 WBC 12.1 H RBC 5.12 Hgb 13.6 Hct 41.0 MCV 80 MCH 26.5 L MCHC 33.1 RDW 15.8 H Plt Count 298 Seg Neutrophils % Not Reportable Lymphocytes % Not Reportable Monocytes % Not Reportable Eosinophils % Not Reportable Basophils % Not Reportable Absolute Neutrophils Not Reportable Absolute Lymphocytes Not Reportable Absolute Monocytes Not Reportable Absolute Eosinophils Not Reportable Absolute Basophils Not Reportable Carbonic Acid 1.29 1.15 HCO3/H2CO3 Ratio 23:1 23:1 ABG pH 7.46 H 7.47 H ABG pCO2 42.9 38.1 ABG pO2 60.6 L 79.5 L ABG HCO3 29.7 H 27.2 H ABG O2 Saturation 92.4 L 96.4 ABG Base Excess 5.2 3.6 FiO2 60% 80% Sodium Potassium Chloride Carbon Dioxide Anion Gap BUN Creatinine Est GFR ( Amer) Est GFR (Non-Af Amer) Glucose Calcium Magnesium 03/14/18 03/14/18 03:48 05:30 WBC RBC Hgb Hct MCV MCH MCHC RDW Plt Count Seg Neutrophils % Lymphocytes % Monocytes % Eosinophils % Basophils % Absolute Neutrophils Absolute Lymphocytes Absolute Monocytes Absolute Eosinophils Absolute Basophils Carbonic Acid 1.14 HCO3/H2CO3 Ratio 24:1 ABG pH 7.48 H ABG pCO2 38.0 ABG pO2 96.7 ABG HCO3 27.4 H ABG O2 Saturation 97.8 ABG Base Excess 3.8 FiO2 80% Sodium 139.4 Potassium 4.8 Chloride 104 Carbon Dioxide 23 Anion Gap 12 BUN 26 H Creatinine 0.80 Est GFR ( Amer) > 60 Est GFR (Non-Af Amer) > 60 Glucose 121 H Calcium 9.2 Magnesium 2.5 H 03/10/18 03/10/18 03/10/18 04:12 05:32 05:32 Creatine Kinase 304 H CK-MB (CK-2) 3.56 Troponin I < 0.012 NT-Pro-B Natriuret Pep 191 H 03/10/18 03/10/18 03/10/18 11:19 11:19 17:25 Creatine Kinase 272 H 239 H CK-MB (CK-2) 3.86 Troponin I < 0.012 NT-Pro-B Natriuret Pep 03/10/18 17:25 Creatine Kinase CK-MB (CK-2) 3.28 Troponin I < 0.012 NT-Pro-B Natriuret Pep Impressions: Chest/Abdomen CTA 03/12/18 09:15 IMPRESSION: No PE. Bilateral pneumonia. Chest CT 03/14/18 00:00 IMPRESSION: Right-sided chest tube courses through the right upper lobe parenchyma with tip between the SVC and right upper lobe pulmonary artery. Complete collapse right lower lobe Left lower lobe pneumonia Trace right apical and basilar pneumothorax. Extensive chest wall air. Results discussed with Dr. Centeno. Chest X-Ray 03/14/18 06:00 IMPRESSION: No significant change. Persistent right basilar pneumothorax despite chest tube present. Plan Discharge Plan: Patient will be transferred to [facility] in [place] as soon as an appropriate level of care bed is available. Time Spent: Greater than 30 Minutes
[2018-03-14] MEDS: ERTAPENEM SODIUM 1 GM in NORMAL SALINE 50 ML IV SCH (16:32)
[2018-03-14] MEDS: POTASSI CL 20 MEQ/D5-1/2NS 1L 1,000 ML IV PRN (17:32)
[2018-03-14] MEDS: NORMAL SALINE 1000 ML 1,000 ML with THIAMINE HCL 100 MG, MVI, ADULT NO.1 WITH VIT K 10 ... IV SCH ×4 (17:32)
[2018-03-14 18:10] VITALS: BP 143/80
== END 2018-03-14 18:45 | disposition short-term general hospital (02) | DRG 166 ==
LOC: ER 20:27 → EH 22:20 → ICU 23:33
PROVIDERS: ADMIT Internal Medicine; ATTEND Internal Medicine
PROC: 0BH17EZ Insertion of Endotracheal Airway into Trachea, Via Natural or Artificial Opening (ICD-10-PCS; 2018-03-09)
PROC: 5A1955Z Respiratory Ventilation, Greater than 96 Consecutive Hours (ICD-10-PCS; 2018-03-09)
PROC: 0B9K30Z Drainage of Right Lung with Drainage Device, Percutaneous Approach (ICD-10-PCS; principal; 2018-03-13)
DX: J96.01 Acute respiratory failure with hypoxia (principal); J18.9 Pneumonia, unspecified organism; J95.811 Postprocedural pneumothorax; J45.51 Severe persistent asthma with (acute) exacerbation; T81.82XA Emphysema (subcutaneous) resulting from a procedure, initial encounter; J96.02 Acute respiratory failure with hypercapnia; F31.9 Bipolar disorder, unspecified; F19.90 Other psychoactive substance use, unspecified, uncomplicated; R00.0 Tachycardia, unspecified; I10 Essential (primary) hypertension; F17.200 Nicotine dependence, unspecified, uncomplicated; Z86.14 Personal history of Methicillin resistant Staphylococcus aureus infection; Z82.49 Family history of ischemic heart disease and other diseases of the circulatory system; Z88.8 Allergy status to other drugs, medicaments and biological substances; Z78.1 Physical restraint status
CPT/HCPCS: 36415; 71045; 71250; 71275; 80048; 80053; 80307; 81001; 82550; 82553; 82803; 82962; 83735; 83880; 84443; 84478; 84484; 85025; 85027; 87070; 87205; 93005; 93010; 93306; 94002; 94003; 94640; 94668; 96361; 96374; 96375; 99291; J0330; J0360; J1335; J1644; J1956; J2060; J2250; J2270; J2704; J2930; J3010; J3411; J3480; J3490; J7030; J7620; S0164

== ENCOUNTER 2018-03-30 13:18 | Emergency (ER) | payer MEDICARE, MEDICAID ==
[2018-03-30 13:28] VITALS: BP 106/59
--- NOTE | 2018-03-30 14:14 | ER Document Report ---
ED Wound - General Chief Complaint: Suture Removal Stated Complaint: SUTURE REMOVAL Time Seen by Provider: 03/30/18 13:55 Mode of Arrival: Ambulatory Information source: Patient Notes: Patient presents to the ED for suture removal. Had chest tubes and ecmo placed 3 weeks ago in [place]. Needs remaining sutures removed. TRAVEL OUTSIDE OF THE [place] IN LAST 30 DAYS: No - HPI Patient complains to provider of: Other - suture removal. Occurred: Other - 3 weeks ago Quality of pain: No pain Severity: None Pain Level: Denies Skin Color: Normal Capillary refill: < 3 seconds Sensations intact: Yes Distal pulses present: Yes Associated Symptoms: None - Related Data Allergies/Adverse Reactions: tramadol Allergy (Verified 09/08/17 13:08) Past Medical History - General Information source: Patient - Social History Smoking Status: Never Smoker Frequency of alcohol use: None Drug Abuse: None Family History: Hypertension, Other - Unobtainable Patient has suicidal ideation: No Patient has homicidal ideation: No Pulmonary Medical History: Reports: Hx Asthma, Hx Bronchitis Denies: Hx COPD, Hx Pneumonia, Hx Intubation, Hx Respiratory Failure, Hx Sleep Apnea, Hx Tuberculosis Neurological Medical History: Denies: Hx Cerebrovascular Accident, Hx Migraine, Hx Seizures Endocrine Medical History: Denies: Hx Diabetes Mellitus Type 1, Hx Diabetes Mellitus Type 2, Hx Graves' Disease, Hx Hyperthyroidism, Hx Hypothyroidism Renal/ Medical History: Denies: Hx Peritoneal Dialysis Psychiatric Medical History: Reports: Hx Bipolar Disorder Infectious Medical History: Reports: Hx MRSA Past Surgical History: Reports: Hx Abdominal Surgery - umbilical hernia repair, Hx Orthopedic Surgery - R clavical; tibia - Immunizations Hx Diphtheria, Pertussis, Tetanus Vaccination: Yes Hx Pneumococcal Vaccination: 02/23/11 Review of Systems - Review of Systems Constitutional: No symptoms reported EENT: No symptoms reported Cardiovascular: No symptoms reported Respiratory: No symptoms reported Gastrointestinal: No symptoms reported Genitourinary: No symptoms reported Male Genitourinary: No symptoms reported Musculoskeletal: No symptoms reported Skin: No symptoms reported Hematologic/Lymphatic: No symptoms reported Neurological/Psychological: No symptoms reported -: Yes All other systems reviewed and negative Physical Exam - Vital signs Vitals: Temp Pulse Resp BP Pulse Ox 98.3 F 76 16 106/59 L 98 03/30/18 13:26 03/30/18 13:26 03/30/18 13:26 03/30/18 13:26 03/30/18 13:26 - Notes Notes: PHYSICAL EXAMINATION: GENERAL: Well-appearing, well-nourished and in no acute distress. HEAD: Atraumatic, normocephalic. EYES: Pupils equal round and reactive to light, extraocular movements intact, sclera anicteric, conjunctiva are normal. ENT: Nares patent, oropharynx clear without exudates. Moist mucous membranes. NECK: Normal range of motion, supple without lymphadenopathy LUNGS: Breath sounds clear to auscultation bilaterally and equal. No wheezes rales or rhonchi. HEART: Regular rate and rhythm without murmurs ABDOMEN: Soft, nontender, nondistended abdomen. No guarding, no rebound. No masses appreciated. Musculoskeletal: Normal range of motion, no pitting or edema. No cyanosis. NEUROLOGICAL: Cranial nerves grossly intact. Normal speech, normal gait. Normal sensory, motor exams PSYCH: Normal mood, normal affect. SKIN: Warm, Dry, normal turgor, no rashes or lesions noted. Sutures are in place. wounds are clean, dry, intact, without signs of infection. Course - Re-evaluation Re-evalutation: 03/30/18 14:13 Sutures removed from the right neck where echo male was done and the right lateral chest. No complications. No signs of infection. - Vital Signs Vital signs: Temp Pulse Resp BP Pulse Ox 98.3 F 76 16 106/59 L 98 03/30/18 13:26 03/30/18 13:26 03/30/18 13:26 03/30/18 13:26 03/30/18 13:26 Discharge - Discharge Clinical Impression: Visit for suture removal Condition: Good Disposition: HOME, SELF-CARE Instructions: Suture Removal Referrals: LORENZO VALE MD [ACTIVE STAFF] - Follow up as needed
== END 2018-03-30 14:17 | disposition home or self-care (01) ==
LOC: ER 13:18
DX: Z48.02 Encounter for removal of sutures (principal); J45.909 Unspecified asthma, uncomplicated; Z98.890 Other specified postprocedural states

== ENCOUNTER 2018-04-04 17:59 | Emergency (ER) | payer MEDICARE, MEDICAID ==
--- NOTE | 2018-04-04 18:24 | ER Document Report ---
ED Medical Screen (RME) - General Chief Complaint: Chest Pain Stated Complaint: CHEST PAIN Time Seen by Provider: 04/04/18 18:13 Notes: 38-year-old male asthmatic reports right-sided chest pain with swelling to his lower extremities today. His EKG is completely normal. His history is significant for seen here on 03/19/2018 with severe asthma, respiratory failure, intubation. Was transferred to [facility] and placed on ECMO for almost a week, had chest tubes placed for pneumothorax. He has never had peripheral edema before. He states his breathing is doing well today, he has used his inhaler twice. I have greeted and performed a rapid initial assessment of this patient. A comprehensive ED assessment and evaluation of the patient, analysis of test results and completion of the medical decision making process will be conducted by additional ED providers. TRAVEL OUTSIDE OF THE [place] IN LAST 30 DAYS: No - Related Data Allergies/Adverse Reactions: tramadol Allergy (Verified 04/04/18 17:59) Past Medical History - Social History Frequency of alcohol use: None Drug Abuse: None Pulmonary Medical History: Reports: Hx Asthma, Hx Bronchitis Denies: Hx COPD, Hx Pneumonia, Hx Intubation, Hx Respiratory Failure, Hx Sleep Apnea, Hx Tuberculosis Neurological Medical History: Denies: Hx Cerebrovascular Accident, Hx Migraine, Hx Seizures Endocrine Medical History: Denies: Hx Diabetes Mellitus Type 1, Hx Diabetes Mellitus Type 2, Hx Graves' Disease, Hx Hyperthyroidism, Hx Hypothyroidism Renal/ Medical History: Denies: Hx Peritoneal Dialysis Psychiatric Medical History: Reports: Hx Bipolar Disorder Infectious Medical History: Reports: Hx MRSA Past Surgical History: Reports: Hx Abdominal Surgery - umbilical hernia repair, Hx Orthopedic Surgery - R clavical; tibia - Immunizations Hx Diphtheria, Pertussis, Tetanus Vaccination: Yes History of Influenza Vaccine for 02/2017 - 07/2017 Season: No Physical Exam - Vital signs Vitals: Temp Pulse Resp BP Pulse Ox 98.3 F 69 16 128/77 H 96 04/04/18 18:02 04/04/18 18:02 04/04/18 18:02 04/04/18 18:02 04/04/18 18:02 Course - Vital Signs Vital signs: Temp Pulse Resp BP Pulse Ox 98.3 F 69 16 128/77 H 96 04/04/18 18:02 04/04/18 18:02 04/04/18 18:02 04/04/18 18:02 04/04/18 18:02
[2018-04-04 18:52] LABS: HEMATOCRIT 31.3 % (37.9-51.0); HEMOGLOBIN 10.2 g/dL (13.5-17.0); MEAN CORPUSCULAR HEMOGLOBIN 26.8 pg (27.0-33.4); MEAN CORPUSCULAR HGB CONC 32.5 g/dL (32.0-36.0); MEAN CORPUSCULAR VOLUME 82 fl (80-97); PLATELET COUNT 535 10^3/uL (150-450); RED CELL DISTRIBUTION WIDTH 17.6 % (11.5-14.0); WHITE BLOOD COUNT 6.2 10^3/uL (4.0-10.5)
[2018-04-04 19:05] LABS: ALANINE AMINOTRANSFERASE 25 U/L (21-72); ALBUMIN 4.2 g/dL (3.5-5.0); ALKALINE PHOSPHATASE 59 U/L (38-126); ANION GAP 11 (5-19); ASPARTATE AMINO TRANSFERASE 24 U/L (17-59); BILIRUBIN,DIRECT 0.3 mg/dL (0.0-0.4); BILIRUBIN,TOTAL 0.3 mg/dL (0.2-1.3); BLOOD UREA NITROGEN 9 mg/dL (7-20); CALCIUM 9.6 mg/dL (8.4-10.2); CARBON DIOXIDE 28 mmol/L (22-30); CHLORIDE 105 mmol/L (98-107); GLUCOSE 184 mg/dL (75-110); POTASSIUM 4.8 mmol/L (3.6-5.0); SODIUM 143.7 mmol/L (137-145); TOTAL PROTEIN 7.2 g/dL (6.3-8.2)
[2018-04-04 19:05] LABS: APPEARANCE,URINE CLEAR; BILIRUBIN,URINE NEGATIVE (NEGATIVE); COLOR,URINE YELLOW; GLUCOSE, URINE NEGATIVE (NEGATIVE); KETONES,URINE NEGATIVE (NEGATIVE); LEUKOCYTE ESTERASE,URINE NEGATIVE (NEGATIVE); NITRITE,URINE NEGATIVE (NEGATIVE); PROTEIN,URINE NEGATIVE (NEGATIVE); URINE SPECIFIC GRAVITY 1.014; UROBILINOGEN,URINE NEGATIVE mg/dL (<2.0)
[2018-04-04 19:13] LABS: ABSOLUTE LYMPHOCYTES# (MANUAL) 0.2 10^3/uL (0.5-4.7); ABSOLUTE MONOCYTES # (MANUAL) 0.1 10^3/uL (0.1-1.4); ANISOCYTOSIS 2+; BASOPHILS % (MANUAL) 0 % (0-2); EOSINOPHILS % (MANUAL) 0 % (0-6); HYPOCHROMASIA 2+; LYMPHOCYTES % (MANUAL) 3 % (13-45); MONOCYTES % (MANUAL) 1 % (3-13); OVALOCYTES 2+; PLATELET COMMENT INCREASED; POIKILOCYTOSIS 2+; POLYCHROMASIA SLIGHT; ROULEAUX 1+; SEGMENTED NEUTROPHILS % (MAN) 96 % (42-78); TEAR DROP CELLS SLIGHT; TOTAL CELLS COUNTED 100; TOXIC GRANULATION SLIGHT; TOXIC VACUOLATION PRESENT
[2018-04-04 19:14] LABS: HYPERSEGMENTED NEUTROPHILS PRESENT
--- NOTE | 2018-04-04 20:10 | RADIOLOGY REPORT (SQ) ---
EXAM DESCRIPTION: CHEST 2 VIEWS COMPLETED DATE/TIME: 04/04/2018 7:16 pm REASON FOR STUDY: Peripheral edema COMPARISON: 03/14/2018 and earlier EXAM PARAMETERS: NUMBER OF VIEWS: two views TECHNIQUE: Digital Frontal and Lateral radiographic views of the chest acquired. RADIATION DOSE: NA LIMITATIONS: none FINDINGS: LUNGS AND PLEURA: New small right pleural effusion with linear atelectasis. No left pleu ral effusion. No focal consolidation or pneumothorax. MEDIASTINUM AND HILAR STRUCTURES: No masses or contour abnormalities. HEART AND VASCULAR STRUCTURES: Heart normal size. No evidence for failure. BONES: No acute findings. HARDWARE: None in the chest. OTHER: No other significant finding. IMPRESSION: New small right pleural effusion. TECHNICAL DOCUMENTATION: JOB ID: [id number] [employer]- All Rights Reserved Reading location - IP/workstation name: [email or web address]
[2018-04-04] MEDS: MORPHINE SULFATE 10 MG/ML INJ IV PRN ×2 (20:41→23:29)
--- NOTE | 2018-04-04 20:53 | ER Document Report ---
ED General - General Chief Complaint: Chest Pain Stated Complaint: CHEST PAIN Time Seen by Provider: 04/04/18 18:13 Notes: Patient is a 38-year-old male with a past medical history of asthma, hospitalized in February for a severe asthma exacerbation requiring intubation, subsequent ventilator associated pneumothorax and pneumonia, transferred to [facility] where he ended up requiring ECMO, reports he was discharged approximately 2 weeks ago presents with 2 days of progressively worsening right- sided chest discomfort, mild shortness of breath, and increasing bilateral lower extremity edema. The patient reports that this started gradually and has been worsening since onset. States he denies any history of similar symptoms since being discharged. Nothing improves or worsens his symptoms. He has not contacted his doctor regarding today's concern. He denies fever or constitutional symptoms. No hemoptysis but he has had a nonproductive cough. TRAVEL OUTSIDE OF THE [place] IN LAST 30 DAYS: No - Related Data Allergies/Adverse Reactions: tramadol Allergy (Verified 04/04/18 17:59) Past Medical History - General Information source: Patient - Social History Smoking Status: Former Smoker Frequency of alcohol use: None Drug Abuse: None Lives with: Spouse/Significant other Family History: Hypertension, Other - Unobtainable Patient has suicidal ideation: No Patient has homicidal ideation: No Pulmonary Medical History: Reports: Hx Asthma, Hx Bronchitis Denies: Hx COPD, Hx Pneumonia, Hx Intubation, Hx Respiratory Failure, Hx Sleep Apnea, Hx Tuberculosis Neurological Medical History: Denies: Hx Cerebrovascular Accident, Hx Migraine, Hx Seizures Endocrine Medical History: Denies: Hx Diabetes Mellitus Type 1, Hx Diabetes Mellitus Type 2, Hx Graves' Disease, Hx Hyperthyroidism, Hx Hypothyroidism Renal/ Medical History: Denies: Hx Peritoneal Dialysis Psychiatric Medical History: Reports: Hx Bipolar Disorder Infectious Medical History: Reports: Hx MRSA Past Surgical History: Reports: Hx Abdominal Surgery - umbilical hernia repair, Hx Orthopedic Surgery - R clavical; tibia - Immunizations Hx Diphtheria, Pertussis, Tetanus Vaccination: Yes Hx Pneumococcal Vaccination: 02/23/11 Review of Systems - Review of Systems Notes: Constitutional: Negative for fever. HENT: Negative for sore throat. Eyes: Negative for visual changes. Cardiovascular: Positive for right-sided chest pain Respiratory: Positive for mild shortness of breath Gastrointestinal: Negative for abdominal pain, vomiting or diarrhea. Genitourinary: Negative for dysuria. Musculoskeletal: Positive for bilateral lower extremity edema Skin: Negative for rash. Neurological: Negative for headaches, weakness or numbness. 10 point ROS negative except as marked above and in HPI. Physical Exam - Vital signs Vitals: Temp Pulse Resp BP Pulse Ox 98.3 F 69 16 128/77 H 96 04/04/18 18:02 04/04/18 18:02 04/04/18 18:02 04/04/18 18:02 04/04/18 18:02 Interpretation: Normal Notes: PHYSICAL EXAMINATION: GENERAL: Well-appearing, well-nourished and in no acute distress. HEAD: Atraumatic, normocephalic. EYES: Pupils equal round and reactive to light, extraocular movements intact, sclera anicteric, conjunctiva are normal. ENT: nares patent, oropharynx clear without exudates. Moist mucous membranes. NECK: Normal range of motion, supple without lymphadenopathy LUNGS: Breath sounds diminished at the right base otherwise unremarkable lung examination. No wheezes rales or rhonchi. HEART: Regular rate and rhythm without murmurs ABDOMEN: Soft, nontender, normoactive bowel sounds. No guarding, no rebound. No masses appreciated. EXTREMITIES: Normal range of motion, 1+ pitting edema in the bilateral lower extremities that is equal and symmetric. NEUROLOGICAL: No focal neurological deficits. Moves all extremities spontaneously and on command. PSYCH: Normal mood, normal affect. SKIN: Warm, Dry, normal turgor, no rashes or lesions noted. Course - Re-evaluation Re-evalutation: 04/04/18 20:50 Patient presents with chronic right-sided chest wall pain although main concern is due to increasing bilateral lower extremity edema over the last 24 hours. The patient does state that he has right-sided chest pain that is chronic but seems to be somewhat worse in the last 24 hours. States worsened by moving and breathing. He is not tachycardic nor hypoxic. Chest x-ray does show a new pleural effusion on the right which could be residual from his previous chest tubes and pneumothoraces to the right side. However given his new onset bilateral lower extremity edema without any acute alternative etiology as well as worsening pain and recent hospitalization with prolonged period of immobilization patient is high risk for pulmonary embolus. Will obtain a CTA to clarify both the pleural effusion and to further exclude an acute pulmonary embolus. The remainder the patient's laboratories are otherwise completely unremarkable and do not suggest a volume overload picture to suggest a renal or liver dysfunction for the bilateral lower extremity edema. 04/04/18 23:06 Patient laboratories are effectively unremarkable although CT scan of the chest has a extraordinarily unusual read showing a loculated infusion on the right lower lobe as well as cavitary lesions and concern of possible sequelae of septic emboli. There is also concern for possible fungal infection. The patient does look remarkably well in this context, vitals are otherwise unremarkable although given this abnormal read the patient will require hospitalization on broad-spectrum antibiotics and antifungals as well as pulmonary consultation. 04/04/18 23:[address] Minaya who is advised that given that the patient is a loculated effusion he will require transfer to a center capable of performing a VATS procedure. I have contacted [facility] where the patient was previously hospitalized 04/05/18 00:[address] Valdez at [facility] who has accepted the patient for transfer. Patient is in agreement with transfer. 04/05/18 02:43 Patient remained stable, vitals including oxygenation within acceptable limits. Patient has received Zosyn, vancomycin and fluconazole. Awaiting transport. - Vital Signs Vital signs: Temp Pulse Resp BP Pulse Ox 98.7 F 52 L 16 149/77 H 97 04/05/18 02:22 04/05/18 01:26 04/04/18 18:02 04/05/18 01:01 04/05/18 01:01 - Laboratory Result Diagrams: 04/04/18 18:30 04/04/18 18:30 Laboratory results interpreted by me: 04/04/18 04/04/18 04/04/18 18:23 18:30 18:30 RBC 3.80 L Hgb 10.2 L Hct 31.3 L MCH 26.8 L RDW 17.6 H Plt Count 535 H Seg Neuts % (Manual) 96 H Lymphocytes % (Manual) 3 L Monocytes % (Manual) 1 L Abs Lymphs (Manual) 0.2 L Glucose 184 H NT-Pro-B Natriuret Pep Urine Ascorbic Acid 40 H 04/04/18 20:02 RBC Hgb Hct MCH RDW Plt Count Seg Neuts % (Manual) Lymphocytes % (Manual) Monocytes % (Manual) Abs Lymphs (Manual) Glucose NT-Pro-B Natriuret Pep 713 H Urine Ascorbic Acid - Diagnostic Test Radiology reviewed: Image reviewed, Reports reviewed Radiology results interpreted by me: 04/05/18 02:43 Chest x-ray: Right lower pleural effusion - EKG Interpretation by Me Additional EKG results interpreted by me: 04/05/18 02:43 Sinus rhythm. Rate 68. No ST elevations or depressions. QTC is 417. Discharge - Discharge Clinical Impression: Loculated pleural effusion, Chest wall pain, Bilateral lower extremity edema Condition: Fair Disposition: [facility]
[2018-04-04 21:38] LABS: CREATINE KINASE 131 U/L (55-170)
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
[2018-04-04] MEDS ORDERED: PIPERACILLIN/TAZOBACTAM 3.375 GM VIAL IV ONE (23:08)
[2018-04-04] MEDS ORDERED: FLUCONAZOLE 400 MG/NS RTU 400 MG/200 ML RTUPB IV ONE (23:09)
[2018-04-05] MEDS ORDERED: VANCOMYCIN HCL INJ 1000 MG VIAL IV ONE ×2 (02:42→19:22)
[2018-04-05] MEDS: MORPHINE SULFATE 10 MG/ML INJ IV PRN ×6 (03:11→21:23)
[2018-04-05] MEDS: PIPERACILLIN/TAZOBACTAM 3.375 GM VIAL IV SCH ×3 (07:00→19:36)
--- NOTE | 2018-04-05 09:58 | EKG REPORT ---
SEVERITY:- NORMAL ECG - SINUS RHYTHM : Confirmed by: Corona Sadler MD 05-Apr-2018 09:57:45
[2018-04-05] MEDS ORDERED: FLUCONAZOLE 200 MG/NS RTU 200 MG/100 ML RTUPB IV ONE (19:23)
[2018-04-05 19:27] LABS: ABSOLUTE LYMPHOCYTES (AUTO) 1.4 10^3/uL (0.5-4.7); ABSOLUTE MONOCYTES (AUTO) 0.4 10^3/uL (0.1-1.4); ABSOLUTE NEUT (AUTO) 4.5 10^3/uL (1.7-8.2); BASOPHILS % (AUTO) 0.4 % (0-2); EOSINOPHILS % (AUTO) 0.2 % (0-6); HEMOGLOBIN 9.3 g/dL (13.5-17.0); LYMPHOCYTES % (AUTO) 21.8 % (13-45); MEAN CORPUSCULAR HEMOGLOBIN 27.2 pg (27.0-33.4); MEAN CORPUSCULAR HGB CONC 33.1 g/dL (32.0-36.0); MEAN CORPUSCULAR VOLUME 82 fl (80-97); MONOCYTES % (AUTO) 6.1 % (3-13); PLATELET COUNT 425 10^3/uL (150-450); RED BLOOD COUNT 3.42 10^6/uL (4.35-5.55); RED CELL DISTRIBUTION WIDTH 17.4 % (11.5-14.0); SEGMENTED NEUTROPHILS % (AUTO) 71.5 % (42-78); TOTAL CELLS COUNTED % (AUTO) 100 %; WHITE BLOOD COUNT 6.3 10^3/uL (4.0-10.5)
[2018-04-05 19:39] LABS: ANION GAP 9 (5-19); BLOOD UREA NITROGEN 10 mg/dL (7-20); CALCIUM 8.7 mg/dL (8.4-10.2); CARBON DIOXIDE 29 mmol/L (22-30); CHLORIDE 106 mmol/L (98-107); GLUCOSE 92 mg/dL (75-110); POTASSIUM 3.8 mmol/L (3.6-5.0); SODIUM 144.2 mmol/L (137-145)
[2018-04-05] MEDS ORDERED: LORAZEPAM 1 MG TABLET PO ONE (20:00)
[2018-04-05 23:17] VITALS: BP 150/89
[2018-04-06 15:22] LABS: PATH REVIEW PATHOLOGIST REVIEWED
== END 2018-04-05 23:19 | disposition short-term general hospital (02) ==
LOC: ER 17:59
DX: J90 Pleural effusion, not elsewhere classified (principal); R60.9 Edema, unspecified; R07.9 Chest pain, unspecified; Z86.14 Personal history of Methicillin resistant Staphylococcus aureus infection
CPT/HCPCS: 93005; 99285; 96375; 96365; 96366; 96367; 36415; 87040; 82550; 83735; 85025; 80048; 80053; 81001; 84484; 83880; 71046; 71275; 93010; J3490; J2270 ×2; A9270; J1450; J3370; J2543 ×2

== ENCOUNTER 2018-05-02 14:09 | Emergency (ER) | payer MEDICARE, MEDICAID ==
[2018-05-02 14:15] VITALS: BP 147/78
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
--- NOTE | 2018-05-02 15:29 | RADIOLOGY REPORT (SQ) ---
EXAM DESCRIPTION: CHEST 2 VIEWS COMPLETED DATE/TIME: 05/02/2018 3:14 pm REASON FOR STUDY: Hx pleural effusion, now having same symptoms, SOB COMPARISON: 04/04/2018 EXAM PARAMETERS: NUMBER OF VIEWS: two views TECHNIQUE: Digital Frontal and Lateral radiographic views of the chest acquired. RADIATION DOSE: NA LIMITATIONS: none FINDINGS: LUNGS AND PLEURA: Interval decrease in volume of a previously seen right pleural effusion, with a small persistent volume of fluid and persistent atelectasis or scarring of the right lung. MEDIASTINUM AND HILAR STRUCTURES: No masses or contour abnormalities. HEART AND VASCULAR STRUCTURES: Heart normal size. No evidence for failure. BONES: No acute findings. HARDWARE: None in the chest. OTHER: No other significant finding. IMPRESSION: Interval decrease in volume of a previously seen right pleural effusion, with a small pe rsistent volume of fluid and persistent atelectasis or scarring of the right lung. TECHNICAL DOCUMENTATION: JOB ID: [id number] [facility]- All Rights Reserved Reading location - IP/workstation name: [email or web address]
[2018-05-02 15:42] LABS: ABSOLUTE LYMPHOCYTES (AUTO) 1.3 10^3/uL (0.5-4.7); ABSOLUTE MONOCYTES (AUTO) 0.5 10^3/uL (0.1-1.4); ABSOLUTE NEUT (AUTO) 3.6 10^3/uL (1.7-8.2); BASOPHILS % (AUTO) 0.5 % (0-2); HEMOGLOBIN 9.9 g/dL (13.5-17.0); LYMPHOCYTES % (AUTO) 23.4 % (13-45); MEAN CORPUSCULAR HEMOGLOBIN 26.6 pg (27.0-33.4); MEAN CORPUSCULAR HGB CONC 32.9 g/dL (32.0-36.0); MEAN CORPUSCULAR VOLUME 81 fl (80-97); MONOCYTES % (AUTO) 9.3 % (3-13); PLATELET COUNT 263 10^3/uL (150-450); RED BLOOD COUNT 3.71 10^6/uL (4.35-5.55); RED CELL DISTRIBUTION WIDTH 17.3 % (11.5-14.0); SEGMENTED NEUTROPHILS % (AUTO) 66.8 % (42-78); TOTAL CELLS COUNTED % (AUTO) 100 %; WHITE BLOOD COUNT 5.4 10^3/uL (4.0-10.5)
[2018-05-02 15:49] LABS: APPEARANCE,URINE SLIGHTLY-CLOUDY; BILIRUBIN,URINE NEGATIVE (NEGATIVE); COLOR,URINE YELLOW; GLUCOSE, URINE NEGATIVE (NEGATIVE); KETONES,URINE NEGATIVE (NEGATIVE); LEUKOCYTE ESTERASE,URINE NEGATIVE (NEGATIVE); NITRITE,URINE NEGATIVE (NEGATIVE); PROTEIN,URINE NEGATIVE (NEGATIVE); URINE SPECIFIC GRAVITY 1.019; UROBILINOGEN,URINE NEGATIVE mg/dL (<2.0)
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
[2018-05-02 16:08] LABS: ALANINE AMINOTRANSFERASE 14 U/L (21-72); ALBUMIN 4.1 g/dL (3.5-5.0); ALKALINE PHOSPHATASE 53 U/L (38-126); ANION GAP 12 (5-19); ASPARTATE AMINO TRANSFERASE 23 U/L (17-59); BILIRUBIN,DIRECT 0.2 mg/dL (0.0-0.4); BILIRUBIN,TOTAL 0.3 mg/dL (0.2-1.3); BLOOD UREA NITROGEN 12 mg/dL (7-20); CALCIUM 8.9 mg/dL (8.4-10.2); CARBON DIOXIDE 30 mmol/L (22-30); CHLORIDE 105 mmol/L (98-107); GLUCOSE 86 mg/dL (75-110); POTASSIUM 3.7 mmol/L (3.6-5.0); TOTAL PROTEIN 6.6 g/dL (6.3-8.2)
== END 2018-05-02 17:10 | disposition home or self-care (01) ==
LOC: ER 14:09
DX: R10.9 Unspecified abdominal pain (principal); J90 Pleural effusion, not elsewhere classified; J45.909 Unspecified asthma, uncomplicated; Z98.890 Other specified postprocedural states; Z87.891 Personal history of nicotine dependence
CPT/HCPCS: 36415; 71046; 80053; 81001; 85025; 99284

== ENCOUNTER 2018-06-16 07:45 | Emergency (ER) | payer MEDICARE, MEDICAID ==
[2018-06-16] MEDS ORDERED: METHYLPREDNISOLONE INJ 125 MG/2 ML SDV IV ONE (08:45)
[2018-06-16] MEDS ORDERED: IPRATROPIUM/ALBUTEROL 0.5-2.5 MG/3 ML AMPUL NEB ONE (08:45)
[2018-06-16] MEDS ORDERED: MAGNESIUM SULFATE/D5W 1 GM/100 ML RTUPB IV PRN ×2 (08:46)
--- NOTE | 2018-06-16 08:49 | ER Document Report ---
ED General - General Chief Complaint: Cold Symptoms Stated Complaint: DIFFICULTY BREATHING Time Seen by Provider: 06/16/18 08:39 TRAVEL OUTSIDE OF THE [place] IN LAST 30 DAYS: No - HPI Notes: Patient is a 38-year-old male with a history of asthma who presents the emergency department complaining of asthma exacerbation over the last few days. Patient states that he has had a dry semi-productive cough with associated wheezing. Patient states that he does not feel short of breath or have chest pain, but does feel some tightness which is normal for him during the asthma exacerbation. He is otherwise eating and drinking without difficulty. He is urinating normally and having normal. Patient has been doing DuoNeb treatments and he did take 1 dose of prednisone about a day and a half ago. Patient states that he has been intubated a few months ago because of the severe asthma exacerbation. Patient states that he does not feel as bad as he did when he needed intubated. No other concerns or complaints. Denies any headache, fever, neck pain, URI, sore throat, chest pain, palpitations, syncope, abdominal pain, nausea/vomiting/diarrhea, urinary retention, dysuria, hematuria, back pain, or rash. - Related Data Allergies/Adverse Reactions: tramadol Allergy (Verified 06/16/18 07:47) Past Medical History - Social History Smoking Status: Never Smoker Family History: Hypertension, Other - Unobtainable Pulmonary Medical History: Reports: Hx Asthma, Hx Bronchitis Denies: Hx COPD, Hx Pneumonia, Hx Intubation, Hx Respiratory Failure, Hx Sleep Apnea, Hx Tuberculosis Neurological Medical History: Denies: Hx Cerebrovascular Accident, Hx Migraine, Hx Seizures Endocrine Medical History: Denies: Hx Diabetes Mellitus Type 1, Hx Diabetes Mellitus Type 2, Hx Graves' Disease, Hx Hyperthyroidism, Hx Hypothyroidism Renal/ Medical History: Denies: Hx Peritoneal Dialysis Psychiatric Medical History: Reports: Hx Bipolar Disorder Infectious Medical History: Reports: Hx MRSA Past Surgical History: Reports: Hx Abdominal Surgery - umbilical hernia repair, Hx Orthopedic Surgery - R clavical; tibia - Immunizations Hx Diphtheria, Pertussis, Tetanus Vaccination: Yes Hx Pneumococcal Vaccination: 02/23/11 Review of Systems - Review of Systems -: Yes All other systems reviewed and negative Physical Exam - Vital signs Vitals: Temp Pulse Resp BP Pulse Ox 98.2 F 81 24 H 137/88 H 96 06/16/18 07:55 06/16/18 07:55 06/16/18 07:55 06/16/18 07:55 06/16/18 07:55 - Notes Notes: PHYSICAL EXAMINATION: GENERAL: Well-appearing, well-nourished and in no acute distress. A&Ox4. Answers questions appropriately. Moves comfortably w/o notable distress HEAD: Atraumatic, normocephalic. EYES: Pupils equal round and reactive to light, extraocular movements intact, sclera anicteric, conjunctiva are normal. ENT: EAC clear b/l. TM's intact b/l without erythema, fluid, or perforation. Nares patent and without discharge. oropharynx no erythema without exudates. No tonsilar hypertrophy without erythema or exudate. No palatine shift. Uvula midline. No tongue protrusion. No drooling, hoarseness, or airway compromise. Moist mucous membranes. No sinus tenderness. NECK: Normal range of motion, supple without lymphadenopathy. No rigidity/meningismus. LUNGS: Wheezing throughout. No retractions HEART: Regular rate and rhythm without murmurs, rubs, gallops. ABDOMEN: Soft, nontender, nondistended abdomen. No guarding, no rebound. No masses appreciated. Normal bowel sounds present. No CVA tenderness bilaterally. NEUROLOGICAL: Normal speech, normal gait. Normal sensory, motor exams PSYCH: Normal mood, normal affect. SKIN: Warm, Dry, normal turgor, no rashes or lesions noted. Course - Re-evaluation Re-evalutation: 06/16/18 10:46 Patient is an afebrile, well-hydrated, 38-year-old male who presents with an asthma exacerbation. Vitals are acceptable without significant tachycardia, tachypnea, or hypoxia. PE is otherwise unremarkable. Patient is nontoxic- appearing and is tolerating p.o. without difficulty. Chest x-ray was unremarkable. Lab work also unremarkable. Patient has received steroids, magnesium, and breathing treatments.. His lungs are now clear to auscultation bilaterally. Patient states he is feeling much better. Patient states that he does have an inhaler at home. No other labs or imaging warranted. Low suspici on for any ACS, PE, pneumothorax, pericarditis, dissection, respiratory compromise, severe dehydration, sepsis, meningitis, or other systemic emergent condition at this time. Patient is aware that this condition can change from initial presentation and he needs to monitor symptoms closely and seek medical attention for any acute changes. I will send him home with a prednisone taper. Recommend conservative measures for symptoms. Recheck with your PCM in 3-5 days. Return to the ED with any worsening/concerning symptoms otherwise as reviewed in discharge. Patient is in agreement. - Vital Signs Vital signs: Temp Pulse Resp BP Pulse Ox 98.2 F 81 13 134/69 H 98 06/16/18 07:55 06/16/18 07:55 06/16/18 10:01 06/16/18 10:01 06/16/18 10:01 - Laboratory Result Diagrams: 06/16/18 08:37 06/16/18 08:37 Laboratory results interpreted by me: 06/16/18 06/16/18 08:37 08:37 Hgb 11.6 L Hct 35.7 L MCV 79 L MCH 25.7 L RDW 16.3 H BUN 21 H Glucose 139 H ALT 16 L Discharge - Discharge Clinical Impression: Asthma exacerbation Qualifiers: Asthma severity: mild Asthma persistence: intermittent Qualified Code(s): J45.21 - Mild intermittent asthma with (acute) exacerbation Condition: Stable Disposition: HOME, SELF-CARE Instructions: Asthma ([facility]) Additional Instructions: Your chest XR was okay without any pneumonia or fluid. Maintain adequate fluid intake Take meds as directed tylenol/ibuprofen as needed Use inhaler as directed/needed over the counter cold medication as needed for symptoms Humidified air may help Wash your hands regularly Wear a mask when coughing F/u: with your PCM in 3-5 days for a recheck Return to the ED with any fever, worsening pain, chest pain, palpitations, syncope, worsening JOHN, neck pain/stiffness, shortness of breath, wheezing, drooling, trouble swallowing/breathing, abdominal pain, n/v/d, rash, or worsening/concerning symptoms otherwise. Prescriptions: Prednisone [Deltasone 10 mg Tablet] 10 mg PO DAILY #18 tablet Forms: Elevated Blood Pressure Referrals: NORIS SANTILLAN MD [ACTIVE STAFF] - Follow up as needed
--- NOTE | 2018-06-16 08:55 | RADIOLOGY REPORT (SQ) ---
EXAM DESCRIPTION: CHEST 2 VIEWS COMPLETED DATE/TIME: 06/16/2018 8:42 am REASON FOR STUDY: asthma COMPARISON: 05/22/2018 EXAM PARAMETERS: NUMBER OF VIEWS: two views TECHNIQUE: Digital Frontal and Lateral radiographic views of the chest acquired. RADIATION DOSE: NA LIMITATIONS: none FINDINGS: LUNGS AND PLEURA: Interval resolution of the patchy parenchymal opacities in the right brittany ng. Minimal scarring is again noted. Very small right pleural effusion has resolved. No acute pul monary consolidation in the lungs. Mild hyperinflation of the lungs and flattening of the diaphragms . No pneumothorax. MEDIASTINUM AND HILAR STRUCTURES: No masses or contour abnormalities. HEART AND VASCULAR STRUCTURES: Heart normal size. No evidence for failure. BONES: No acute findings. HARDWARE: None in the chest. OTHER: No other significant finding. IMPRESSION: 1. Interval resolution of the patchy opacities in the right lung. Minimal scarring is again noted. 2. Mild hyperinflation and flattening of the diaphragms, stable findings. No acute pulmonary consol idation. 3. Resolution of the very small right pleural effusion. TECHNICAL DOCUMENTATION: JOB ID: [id number] [employer]- All Rights Reserved Reading location - IP/workstation name: [email or web address]
[2018-06-16 08:57] LABS: ABSOLUTE BASOPHILS # (AUTO) 0.1 10^3/uL (0.0-0.2); ABSOLUTE LYMPHOCYTES (AUTO) 1.5 10^3/uL (0.5-4.7); ABSOLUTE MONOCYTES (AUTO) 0.6 10^3/uL (0.1-1.4); ABSOLUTE NEUT (AUTO) 5.8 10^3/uL (1.7-8.2); BASOPHILS % (AUTO) 0.9 % (0-2); EOSINOPHILS % (AUTO) 0.4 % (0-6); HEMATOCRIT 35.7 % (37.9-51.0); HEMOGLOBIN 11.6 g/dL (13.5-17.0); LYMPHOCYTES % (AUTO) 19.1 % (13-45); MEAN CORPUSCULAR HEMOGLOBIN 25.7 pg (27.0-33.4); MEAN CORPUSCULAR HGB CONC 32.6 g/dL (32.0-36.0); MEAN CORPUSCULAR VOLUME 79 fl (80-97); MONOCYTES % (AUTO) 6.9 % (3-13); PLATELET COUNT 344 10^3/uL (150-450); RED BLOOD COUNT 4.53 10^6/uL (4.35-5.55); RED CELL DISTRIBUTION WIDTH 16.3 % (11.5-14.0); SEGMENTED NEUTROPHILS % (AUTO) 72.7 % (42-78); TOTAL CELLS COUNTED % (AUTO) 100 %
[2018-06-16 09:22] LABS: ALANINE AMINOTRANSFERASE 16 U/L (21-72); ALBUMIN 4.3 g/dL (3.5-5.0); ALKALINE PHOSPHATASE 59 U/L (38-126); ANION GAP 7 (5-19); ASPARTATE AMINO TRANSFERASE 18 U/L (17-59); BILIRUBIN,DIRECT 0.3 mg/dL (0.0-0.4); BILIRUBIN,TOTAL 0.3 mg/dL (0.2-1.3); BLOOD UREA NITROGEN 21 mg/dL (7-20); CALCIUM 9.2 mg/dL (8.4-10.2); CARBON DIOXIDE 27 mmol/L (22-30); CHLORIDE 106 mmol/L (98-107); GLUCOSE 139 mg/dL (75-110); SODIUM 140.4 mmol/L (137-145); TOTAL PROTEIN 7.1 g/dL (6.3-8.2)
[2018-06-16] MEDS ORDERED: KETOROLAC TROMETHAMINE INJ/PF 30 MG/1 ML SDV IV ONE (10:43)
[2018-06-16] MEDS ORDERED: MORPHINE SULFATE 10 MG/ML INJ IV ONE (10:43)
[2018-06-16 11:02] VITALS: BP 128/77
== END 2018-06-16 11:14 | disposition home or self-care (01) ==
LOC: ER 07:45
DX: J45.21 Mild intermittent asthma with (acute) exacerbation (principal); Z86.14 Personal history of Methicillin resistant Staphylococcus aureus infection
CPT/HCPCS: 94640; 99285; 96375; 96365; 36415; 85025; 80053; 71046; J2930; J1885; J2270; J3475; A9270; J7620

== ENCOUNTER 2018-07-04 15:38 | Emergency (ER) | payer MEDICARE, MEDICAID ==
[2018-07-04] MEDS ORDERED: METHYLPREDNISOLONE INJ 125 MG/2 ML SDV IV ONE (15:58)
[2018-07-04] MEDS ORDERED: IPRATROPIUM/ALBUTEROL 0.5-2.5 MG/3 ML AMPUL NEB ONE ×2 (15:58→16:11)
--- NOTE | 2018-07-04 16:01 | ER Document Report ---
ED Medical Screen (RME) - General Chief Complaint: Asthma Exacerbation Stated Complaint: SHORTNESS OF BREATH Time Seen by Provider: 07/04/18 15:52 Mode of Arrival: Ambulatory Information source: Patient Notes: 38-year-old male with a history of asthma presents emergency department with complaints of wheezing and difficulty breathing that has been getting progressively worse over the last couple of days. He states that he is coughing up thick phlegm. He has been using his inhalers with minimal relief of treatment. Patient states that he has a history of a right-sided collapsed lung. I have greeted and performed a rapid initial assessment of this patient. A comprehensive ED assessment and evaluation of the patient, analysis of test results and completion of the medical decision making process will be conducted by additional ED providers. PHYSICAL EXAMINATION: GENERAL: Well-appearing, well-nourished and in no acute distress. HEAD: Atraumatic, normocephalic. EYES: Pupils equal round extraocular movements intact, conjunctiva are normal. ENT: Nares patent NECK: Normal range of motion LUNGS: Diffuse wheezing. No respiratory distress. Musculoskeletal: Normal range of motion NEUROLOGICAL: Normal speech, normal gait. PSYCH: Normal mood, normal affect. SKIN: Warm, Dry, normal turgor, no rashes or lesions noted. TRAVEL OUTSIDE OF THE [place] IN LAST 30 DAYS: No - Related Data Allergies/Adverse Reactions: tramadol Allergy (Verified 07/04/18 15:40) Past Medical History Pulmonary Medical History: Reports: Hx Asthma, Hx Bronchitis Denies: Hx COPD, Hx Pneumonia, Hx Intubation, Hx Respiratory Failure, Hx Sleep Apnea, Hx Tuberculosis Neurological Medical History: Denies: Hx Cerebrovascular Accident, Hx Migraine, Hx Seizures Endocrine Medical History: Denies: Hx Diabetes Mellitus Type 1, Hx Diabetes Raissa litus Type 2, Hx Graves' Disease, Hx Hyperthyroidism, Hx Hypothyroidism Renal/ Medical History: Denies: Hx Peritoneal Dialysis Psychiatric Medical History: Reports: Hx Bipolar Disorder Infectious Medical History: Reports: Hx MRSA Past Surgical History: Reports: Hx Abdominal Surgery - umbilical hernia repair, Hx Orthopedic Surgery - R clavical; tibia - Immunizations Hx Diphtheria, Pertussis, Tetanus Vaccination: Yes History of Influenza Vaccine for 02/2017 - 07/2017 Season: No Physical Exam - Vital signs Vitals: Temp Pulse Resp BP Pulse Ox 97.6 F 90 26 H 136/92 H 96 07/04/18 15:43 07/04/18 15:43 07/04/18 15:43 07/04/18 15:43 07/04/18 15:43 Course - Vital Signs Vital signs: Temp Pulse Resp BP Pulse Ox 97.6 F 90 26 H 136/92 H 96 07/04/18 15:43 07/04/18 15:43 07/04/18 15:43 07/04/18 15:43 07/04/18 15:43
[2018-07-04] MEDS ORDERED: NORMAL SALINE 1000 ML 1,000 ML IV ONE (16:11)
[2018-07-04 16:18] LABS: ABSOLUTE BASOPHILS # (AUTO) 0.1 10^3/uL (0.0-0.2); ABSOLUTE LYMPHOCYTES (AUTO) 1.1 10^3/uL (0.5-4.7); ABSOLUTE MONOCYTES (AUTO) 0.7 10^3/uL (0.1-1.4); ABSOLUTE NEUT (AUTO) 2.4 10^3/uL (1.7-8.2); BASOPHILS % (AUTO) 1.4 % (0-2); EOSINOPHILS % (AUTO) 0.8 % (0-6); HEMATOCRIT 34.1 % (37.9-51.0); HEMOGLOBIN 11.2 g/dL (13.5-17.0); LYMPHOCYTES % (AUTO) 26.9 % (13-45); MEAN CORPUSCULAR HEMOGLOBIN 25.5 pg (27.0-33.4); MEAN CORPUSCULAR HGB CONC 32.7 g/dL (32.0-36.0); MEAN CORPUSCULAR VOLUME 78 fl (80-97); MONOCYTES % (AUTO) 15.4 % (3-13); PLATELET COUNT 272 10^3/uL (150-450); RED BLOOD COUNT 4.37 10^6/uL (4.35-5.55); RED CELL DISTRIBUTION WIDTH 16.7 % (11.5-14.0); SEGMENTED NEUTROPHILS % (AUTO) 55.5 % (42-78); TOTAL CELLS COUNTED % (AUTO) 100 %; WHITE BLOOD COUNT 4.2 10^3/uL (4.0-10.5)
[2018-07-04] MEDS: MAGNESIUM SULFATE/D5W 1 GM/100 ML RTUPB IV SCH ×2 (16:21→16:45)
[2018-07-04 16:40] LABS: ALANINE AMINOTRANSFERASE 13 U/L (21-72); ALBUMIN 4.5 g/dL (3.5-5.0); ALKALINE PHOSPHATASE 61 U/L (38-126); ANION GAP 7 (5-19); ASPARTATE AMINO TRANSFERASE 28 U/L (17-59); BILIRUBIN,DIRECT 0.3 mg/dL (0.0-0.4); BILIRUBIN,TOTAL 0.4 mg/dL (0.2-1.3); BLOOD UREA NITROGEN 24 mg/dL (7-20); CALCIUM 8.7 mg/dL (8.4-10.2); CARBON DIOXIDE 31 mmol/L (22-30); CHLORIDE 106 mmol/L (98-107); GLUCOSE 82 mg/dL (75-110); POTASSIUM 4.4 mmol/L (3.6-5.0); SODIUM 144.1 mmol/L (137-145); TOTAL PROTEIN 7.7 g/dL (6.3-8.2)
[2018-07-04] MEDS ORDERED: ALBUTEROL SULFATE 0.083% NEB 2.5 MG/3 ML AMPUL NEB ONE (17:18)
--- NOTE | 2018-07-04 17:41 | RADIOLOGY REPORT (SQ) ---
EXAM DESCRIPTION: CHEST 2 VIEWS COMPLETED DATE/TIME: 07/04/2018 5:28 pm REASON FOR STUDY: cough, wheezing. COMPARISON: 06/16/2018 TECHNIQUE: Frontal and lateral radiographic views of the chest acquired. NUMBER OF VIEWS: Two view. LIMITATIONS: None. FINDINGS: LUNGS AND PLEURA: No pneumothorax. No consolidation or pleural effusion. MEDIASTINUM AND HILAR STRUCTURES: Stable. HEART AND VASCULAR STRUCTURES: Stable. BONES: No acute findings. HARDWARE: None in the chest. OTHER: No other significant finding. IMPRESSION: NO ACUTE FINDINGS. TECHNICAL DOCUMENTATION: JOB ID: [id number] [employer]- All Rights Reserved Reading location - IP/workstation name: [email or web address]
[2018-07-04 18:27] LABS: A TYPE INFLUENZA AG NEGATIVE (NEGATIVE); B INFLUENZA AG NEGATIVE (NEGATIVE)
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
[2018-07-04 19:12] VITALS: BP 148/98
== END 2018-07-04 19:12 | disposition home or self-care (01) ==
LOC: ER 15:38
DX: J45.901 Unspecified asthma with (acute) exacerbation (principal); J01.10 Acute frontal sinusitis, unspecified; R06.02 Shortness of breath; R05 Cough; R09.81 Nasal congestion; R52 Pain, unspecified; Z79.899 Other long term (current) drug therapy
CPT/HCPCS: 94640 ×2; 99285; 96361; 96375; 96365; 36415; 85025; 80053; 87804; 71046; J2930; J3475; J7030; A9270 ×2; J7620

== ENCOUNTER 2018-10-25 23:59 | Emergency (ER) | payer MEDICARE, MEDICAID ==
[2018-10-26] MEDS ORDERED: ALBUTEROL SULFATE 0.083% NEB 2.5 MG/3 ML AMPUL NEB ONE ×3 (00:04→01:37)
[2018-10-26] MEDS ORDERED: MAGNESIUM SULFATE/D5W 2 GM/200 ML RTUPB IV ONE (00:04)
[2018-10-26] MEDS ORDERED: IPRATROPIUM/ALBUTEROL 0.5-2.5 MG/3 ML AMPUL NEB ONE ×2 (00:06→00:19)
[2018-10-26] MEDS ORDERED: METHYLPREDNISOLONE INJ 125 MG/2 ML SDV IV ONE (00:12)
[2018-10-26] MEDS: MAGNESIUM SULFATE/D5W 1 GM/100 ML RTUPB IV SCH ×2 (00:16→00:25)
[2018-10-26 00:19] LABS: ABSOLUTE BASOPHILS # (AUTO) 0.1 10^3/uL (0.0-0.2); TOTAL CELLS COUNTED % (AUTO) 100 %
[2018-10-26] MEDS ORDERED: RINGERS SOLUTION,LACTATED 1,000 ML IV ONE (00:19)
--- NOTE | 2018-10-26 00:21 | ER Document Report ---
ED General - General Chief Complaint: Asthma Exacerbation Stated Complaint: DIFFICULTY BREATHING Time Seen by Provider: 10/26/18 00:12 Primary Care Provider: WILBERTO KNOX MD [Primary Care Provider] - Follow up as needed Notes: Patient is a 38-year-old male with a past medical history of asthma that has required intubation in the past who presents with severe shortness of breath, cough, worsening over the last 4 to 5 days. Patient states that his symptoms started gradually, progressively worsened since onset. States that he feels like it is worsened by being outdoors and humidity. States that he has been out working in the [employer] for an extended period of time for the past several days and believes this may have triggered his exacerbation. Has been trying inhalers at home including Combivent, albuterol, and Advair with no significant improvement. Has not seen his primary doctor regarding today's concerns. States this feels similar 20s had severe exacerbations that required hospitalizations in the past. Has not had fever or constitutional symptoms. History is otherwise limited secondary to patient's degree of distress at time of initial assessment. TRAVEL OUTSIDE OF THE [place] IN LAST 30 DAYS: No - Related Data Allergies/Adverse Reactions: tramadol Allergy (Verified 07/04/18 15:40) Past Medical History - General Information source: Patient - Social History Smoking Status: Never Smoker Frequency of alcohol use: Occasional Drug Abuse: Marijuana Lives with: Spouse/Significant other Family History: Hypertension, Other - Unobtainable Pulmonary Medical History: Reports: Hx Asthma, Hx Bronchitis Denies: Hx COPD, Hx Pneumonia, Hx Intubation, Hx Respiratory Failure, Hx Sleep Apnea, Hx Tuberculosis Neurological Medical History: Denies: Hx Cerebrovascular Accident, Hx Migraine, Hx Seizures Endocrine Medical History: Denies: Hx Diabetes Mellitus Type 1, Hx Diabetes Mellitus Type 2, Hx Graves' Disease, Hx Hyperthyroidism, Hx Hypothyroidism Renal/ Medical History: Denies: Hx Peritoneal Dialysis Psychiatric Medical History: Reports: Hx Bipolar Disorder Infectious Medical History: Reports: Hx MRSA Past Surgical History: Reports: Hx Abdominal Surgery - umbilical hernia repair, Hx Orthopedic Surgery - R clavical; tibia - Immunizations Hx Diphtheria, Pertussis, Tetanus Vaccination: Yes Hx Pneumococcal Vaccination: 02/23/11 Review of Systems - Review of Systems Notes: Constitutional: Negative for fever. HENT: Negative for sore throat. Eyes: Negative for visual changes. Cardiovascular: Negative for chest pain. Respiratory: Positive for shortness of breath and cough Gastrointestinal: Negative for abdominal pain, vomiting or diarrhea. Genitourinary: Negative for dysuria. Musculoskeletal: Negative for back pain. Skin: Negative for rash. Neurological: Negative for headaches, weakness or numbness. 10 point ROS negative except as marked above and in HPI. Physical Exam - Vital signs Vitals: Temp Pulse Resp BP Pulse Ox 98.0 F 77 25 H 131/77 H 92 10/26/18 00:02 10/26/18 00:02 10/26/18 00:02 10/26/18 00:02 10/26/18 00:02 Interpretation: Tachycardic, Hypoxic, Tachypneic Notes: PHYSICAL EXAMINATION: GENERAL: In moderate to severe respiratory distress. In the tripod position, smells strongly of marijuana HEAD: Atraumatic, normocephalic. EYES: Pupils equal round and reactive to light, extraocular movements intact, sclera anicteric, conjunctiva are normal. ENT: nares patent, oropharynx clear without exudates. Moderately dry mucous membranes. NECK: Normal range of motion, supple without lymphadenopathy LUNGS: Diminished breath sounds in all lung padgett throughout with coarse expiratory wheezing throughout. HEART: Regular tachycardia without murmurs ABDOMEN: Soft, nontender, normoactive bowel sounds. No guarding, no rebound. No masses appreciated. EXTREMITIES: Normal range of motion, no pitting or edema. No cyanosis. NEUROLOGICAL: No focal neurological deficits. Moves all extremities spontaneously and on command. PSYCH: Moderately anxious SKIN: Warm, Dry, normal turgor, no rashes or lesions noted. Course - Re-evaluation Re-evalutation: 10/26/18 00:20 Patient presents in moderate respiratory distress, laboring to speak a full sentence and has intercostal and supraclavicular retractions. Patient has coarse expiratory wheezing in all lung padgett and diminished air movement throughout. He was immediately started on a continuous albuterol and ipratro pium nebulizer. IV magnesium and slight Medrol be administered. IV fluids were likewise be administered. Patient has a history of severe asthma exacerbations requiring intubation in the past. Chest x-ray and labs are pending. Patient will be reassessed every boluses he is high risk for respiratory decompensation. He is not having significant improvement with continuous nebulizers will transi tion to BiPAP. 10/26/18 01:42 Patient has been reassessed on 2 separate occasions. His work of breathing has improved although he continues to be very tight and wheezing in all lung padgett. No longer tachypneic and able to speak in a full sentence. The patient has declined BiPAP stating that this usually makes it harder for him to breathe. Chest x-ray labs unremarkable. 10/26/18 03:15 Patient's work of breathing has improved, wheezing is improved he continues to be hypoxic on room air down to 91%. He continues to have trace wheezing in all lung padgett and moderate tachypnea. The patient is declining hospitalization. I have emphasized to the patient that despite aggressive amounts of nebulizers, magnesium, steroids, he continues to be symptomatic and that I have strongly encouraged hospitalization. The patient has chosen to leave the facility against medical advice. The relevan t issues have been reviewed and discussed with the patient and family at the bedside. At the time of this assessment there is no indication for involuntary commitment. The patient is alert, oriented, and able to express clearly their reasoning for not wanting to remain in the emergency department for further treatment. The patient is not clinically psychotic, intoxicated, and denies and suicidal ideation. Differential or suspected diagnoses based on medical screening exam: Status asthmaticus The patient is aware of the concerning diagnoses and acknowledges understanding of the reasons for the following recommendations: Hospitalization for ongoing treatment The following recommendations/services were offered and refused: Hospitalization, ongoing treatment as an inpatient The following risks were explained: Progression of asthma exacerbation, respiratory distress, need for hospitalization with intubation, , permanent disability, loss of function Clinical impression: Patient is competent to make decisions regarding the medical that is being offered. - Vital Signs Vital signs: Temp Pulse Resp BP Pulse Ox 98.0 F 77 11 L 161/90 H 93 10/26/18 00:02 10/26/18 00:02 10/26/18 02:01 10/26/18 02:01 10/26/18 02:01 - Laboratory Result Diagrams: 10/26/18 00:10 10/26/18 00:10 Laboratory results interpreted by me: 10/26/18 10/26/18 00:10 00:10 RBC 4.34 L Hgb 11.3 L Hct 34.8 L MCH 26.0 L RDW 15.8 H Eosinophils % 14.1 H Absolute Eosinophils 0.9 H Carbon Dioxide 32 H - Diagnostic Test Radiology reviewed: Image reviewed, Reports reviewed Radiology results interpreted by me: 10/26/18 01:42 Chest x-ray: No acute infiltrate or pneumothorax Critical Care Note - Critical Care Note Total time excluding time spent on procedures (mins): 38 Comments: Critical care time spent obtaining history from patient or surrogate, development of treatment plan with patient or surrogate, evaluation of patient's response to treatment, examination of patient, ordering and performing treatments and interventions, ordering and review of laboratory studies, re-ev aluation of patient's condition, ordering and review of radiographic studies and review of old charts Discharge - Discharge Clinical Impression: Respiratory distress Asthma exacerbation Qualifiers: Asthma severity: moderate Asthma persistence: persistent Qualified Code(s): J45.41 - Moderate persistent asthma with (acute) exacerbation Acute respiratory failure Qualifiers: Respiratory failure complication: hypoxia Qualified Code(s): J96.01 - Acute res piratory failure with hypoxia Condition: Serious Disposition: AGAINST MEDICAL ADVICE Additional Instructions: Your being discharged today AGAINST MEDICAL ADVICE. I have strongly advised that she should be hospitalized as your work of breathing continues to be elevated and you continue to need treatment on an inpatient basis. Although your labs and x-ray are normal today, your oxygen level is unacceptably low. After discussing my concerns, you have decided to go home. Please know that I would always be happy to have you back to the emergency department and continue to treat you. You are welcome to return at any time. You are being started on a course of steroids and need to continue using your normal home breathing treatments. Strongly encourage you to return to the emergency department at any time particularly if you begin having worsening of your breathing, passing out, have a fever of greater than 100.4 F. Prescriptions: Prednisone [Deltasone 20 mg Tablet] 2 tab PO DAILY 5 Days tablet Referrals: WILBERTO KNOX MD [Primary Care Provider] - Follow up tomorrow
[2018-10-26 00:23] LABS: ABSOLUTE EOSINOPHILS # (AUTO) 0.9 10^3/uL (0.0-0.6); ABSOLUTE LYMPHOCYTES (AUTO) 1.6 10^3/uL (0.5-4.7); ABSOLUTE MONOCYTES (AUTO) 0.4 10^3/uL (0.1-1.4); ABSOLUTE NEUT (AUTO) 3.5 10^3/uL (1.7-8.2); BASOPHILS % (AUTO) 1.4 % (0-2); EOSINOPHILS % (AUTO) 14.1 % (0-6); HEMATOCRIT 34.8 % (37.9-51.0); HEMOGLOBIN 11.3 g/dL (13.5-17.0); LYMPHOCYTES % (AUTO) 24.2 % (13-45); MEAN CORPUSCULAR HGB CONC 32.4 g/dL (32.0-36.0); MEAN CORPUSCULAR VOLUME 80 fl (80-97); MONOCYTES % (AUTO) 6.1 % (3-13); PLATELET COUNT 290 10^3/uL (150-450); RED BLOOD COUNT 4.34 10^6/uL (4.35-5.55); RED CELL DISTRIBUTION WIDTH 15.8 % (11.5-14.0); SEGMENTED NEUTROPHILS % (AUTO) 54.2 % (42-78); WHITE BLOOD COUNT 6.5 10^3/uL (4.0-10.5)
--- NOTE | 2018-10-26 00:32 | RADIOLOGY REPORT (SQ) ---
EXAM DESCRIPTION: XR CHEST 1 VIEW COMPLETED DATE/TME: 10/26/2018 00:00 CLINICAL HISTORY: 38 years, Male, SOB COMPARISON: 07/04/2018 chest NUMBER OF VIEWS: 1 TECHNIQUE: Portable chest LIMITATIONS: None. FINDINGS: Heart size normal. Old healed right clavicle fracture. Lungs are clear. No pneumothorax IMPRESSION: No acute cardiopulmonary process copyright 2010 [employer]- All Rights Reserved
[2018-10-26 00:40] LABS: ANION GAP 6 (5-19); BLOOD UREA NITROGEN 18 mg/dL (7-20); CARBON DIOXIDE 32 mmol/L (22-30); CHLORIDE 103 mmol/L (98-107); GLUCOSE 86 mg/dL (75-110); POTASSIUM 4.3 mmol/L (3.6-5.0); SODIUM 141.2 mmol/L (137-145)
[2018-10-26 00:44] LABS: CALCIUM 9.1 mg/dL (8.4-10.2)
[2018-10-26] MEDS ORDERED: KETOROLAC TROMETHAMINE INJ/PF 30 MG/1 ML SDV IV ONE (00:58)
[2018-10-26] MEDS ORDERED: LIDOCAINE 2% INJ-PF (20 MG/ML) 10 ML AMPUL NEB ONE (01:37)
[2018-10-26] MEDS ORDERED: KETAMINE HCL INJ 500 MG/10 ML VIAL IV ONE (01:41)
[2018-10-26 02:19] LABS: VENOUS BLOOD HCO3 31.4 mmol/L (20-32); VENOUS BLOOD PCO2 54.5 mmHg (35-63); VENOUS BLOOD PH 7.38 (7.30-7.42)
[2018-10-26 04:34] VITALS: BP 148/88
== END 2018-10-26 04:01 | disposition left against medical advice (07) ==
LOC: ER 23:59
DX: J45.41 Moderate persistent asthma with (acute) exacerbation (principal); J96.01 Acute respiratory failure with hypoxia; R05 Cough; Z88.5 Allergy status to narcotic agent; F12.10 Cannabis abuse, uncomplicated; Z53.20 Procedure and treatment not carried out because of patient's decision for unspecified reasons
CPT/HCPCS: 94640 ×2; 99291; 96361; 96375; 96365; 36415; 85025; 80048; 82803; 71045; J2930; J1885; J3475; J7120; J3490; A9270 ×2; J7620

== ENCOUNTER 2019-02-17 17:07 | Observation (INO) | payer MEDICARE, MEDICAID ==
[2019-02-17] MEDS: IPRATROPIUM/ALBUTEROL 0.5-2.5 MG/3 ML AMPUL NEB ONE ×2 (17:09→17:30)
[2019-02-17] MEDS ORDERED: METHYLPREDNISOLONE INJ 125 MG/2 ML SDV IV ONE (17:09)
[2019-02-17] MEDS: IPRATROPIUM/ALBUTEROL 0.5-2.5 MG/3 ML AMPUL NEB SCH ×4 (17:09→19:40)
[2019-02-17] MEDS: MAGNESIUM SULFATE/D5W 1 GM/100 ML RTUPB IV SCH ×2 (17:09→17:27)
--- NOTE | 2019-02-17 17:11 | ER Document Report ---
ED Medical Screen (RME) - General Chief Complaint: Respiratory Distress Stated Complaint: ASTHMA ATTACK Time Seen by Provider: 02/17/19 17:08 Primary Care Provider: WILBERTO KNOX MD [Primary Care Provider] - Follow up as needed Mode of Arrival: Wheelchair Information source: Patient Notes: 39-year-old male with history of asthma history of intubation presents emergency department reports that he was at the [employer] and all of a sudden he was hit with a asthma attack. Reports he used his inhaler without relief of symptoms. Patient is struggling respiratory rate tachypneic O2 sat 93%. I have greeted and performed a rapid initial assessment of this patient. A comprehensive ED assessment and evaluation of the patient, analysis of test results and completion of the medical decision making process will be conducted by additional ED providers. Dictation of this chart was performed using voice recognition software; therefore, there may be some unintended grammatical errors. TRAVEL OUTSIDE OF THE [place] IN LAST 30 DAYS: No - Related Data Allergies/Adverse Reactions: tramadol Allergy (Verified 07/04/18 15:40) Past Medical History Pulmonary Medical History: Reports: Hx Asthma, Hx Bronchitis Denies: Hx COPD, Hx Pneumonia, Hx Intubation, Hx Respiratory Failure, Hx Sleep Apnea, Hx Tuberculosis Neurological Medical History: Denies: Hx Cerebrovascular Accident, Hx Migraine, Hx Seizures Endocrine Medical History: Denies: Hx Diabetes Mellitus Type 1, Hx Diabetes Mellitus Type 2, Hx Graves' Disease, Hx Hyperthyroidism, Hx Hypothyroidism Renal/ Medical History: Denies: Hx Peritoneal Dialysis Psychiatric Medical History: Reports: Hx Bipolar Disorder Infectious Medical History: Reports: Hx MRSA Past Surgical History: Reports: Hx Abdominal Surgery - umbilical hernia repair, Hx Orthopedic Surgery - R clavical; tibia - Immunizations Hx Diphtheria, Pertussis, Tetanus Vaccination: Yes History of Influenza Vaccine for 02/2017 - 07/2017 Season: No Doctor's Discharge - Discharge Referrals: WILBERTO KNOX MD [Primary Care Provider] - Follow up as needed
[2019-02-17] MEDS ORDERED: MAGNESIUM SULFATE/D5W 1 GM/100 ML RTUPB IV ONE ×2 (17:13→17:16)
--- NOTE | 2019-02-17 17:18 | ER Document Report ---
ED Respiratory Problem - General Chief Complaint: Respiratory Distress Stated Complaint: ASTHMA ATTACK Time Seen by Provider: 02/17/19 17:08 Primary Care Provider: WILBERTO KNOX MD [Primary Care Provider] - Follow up as needed Mode of Arrival: Wheelchair Notes: HPI: Patient is a 39-year-old male with a history of severe asthma requiring intubation in the past, who presents today with the onset around 2 to 3 days of some mostly nasal congestion with some wheezing today while getting a haircut prior to arrival. He did take his albuterol rescue inhaler. Patient denies any chest pain, fevers, calf pain or leg swelling. No recent trips or travel. ROS: See HPI All other review of systems reviewed and otherwise negative Reviewed vital signs and nursing note as charted by RN. PHYSICAL EXAM: CONSTITUTIONAL: Alert and oriented and responds appropriately to questions. Well-appearing; well-nourished HEAD: Normocephalic; atraumatic EYES: PERRL; Conjunctivae clear, sclerae non-icteric ENT: Normal nose; bilateral nonpurulent nasal rhinorrhea; moist mucous membranes; pharynx without lesions noted NECK: Supple without meningismus; non-tender; no cervical lymphadenopathy, no masses CARD: Slightly tachycardic and regular; no murmurs; symmetric distal pulses RESP: Patient has obvious tachypnea. Wheezes throughout on inspiration and expiration. No rhonchi appreciated ABD/GI: Normal bowel sounds; non-distended; soft, non-tender BACK: The back appears normal and is non-tender to palpation EXT: Normal ROM in all joints; non-tender to palpation; no edema SKIN: No acute lesions noted NEURO: CN 2-12 intact; 5/5 bilateral upper and lower extremity strength with se nsation intact to light touch PSYCH: The patient's mood and manner are appropriate. Grooming and personal hygiene are appropriate. TRAVEL OUTSIDE OF THE [place] IN LAST 30 DAYS: No - Related Data Allergies/Adverse Reactions: tramadol Allergy (Verified 07/04/18 15:40) Past Medical History - General Information source: Patient - Social History Smoking Status: Unknown if Ever Smoked Family History: Hypertension, Other - Unobtainable Pulmonary Medical History: Reports: Hx Asthma, Hx Bronchitis Denies: Hx COPD, Hx Pneumonia, Hx Intubation, Hx Respiratory Failure, Hx Sleep Apnea, Hx Tuberculosis Neurological Medical History: Denies: Hx Cerebrovascular Accident, Hx Migraine, Hx Seizures Endocrine Medical History: Denies: Hx Diabetes Mellitus Type 1, Hx Diabetes Mellitus Type 2, Hx Graves' Disease, Hx Hyperthyroidism, Hx Hypothyroidism Renal/ Medical History: Denies: Hx Peritoneal Dialysis Psychiatric Medical History: Reports: Hx Bipolar Disorder Infectious Medical History: Reports: Hx MRSA Past Surgical History: Reports: Hx Abdominal Surgery - umbilical hernia repair, Hx Orthopedic Surgery - R clavical; tibia - Immunizations Hx Diphtheria, Pertussis, Tetanus Vaccination: Yes Hx Pneumococcal Vaccination: 02/23/11 Physical Exam - Vital signs Vitals: Temp Resp BP Pulse Ox 98.1 F 22 H 129/88 H 95 02/17/19 17:24 02/17/19 17:24 02/17/19 17:24 02/17/19 17:24 Course - Re-evaluation Re-evalutation: 02/17/19 17:17 Given the history and physical, we placed the patient on the monitor, provide st eroids, magnesium, duo nebulizers, ABG, and will obtain a portable x-ray of the chest. Patient has obvious tachypnea with wheezing bilaterally. I do believe DVT/PE to be unlikely. We will reassess the patient's respiratory status. 02/17/19 17:41 Patient's breathing and wheezing has improved. 02/17/19 18:16 Wheezing has improved. Given the patient's history of severe asthma exacerbations with still some mild wheezing bilaterally, I do believe that the patient may benefit from serial nebulizers overnight as the steroids have time to kick in and become more effective. - Vital Signs Vital signs: Temp Pulse Resp BP Pulse Ox 98.1 F 22 H 129/88 H 95 02/17/19 17:24 02/17/19 17:24 02/17/19 17:24 02/17/19 17:24 - Laboratory Result Diagrams: 02/17/19 17:36 02/17/19 17:36 Laboratory results interpreted by me: 02/17/19 02/17/19 02/17/19 17:36 17:36 17:45 RBC 4.34 L Hgb 11.5 L Hct 35.0 L MCH 26.5 L RDW 16.5 H Eos % (Auto) 16.1 H Absolute Eos (auto) 0.9 H Carbonic Acid 1.64 H ABG pCO2 54.5 H ABG pO2 58.8 L ABG HCO3 30.0 H ABG Total CO2 31.6 H ABG O2 Saturation 89.0 L Glucose 131 H Critical Care Note - Critical Care Note Total time excluding time spent on procedures (mins): 40 Discharge - Discharge Clinical Impression: Asthma exacerbation attacks Qualifiers: Asthma severity: severe Asthma persistence: unspecified Qualified Code(s): J45.901 - Unspecified asthma with (acute) exacerbation Condition: Fair Disposition: ADMITTED OBSERVATION Admitting Provider: Liang (Hospitalist) Unit Admitted: Telemetry Referrals: WILBERTO KNOX MD [Primary Care Provider] - Follow up as needed
--- NOTE | 2019-02-17 17:41 | RADIOLOGY REPORT (SQ) ---
EXAM DESCRIPTION: CHEST SINGLE VIEW COMPLETED DATE/TIME: 02/17/2019 5:33 pm REASON FOR STUDY: tr2/wheezing COMPARISON: 10/26/2018. EXAM PARAMETERS: NUMBER OF VIEWS: One view. TECHNIQUE: Single frontal radiographic view of the chest acquired. RADIATION DOSE: NA LIMITATIONS: None. FINDINGS: LUNGS AND PLEURA: No opacities, masses or pneumothorax. No pleural effusion. MEDIASTINUM AND HILAR STRUCTURES: No masses. Contour normal. HEART AND VASCULAR STRUCTURES: Heart normal in size. Normal vasculature. BONES: No acute findings. Old fracture of the right clavicle. HARDWARE: None in the chest. OTHER: No other significant finding. IMPRESSION: NO ACUTE RADIOGRAPHIC FINDING IN THE CHEST. TECHNICAL DOCUMENTATION: JOB ID: [id number] [employer]- All Rights Reserved Reading location - IP/workstation name: [email or web address]
[2019-02-17 17:45] LABS: ABSOLUTE BASOPHILS # (AUTO) 0.1 10^3/uL (0.0-0.2); ABSOLUTE EOSINOPHILS # (AUTO) 0.9 10^3/uL (0.0-0.6); ABSOLUTE LYMPHOCYTES (AUTO) 1.5 10^3/uL (0.5-4.7); ABSOLUTE MONOCYTES (AUTO) 0.4 10^3/uL (0.1-1.4); ABSOLUTE NEUT (AUTO) 2.7 10^3/uL (1.7-8.2); BASOPHILS % (AUTO) 1.4 % (0-2); EOSINOPHILS % (AUTO) 16.1 % (0-6); HEMOGLOBIN 11.5 g/dL (13.5-17.0); LYMPHOCYTES % (AUTO) 27.2 % (13-45); MEAN CORPUSCULAR HEMOGLOBIN 26.5 pg (27.0-33.4); MEAN CORPUSCULAR HGB CONC 32.8 g/dL (32.0-36.0); MEAN CORPUSCULAR VOLUME 81 fl (80-97); MONOCYTES % (AUTO) 7.8 % (3-13); PLATELET COUNT 268 10^3/uL (150-450); RED BLOOD COUNT 4.34 10^6/uL (4.35-5.55); RED CELL DISTRIBUTION WIDTH 16.5 % (11.5-14.0); SEGMENTED NEUTROPHILS % (AUTO) 47.5 % (42-78); TOTAL CELLS COUNTED % (AUTO) 100 %; WHITE BLOOD COUNT 5.7 10^3/uL (4.0-10.5)
[2019-02-17 18:04] LABS: ARTERIAL BLOOD BASE EXCESS 3.4 mmol/L; ARTERIAL BLOOD FIO2 21%; ARTERIAL BLOOD H2CO3 1.64 mmol/L (1.05-1.35); ARTERIAL BLOOD PCO2 54.5 mmHg (35-45); ARTERIAL BLOOD PH 7.36 (7.35-7.45); ARTERIAL BLOOD PO2 58.8 mmHg (80-100); ARTERIAL BLOOD TOTAL CO2 31.6 mmol/L (23-27)
[2019-02-17 18:09] LABS: ALBUMIN 4.1 g/dL (3.5-5.0); ALKALINE PHOSPHATASE 48 U/L (38-126); ANION GAP 6 (5-19); ASPARTATE AMINO TRANSFERASE 29 U/L (17-59); BILIRUBIN,DIRECT 0.2 mg/dL (0.0-0.4); BILIRUBIN,TOTAL 0.3 mg/dL (0.2-1.3); BLOOD UREA NITROGEN 12 mg/dL (7-20); CALCIUM 9.1 mg/dL (8.4-10.2); CARBON DIOXIDE 30 mmol/L (22-30); CHLORIDE 102 mmol/L (98-107); GLUCOSE 131 mg/dL (75-110); TOTAL PROTEIN 6.7 g/dL (6.3-8.2)
[2019-02-17] MEDS ORDERED: IPRATROPIUM/ALBUTEROL 0.5-2.5 MG/3 ML AMPUL NEB PRN (18:40)
--- NOTE | 2019-02-17 18:50 | PDOC H&P ---
History of Present Illness Admission Date/PCP: 02/17/19 18:39 WILBERTO KNOX MD History of Present Illness: MARILIN HARRINGTON is a 39 year old male with a history of asthma who does not take his Advair every day he says he uses his albuterol inhaler very frequently who comes in today with an asthma exacerbation. He said he was in the [facility] and all of a sudden he had sudden onset shortness of breath. He does not know exactly what triggered it. He said he uses asthma inhaler and took several puffs off of it and started to feel little bit better. He said he then went to a friend's house and try to walk to the front door and got really short of breath and then had his girlfriend bring him to the ER. He was apparently pretty short of breath whenever he first came in and was given some steroids and some duo nebs and some magnesium and since that has settled down some. Right now he is a little jittery from all the nebs. He is being admitted for treatment of his asthma exacerbation. Past Medical History Pulmonary Medical History: Reports: Asthma, Bronchitis Denies: Chronic Obstructive Pulmonary Disease (COPD), Intubation, Pneumonia, Respiratory Failure, Sleep Apnea, Tuberculosis Neurological Medical History: Denies: Migraine, Seizures Endocrine Medical History: Denies: Diabetes Mellitus Type 1, Diabetes Mellitus Type 2, Hyperthyroidism, Hypothyroidism Psychiatric Medical History: Reports: Bipolar Disorder Infectious Medical History: Reports: Methicillin-Resistant Staph Aureus Past Surgical History Past Surgical History: Reports: Orthopedic Surgery - R clavical; tibia Social History Smoking Status: Unknown if Ever Smoked Frequency of Alcohol Use: Occasional Hx Recreational Drug Use: Yes Drugs: Cocaine, Marijuana Hx Prescription Drug Abuse: No Family History Family History: Hypertension, Other - Unobtainable Parental Family History Reviewed: Yes - Hypertension Children Family History Reviewed: NA Sibling(s) Family History Reviewed.: Yes - Nothing known Medication/Allergy Home Medications: Albuterol Sulfate [Ventolin Hfa] 2 puff IH Q6HP PRN 03/10/18 Cetirizine HCl [Zyrtec] 10 mg PO DAILY 03/10/18 Fluticasone/Salmeterol [Advair 250-50 Diskus 28 dose] 1 puff IH Q12 03/10/18 Ipratropium/Albuterol Sulfate [Combivent Respimat Inhal [place]] 1 puff IH QID 03/10/18 Montelukast Sodium [Singulair 10 mg Tablet] 10 mg PO QHS 03/10/18 Tiotropium [place] [Spiriva Respimat] 2 puff IH DAILY 03/10/18 Hydromorphone HCl [Dilaudid 2 Mg Tablet] 2 mg PO Q6H PRN #20 tablet 05/02/18 Prednisone [Deltasone 10 mg Tablet] 10 mg PO DAILY #18 tablet 06/16/18 Albuterol Sulfate [Proair HFA Inhalation Aerosol 8.5 gm MDI] 2 puff IH Q4H PRN #1 mdi 07/04/18 Albuterol Sulfate [Ventolin 0.083% Neb 2.5 mg/3 mL Ampul] 1 vial NEB Q4 #60 vial 07/04/18 Amox Tr/Potassium Clavulanate [Augmentin 875-125 mg Tablet] 1 tab PO BID #20 tablet 07/04/18 Benzonatate [Tessalon Perles 100 mg Capsule] 100 mg PO Q8HP PRN #40 capsule 07/04/18 Prednisone [Deltasone 20 mg Tablet] 3 tab PO DAILY 5 Days tablet 07/04/18 Prednisone [Deltasone 20 mg Tablet] 2 tab PO DAILY 5 Days tablet 10/26/18 Allergies/Adverse Reactions: tramadol Allergy (Verified 07/04/18 15:40) Review of Systems All systems: reviewed and no additional remarkable complaints except as stated - All systems reviewed and were negative except as noted in the HPI Physical Exam Vital Signs: Temp Pulse Resp BP Pulse Ox 98.1 F 17 157/98 H 95 02/17/19 17:24 02/17/19 18:01 02/17/19 18:01 02/17/19 18:01 Intake & Output 02/16/19 02/17/19 02/18/19 06:59 06:59 06:59 Intake Total 100 Balance 100 Weight 86.183 kg General appearance: PRESENT: no acute distress, cooperative, disheveled Head exam: PRESENT: atraumatic, normocephalic Eye exam: PRESENT: EOMI, PERRLA. ABSENT: conjunctival injection, nystagmus, scleral icterus Ear exam: PRESENT: normal external ear exam Mouth exam: PRESENT: moist, neck supple Throat exam: ABSENT: post pharyngeal erythema Neck exam: PRESENT: full ROM. ABSENT: carotid bruit, JVD, lymphadenopathy, meningismus, tenderness, thyromegaly Respiratory exam: PRESENT: prolonged expiratory phas, symmetrical, wheezes. ABSENT: accessory muscle use, chest wall tenderness, crackles, rhonchi, tachypnea, unlabored Cardiovascular exam: PRESENT: RRR, +S1, +S2 Pulses: PRESENT: normal carotid pulses Vascular exam: PRESENT: normal capillary refill GI/Abdominal exam: PRESENT: normal bowel sounds, soft. ABSENT: distended, guarding, rebound, tenderness Extremities exam: ABSENT: clubbing, pedal edema Musculoskeletal exam: PRESENT: normal inspection. ABSENT: deformity Neurological exam: PRESENT: alert, awake, oriented to person, oriented to place, oriented to time, oriented to situation, CN II-XII grossly intact. ABSENT: motor sensory deficit Psychiatric exam: PRESENT: appropriate affect, normal mood Skin exam: PRESENT: dry, warm Results Laboratory Results: 02/17/19 17:36 02/17/19 17:36 02/17/19 02/17/19 02/17/19 17:36 17:36 17:45 WBC 5.7 RBC 4.34 L Hgb 11.5 L Hct 35.0 L MCV 81 MCH 26.5 L MCHC 32.8 RDW 16.5 H Plt Count 268 Seg Neutrophils % 47.5 Carbonic Acid 1.64 H HCO3/H2CO3 Ratio 18:1 ABG pH 7.36 ABG pCO2 54.5 H ABG pO2 58.8 L ABG HCO3 30.0 H ABG O2 Saturation 89.0 L ABG Base Excess 3.4 FiO2 21% Sodium 137.9 Potassium 4.0 Chloride 102 Carbon Dioxide 30 Anion Gap 6 BUN 12 Creatinine 0.85 Est GFR ( Amer) > 60 Glucose 131 H Calcium 9.1 Total Bilirubin 0.3 AST 29 Alkaline Phosphatase 48 Total Protein 6.7 Albumin 4.1 Impressions: Chest X-Ray 02/17/19 17:13 IMPRESSION: NO ACUTE RADIOGRAPHIC FINDING IN THE CHEST. Assessment and Plan - Diagnosis (1) Asthma exacerbation Qualifiers: Asthma severity: moderate Asthma persistence: persistent Qualified Code(s): J45.41 - Moderate persistent asthma with (acute) exacerbation Is this a current diagnosis for this admission?: Yes Plan: We will keep him on some IV steroids and some scheduled nebulizer treatments. He does not appear to need supplemental O2 at this time. Talk to him about taking his Advair on regular basis so his doctor can know if his treatment is effective or not. I also discouraged him from smoking marijuana as this is definitely not going to help his asthma. - Time Time Spent with patient: 35 or more minutes
[2019-02-17] MEDS ORDERED: LORAZEPAM INJ 2 MG/1 ML VIAL IV ONE (18:58)
[2019-02-17] MEDS ORDERED: METHYLPREDNISOLONE INJ 40 MG/1 ML SDV IV SCH (22:00)
[2019-02-17 22:13] VITALS: BP 149/85
[2019-02-18] MEDS: IPRATROPIUM/ALBUTEROL 0.5-2.5 MG/3 ML AMPUL NEB SCH (01:54)
[2019-02-18] MEDS ORDERED: METHYLPREDNISOLONE INJ 40 MG/1 ML SDV IV ONE (03:30)
[2019-02-18] MEDS ORDERED: METHYLPREDNISOLONE INJ 40 MG/1 ML SDV IV SCH (14:00)
--- NOTE | 2019-03-03 16:42 | Left Against Medical Advice ---
Against Medical Advice Admission Date/Time: 02/17/19 18:39 Primary Care Provider: WILBERTO KNOX MD Date of Patient Emigration: 02/18/19 - Diagnosis: (1) Asthma exacerbation Is this a current diagnosis for this admission?: Yes - Summary: Summary: Please see Admission and Progress Notes as well. MARILIN HARRINGTON is a 39 M, who LEFT AGAINST MEDICAL ADVICE. The Patient was admitted on 02/17/19 18:39.
== END 2019-02-18 06:38 | disposition left against medical advice (07) ==
LOC: ER 17:07 → EH 18:39 → 5 20:03
PROVIDERS: ADMIT Family Medicine; ATTEND Family Medicine
DX: J45.41 Moderate persistent asthma with (acute) exacerbation (principal); R09.81 Nasal congestion; Z79.51 Long term (current) use of inhaled steroids; Z82.49 Family history of ischemic heart disease and other diseases of the circulatory system
CPT/HCPCS: 94640 ×3; 99291; 96375; 96365; 36415; 82803; 85025; 80053; 71045; G0378 ×3; J2920; J2930; J2060; J3475; A9270 ×2; J7620

== ENCOUNTER 2019-03-19 04:35 | Emergency (ER) | payer MEDICARE, MEDICAID ==
[2019-03-19] MEDS ORDERED: IPRATROPIUM/ALBUTEROL 0.5-2.5 MG/3 ML AMPUL NEB ONE (04:53)
--- NOTE | 2019-03-19 04:57 | ER Document Report ---
ED Medical Screen (RME) - General Chief Complaint: Breathing Difficulty Stated Complaint: DIFFICULTY BREATHING Time Seen by Provider: 03/19/19 04:50 Primary Care Provider: WILBERTO KNOX MD [Primary Care Provider] - Follow up as needed Notes: 39-year-old male with a history of asthma and continued smoking comes by EMS for chief complaint of difficulty breathing for the past week. He states he had a fever yesterday as well. He states that he feels much better now after 2 DuoNeb's, Cymetra, 2 g of magnesium from EMS. He denies any other medical history. TRAVEL OUTSIDE OF THE [place] IN LAST 30 DAYS: No - Related Data Allergies/Adverse Reactions: tramadol Allergy (Verified 07/04/18 15:40) Past Medical History Pulmonary Medical History: Reports: Hx Asthma, Hx Bronchitis, Hx Pneumonia Denies: Hx COPD, Hx Intubation, Hx Respiratory Failure, Hx Sleep Apnea, Hx Tuberculosis Neurological Medical History: Denies: Hx Cerebrovascular Accident, Hx Migraine, Hx Seizures Endocrine Medical History: Denies: Hx Diabetes Mellitus Type 1, Hx Diabetes Raissa litus Type 2, Hx Graves' Disease, Hx Hyperthyroidism, Hx Hypothyroidism Renal/ Medical History: Denies: Hx Peritoneal Dialysis Psychiatric Medical History: Reports: Hx Bipolar Disorder Infectious Medical History: Reports: Hx MRSA Past Surgical History: Reports: Hx Abdominal Surgery - umbilical hernia repair, Hx Orthopedic Surgery - R clavical; tibia - Immunizations Hx Diphtheria, Pertussis, Tetanus Vaccination: Yes Physical Exam - Respiratory Breath sounds: Wheezing - Next [place] wheezes throughout, congested cough, however patient can speak in full sentences and is not in respiratory distress Course - Re-evaluation Re-evalutation: Patient still with expiratory wheezing throughout, congested cough, borderline hypoxia at 92 to 94% on room air. Giving the third DuoNeb, placing on oxygen, work-up pending. He is not tachycardic or hypotensive, not currently febrile. I have greeted and performed a rapid initial assessment of this patient. A comprehensive ED assessment and evaluation of the patient, analysis of test results and completion of the medical decision making process will be conducted by additional ED providers. Doctor's Discharge - Discharge Referrals: WILBERTO KNOX MD [Primary Care Provider] - Follow up as needed
[2019-03-19 05:41] LABS: ABSOLUTE EOSINOPHILS # (AUTO) 0.5 10^3/uL (0.0-0.6); ABSOLUTE LYMPHOCYTES (AUTO) 0.7 10^3/uL (0.5-4.7); ABSOLUTE MONOCYTES (AUTO) 0.5 10^3/uL (0.1-1.4); ABSOLUTE NEUT (AUTO) 4.8 10^3/uL (1.7-8.2); BASOPHILS % (AUTO) 0.5 % (0-2); EOSINOPHILS % (AUTO) 8.2 % (0-6); HEMATOCRIT 35.2 % (37.9-51.0); HEMOGLOBIN 11.4 g/dL (13.5-17.0); LYMPHOCYTES % (AUTO) 10.7 % (13-45); MEAN CORPUSCULAR HGB CONC 32.3 g/dL (32.0-36.0); MEAN CORPUSCULAR VOLUME 81 fl (80-97); MONOCYTES % (AUTO) 7.9 % (3-13); PLATELET COUNT 281 10^3/uL (150-450); RED BLOOD COUNT 4.36 10^6/uL (4.35-5.55); RED CELL DISTRIBUTION WIDTH 15.6 % (11.5-14.0); SEGMENTED NEUTROPHILS % (AUTO) 72.7 % (42-78); TOTAL CELLS COUNTED % (AUTO) 100 %; WHITE BLOOD COUNT 6.6 10^3/uL (4.0-10.5)
--- NOTE | 2019-03-19 05:53 | RADIOLOGY REPORT (SQ) ---
CLINICAL HISTORY: difficulty breathing, recent fever COMPARISON: February 17, 2019. TECHNIQUE: XR CHEST 1 VIEW 03/19/2019 4:53 AM CDT FINDINGS: Cardiac silhouette is normal in size. Lungs are clear without consolidation, atelectasis, mass or edema. There is no pleural effusion. There is no pneumothorax. There are no acute osseous findings. IMPRESSION: Clear lungs.
[2019-03-19 06:00] LABS: ALBUMIN 3.5 g/dL (3.5-5.0); ALKALINE PHOSPHATASE 62 U/L (38-126); ANION GAP 8 (5-19); ASPARTATE AMINO TRANSFERASE 23 U/L (17-59); BILIRUBIN,DIRECT 0.1 mg/dL (0.0-0.4); BILIRUBIN,TOTAL 0.2 mg/dL (0.2-1.3); BLOOD UREA NITROGEN 16 mg/dL (7-20); CALCIUM 8.6 mg/dL (8.4-10.2); CARBON DIOXIDE 29 mmol/L (22-30); CHLORIDE 108 mmol/L (98-107); GLUCOSE 110 mg/dL (75-110); POTASSIUM 3.8 mmol/L (3.6-5.0); TOTAL PROTEIN 6.3 g/dL (6.3-8.2)
[2019-03-19 06:13] LABS: VENOUS BLOOD BASE EXCESS 4.3 mmol/L; VENOUS BLOOD HCO3 30.3 mmol/L (20-32); VENOUS BLOOD PCO2 51.3 mmHg (35-63); VENOUS BLOOD PH 7.39 (7.30-7.42)
--- NOTE | 2019-03-19 06:19 | ER Document Report ---
ED General - General Chief Complaint: Shortness Of Breath Stated Complaint: DIFFICULTY BREATHING Time Seen by Provider: 03/19/19 04:50 Primary Care Provider: WILBERTO KNOX MD [Primary Care Provider] - Follow up as needed TRAVEL OUTSIDE OF THE [place] IN LAST 30 DAYS: No - HPI Notes: Patient is a 39-year-old male with a history of asthma who presents to the emergency department for evaluation of difficulty breathing. He states his symptoms been present for about 4 days. They seem to be getting progressively worse. He states he felt fevered yesterday. He denies any nausea or vomiting. He has had a nonproductive cough. Eating and drinking normally. Taking his medications as prescribed. He does continue to smoke. He states he does not smoke cigarettes daily, but states he does smoke marijuana daily. He has some chronic low back pain that seems to be exacerbated at this time, but otherwise denies any acute complaints or concerns. - Related Data Allergies/Adverse Reactions: tramadol Allergy (Verified 07/04/18 15:40) Home Medications: Was reviewed, please see notes Past Medical History - General Information source: Patient - Social History Smoking Status: Current Every Day Smoker Drug Abuse: Marijuana Family History: Hypertension, Other - Unobtainable Patient has suicidal ideation: No Patient has homicidal ideation: No Pulmonary Medical History: Reports: Hx Asthma, Hx Bronchitis, Hx Pneumonia Denies: Hx COPD, Hx Intubation, Hx Respiratory Failure, Hx Sleep Apnea, Hx Tuberculosis Neurological Medical History: Denies: Hx Cerebrovascular Accident, Hx Migraine, Hx Seizures Endocrine Medical History: Denies: Hx Diabetes Mellitus Type 1, Hx Diabetes Mellitus Type 2, Hx Graves' Disease, Hx Hyperthyroidism, Hx Hypothyroidism Renal/ Medical History: Denies: Hx Peritoneal Dialysis Psychiatric Medical History: Reports: Hx Bipolar Disorder Infectious Medical History: Reports: Hx MRSA Past Surgical History: Reports: Hx Abdominal Surgery - umbilical hernia repair, Hx Orthopedic Surgery - R clavical; tibia - Immunizations Hx Diphtheria, Pertussis, Tetanus Vaccination: Yes Hx Pneumococcal Vaccination: 02/23/11 Review of Systems - Review of Systems Constitutional: See HPI EENT: No symptoms reported Cardiovascular: No symptoms reported Respiratory: See HPI Gastrointestinal: No symptoms reported Genitourinary: No symptoms reported Musculoskeletal: No symptoms reported Skin: No symptoms reported Neurological/Psychological: No symptoms reported Physical Exam - Vital signs Vitals: Pulse Ox 87 L 03/19/19 04:37 - Notes Notes: Vital signs reviewed, please refer to chart. Head is normocephalic, atraumatic. Pupils equal round, reactive to light. Neck is supple without meningismus. Heart is regular rate and rhythm. Lungs reveal scant inspiratory and expiratory wheezes throughout. Abdomen is soft, nontender, normoactive bowel sounds throu ghout. Extremities without cyanosis, clubbing. Posterior calves are nontender. Peripheral pulses are equal. Skin is warm and dry. Patient is awake, alert, neurological exam is nonfocal. Course - Re-evaluation Re-evalutation: 03/19/19 07:20 Patient presents emergency department for evaluation of exacerbation of asthma. He is advised he needs to quit smoking. He received multiple treatments in route, further treatment here. He is feeling significantly improved. At rest he is 96% on room air. He still has very scant wheezes, but they have improved greatly. I will send him home with steroids and refills for his DuoNeb prescription. He is also given an albuterol inhaler here to go. He is to follow-up with primary care. He states he plans on following up with his primary care provider today to discuss possible prescription for Chantix. He is encouraged to do so. He is to return to the ED with worsening or new concerning symptoms of any sort. - Vital Signs Vital signs: Temp Pulse Resp BP Pulse Ox 98.4 F 14 124/84 95 03/19/19 06:32 03/19/19 06:32 03/19/19 06:32 03/19/19 06:32 - Laboratory Result Diagrams: 03/19/19 05:27 03/19/19 05:27 Laboratory results interpreted by me: 03/19/19 03/19/19 05:27 05:27 Hgb 11.4 L Hct 35.2 L MCH 26.0 L RDW 15.6 H Lymph % (Auto) 10.7 L Eos % (Auto) 8.2 H Chloride 108 H - Diagnostic Test Radiology reviewed: Reports reviewed Radiology results interpreted by me: 03/19/19 06:19 Chest X-Ray 03/19/19 04:53 IMPRESSION: Clear lungs. Discharge - Discharge Clinical Impression: Asthma exacerbation Condition: Stable Disposition: HOME, SELF-CARE Instructions: Asthma ([facility]) Additional Instructions: Please try to quit smoking. Take all the prednisone as prescribed, starting tomorrow. Follow-up with primary care this week. Return to the emergency department with worsening or concerning symptoms of any sort. Forms: Smoking Cessation Education Referrals: WILBERTO KNOX MD [Primary Care Provider] - Follow up as needed
[2019-03-19 06:32] LABS: A TYPE INFLUENZA AG NEGATIVE (NEGATIVE); B INFLUENZA AG NEGATIVE (NEGATIVE)
[2019-03-19] MEDS ORDERED: ALBUTEROL SULFATE HFA (90 MCG/PUFF) 8 GM MDI (1 MDI/ER DISP) IH PRN (07:22)
[2019-03-19 07:42] VITALS: BP 129/82
--- NOTE | 2019-03-20 13:09 | EKG REPORT ---
SEVERITY:- NORMAL ECG - SINUS RHYTHM : Confirmed by: Pamella Garza MD 20-Mar-2019 13:07:56
== END 2019-03-19 07:38 | disposition home or self-care (01) ==
LOC: ER 04:35
DX: J45.901 Unspecified asthma with (acute) exacerbation (principal); R05 Cough; F17.200 Nicotine dependence, unspecified, uncomplicated; F12.10 Cannabis abuse, uncomplicated; M54.5 Low back pain; G89.29 Other chronic pain; Z88.5 Allergy status to narcotic agent; Z87.01 Personal history of pneumonia (recurrent)
CPT/HCPCS: 93005; 94640; 99285; 36415; 87040; 85025; 80053; 82803; 87804; 71045; 93010; A9270 ×2; J3490; J7620

== ENCOUNTER 2019-04-17 07:17 | Emergency (ER) | payer MEDICARE, MEDICAID ==
[2019-04-17] MEDS ORDERED: IPRATROPIUM/ALBUTEROL 0.5-2.5 MG/3 ML AMPUL NEB ONE (07:59)
[2019-04-17] MEDS ORDERED: NORMAL SALINE 1000 ML 1,000 ML IV ONE ×2 (07:59→09:32)
[2019-04-17] MEDS ORDERED: ALBUTEROL SULFATE 0.083% NEB 2.5 MG/3 ML AMPUL NEB ONE ×2 (07:59→09:32)
[2019-04-17] MEDS ORDERED: METHYLPREDNISOLONE INJ 125 MG/2 ML SDV IV ONE (07:59)
--- NOTE | 2019-04-17 08:02 | ER Document Report ---
ED Respiratory Problem - General Chief Complaint: Asthma Exacerbation Stated Complaint: SHORTNESS OF BREATH Time Seen by Provider: 04/17/19 07:51 Primary Care Provider: WILBERTO KNOX MD [Primary Care Provider] - Follow up as needed Mode of Arrival: Ambulatory Information source: Patient, [facility] Records Notes: 39-year-old male patient with asthma reports 2-week history of worsening breathing and wheezing. States his nebulizers only helped briefly at this time. Reports he has had thick yellow sputum production. No fevers that he knows of. He did see his primary care provider on 04/14/2019. He states he was not given any prescriptions. Review of pharmacy records shows that a prescription for Augmentin was apparently electronically sent to the pharmacy on 04/14/2019 and a prescription for Chantix was sent on 04/15/2019. The patient was not aware that these prescriptions have been sent to the pharmacy. TRAVEL OUTSIDE OF THE [place] IN LAST 30 DAYS: No - Related Data Allergies/Adverse Reactions: tramadol Allergy (Verified 04/17/19 07:22) Home Medications: albuterol Past Medical History - General Information source: Patient - Social History Smoking Status: Never Smoker Cigarette use (# per day): No Chew tobacco use (# tins/day): No Smoking Education Provided: No Frequency of alcohol use: None Drug Abuse: None Occupation: unemployed Lives with: Spouse/Significant other Family History: Hypertension, Other - Unobtainable Patient has suicidal ideation: No Patient has homicidal ideation: No Pulmonary Medical History: Reports: Hx Asthma, Hx Bronchitis, Hx Pneumonia Psychiatric Medical History: Reports: Hx Bipolar Disorder Infectious Medical History: Reports: Hx MRSA Past Surgical History: Reports: Hx Abdominal Surgery - umbilical hernia repair, Hx Orthopedic Surgery - R clavical; tibia - Immunizations Hx Diphtheria, Pertussis, Tetanus Vaccination: Yes Hx Pneumococcal Vaccination: 02/23/11 Review of Systems - Review of Systems Constitutional: No symptoms reported EENT: No symptoms reported Cardiovascular: No symptoms reported Respiratory: See HPI, Cough, Short of breath, Sputum, Wheezing Gastrointestinal: No symptoms reported Genitourinary: No symptoms reported Musculoskeletal: No symptoms reported Skin: No symptoms reported Neurological/Psychological: No symptoms reported Physical Exam - Vital signs Vitals: Temp Pulse Resp BP Pulse Ox 97.8 F 95 22 H 129/72 H 92 04/17/19 07:25 04/17/19 07:25 04/17/19 07:25 04/17/19 07:25 04/17/19 07:25 - General General appearance: Alert, Anxious In distress: Moderate - HEENT Head: Normocephalic, Atraumatic Eyes: Normal Pupils: PERRL - Respiratory Respiratory status: Retractions, Tachypnea Breath sounds: Decreased air movement, Rhonchi, Wheezing - Cardiovascular Rhythm: Regular Heart sounds: Normal auscultation Murmur: No - Abdominal Inspection: Normal - Back Back: Normal - Extremities General upper extremity: Normal inspection General lower extremity: Normal inspection - Neurological Neuro grossly intact: Yes - Psychological Associated symptoms: Anxious - Skin Skin Temperature: Warm Skin Moisture: Dry Skin Color: Normal Course - Re-evaluation Re-evalutation: 04/17/19 11:10 Patient reports he is feeling much better wants to go home. He still does have diffuse expiratory expiratory wheezes, which he says is about normal for him. He states his breathing sounds bad and is messed up all the time. He does have a prescription at the drugstore for Augmentin waiting for him. Will provide prescription for prednisone. He states he does have enough medicine for his nebulizers. - Vital Signs Vital signs: Temp Pulse Resp BP Pulse Ox 97.8 F 95 19 136/95 H 95 04/17/19 07:25 04/17/19 07:25 04/17/19 08:01 04/17/19 08:01 04/17/19 08:01 - Laboratory Result Diagrams: 04/17/19 08:23 04/17/19 08:23 Laboratory results interpreted by me: 04/17/19 04/17/19 08:23 08:23 Hgb 11.7 L Hct 35.7 L MCH 26.1 L RDW 16.1 H Eos % (Auto) 8.5 H Absolute Eos (auto) 0.7 H Total Bilirubin 0.1 L - Diagnostic Test Radiology reviewed: Image reviewed, Reports reviewed - Chest x-ray does not show acute cardiopulmonary changes Discharge - Discharge Clinical Impression: Acute respiratory distress Asthma exacerbation Qualifiers: Asthma severity: severe Asthma persistence: persistent Qualified Code(s): J45.51 - Severe persistent asthma with (acute) exacerbation Condition: Stable Disposition: HOME, SELF-CARE Additional Instructions: Continue your regular breathing treatments. Drink plenty of fluids and get plenty of rest. Add the prednisone as prescribed today. 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 Follow-up with your primary care provider this week for recheck before you run out of the prednisone. RETURN TO THE EMERGENCY ROOM IF ANY NEW OR WORSENING SYMPTOMS. Prescriptions: Prednisone [Deltasone 20 mg Tablet] 20 mg PO ASDIR PRN #15 tablet PRN Reason: Referrals: WILBERTO KNOX MD [Primary Care Provider] - Follow up in 3-5 days
[2019-04-17] MEDS: MAGNESIUM SULFATE/D5W 1 GM/100 ML RTUPB IV SCH ×2 (08:22→09:00)
[2019-04-17 08:30] VITALS: BP 136/95
[2019-04-17 08:35] LABS: ABSOLUTE BASOPHILS # (AUTO) 0.1 10^3/uL (0.0-0.2); ABSOLUTE EOSINOPHILS # (AUTO) 0.7 10^3/uL (0.0-0.6); ABSOLUTE LYMPHOCYTES (AUTO) 1.3 10^3/uL (0.5-4.7); ABSOLUTE MONOCYTES (AUTO) 0.6 10^3/uL (0.1-1.4); ABSOLUTE NEUT (AUTO) 5.1 10^3/uL (1.7-8.2); BASOPHILS % (AUTO) 0.9 % (0-2); EOSINOPHILS % (AUTO) 8.5 % (0-6); HEMATOCRIT 35.7 % (37.9-51.0); HEMOGLOBIN 11.7 g/dL (13.5-17.0); LYMPHOCYTES % (AUTO) 16.8 % (13-45); MEAN CORPUSCULAR HEMOGLOBIN 26.1 pg (27.0-33.4); MEAN CORPUSCULAR HGB CONC 32.6 g/dL (32.0-36.0); MEAN CORPUSCULAR VOLUME 80 fl (80-97); MONOCYTES % (AUTO) 7.4 % (3-13); PLATELET COUNT 265 10^3/uL (150-450); RED BLOOD COUNT 4.47 10^6/uL (4.35-5.55); RED CELL DISTRIBUTION WIDTH 16.1 % (11.5-14.0); SEGMENTED NEUTROPHILS % (AUTO) 66.4 % (42-78); TOTAL CELLS COUNTED % (AUTO) 100 %; WHITE BLOOD COUNT 7.7 10^3/uL (4.0-10.5)
--- NOTE | 2019-04-17 08:40 | RADIOLOGY REPORT (SQ) ---
EXAM DESCRIPTION: CHEST SINGLE VIEW COMPLETED DATE/TIME: 04/17/2019 8:32 am REASON FOR STUDY: Asthma exacerbation COMPARISON: None. EXAM PARAMETERS: NUMBER OF VIEWS: One view. TECHNIQUE: Single frontal radiographic view of the chest acquired. RADIATION DOSE: NA LIMITATIONS: None. FINDINGS: LUNGS AND PLEURA: No opacities, masses or pneumothorax. No pleural effusion. MEDIASTINUM AND HILAR STRUCTURES: No masses. Contour normal. HEART AND VASCULAR STRUCTURES: Heart normal in size. Normal vasculature. BONES: No acute findings. HARDWARE: None in the chest. OTHER: No other significant finding. IMPRESSION: NO ACUTE RADIOGRAPHIC FINDING IN THE CHEST. TECHNICAL DOCUMENTATION: JOB ID: [id number] [employer]- All Rights Reserved Reading location - IP/workstation name: [email or web address]
[2019-04-17 09:01] LABS: ALBUMIN 3.7 g/dL (3.5-5.0); ALKALINE PHOSPHATASE 50 U/L (38-126); ANION GAP 7 (5-19); ASPARTATE AMINO TRANSFERASE 21 U/L (17-59); BILIRUBIN,DIRECT 0.1 mg/dL (0.0-0.4); BILIRUBIN,TOTAL 0.1 mg/dL (0.2-1.3); BLOOD UREA NITROGEN 16 mg/dL (7-20); CALCIUM 9.1 mg/dL (8.4-10.2); CARBON DIOXIDE 30 mmol/L (22-30); CHLORIDE 106 mmol/L (98-107); GLUCOSE 82 mg/dL (75-110); TOTAL PROTEIN 6.4 g/dL (6.3-8.2)
== END 2019-04-17 11:21 | disposition home or self-care (01) ==
LOC: ER 07:17
DX: J45.51 Severe persistent asthma with (acute) exacerbation (principal); R06.03 Acute respiratory distress; Z86.14 Personal history of Methicillin resistant Staphylococcus aureus infection; Z88.6 Allergy status to analgesic agent
CPT/HCPCS: 36415; 87040; 87070; 87205; 85025; 87077; 80053; 83605; 71045; J2930; J3475; J7030; A9270 ×2; 94640; 96361; 96365; 96375; 99285; J7620

== ENCOUNTER 2019-04-26 18:17 | Emergency (ER) | payer MEDICARE, MEDICAID ==
[2019-04-26] MEDS: MAGNESIUM SULFATE/D5W 1 GM/100 ML RTUPB IV SCH ×2 (18:57→20:24)
--- NOTE | 2019-04-26 19:09 | ER Document Report ---
ED General - General Chief Complaint: Breathing Difficulty Stated Complaint: DIFFICULTY BREATHING Time Seen by Provider: 04/26/19 18:38 Primary Care Provider: WILBERTO KNOX MD [Primary Care Provider] - Follow up as needed TRAVEL OUTSIDE OF THE [place] IN LAST 30 DAYS: No - HPI Notes: Patient is a 39-year-old male with a history of asthma who presents to the emergency department via EMS for difficulty breathing. Symptoms have been ongoing for some time. He has had intermittent asthma exacerbations, was seen by his primary care provider recently. He is also seen here in the ED 2 days ago. He was started on Chantix, and Augmentin. He states he has had some improvement but things seemed worse today. He admits that he may have missed his prednisone doses for the last day or 2. He denies any fevers. No pain at this time. He states he feels overall that his breathing is much improved after treatment via ambulance. He was administered Solu-Medrol and 3 DuoNeb's [id number]. - Related Data Allergies/Adverse Reactions: tramadol Allergy (Verified 04/17/19 07:22) Home Medications: Albuterol nebulizer, Augmentin, Chantix, prednisone (which she has not taken in at least 48 hours) Past Medical History - General Information source: Patient - Social History Smoking Status: Former Smoker - Quit April 24 Family History: Reviewed & Not Pertinent, Hypertension, Other - Unobtainable Patient has suicidal ideation: No Patient has homicidal ideation: No Pulmonary Medical History: Reports: Hx Asthma, Hx Bronchitis, Hx Pneumonia Denies: Hx COPD, Hx Tuberculosis Neurological Medical History: Denies: Hx Migraine, Hx Seizures Endocrine Medical History: Denies: Hx Diabetes Mellitus Type 1, Hx Diabetes Mellitus Type 2 Psychiatric Medical History: Reports: Hx Bipolar Disorder Infectious Medical History: Reports: Hx MRSA Past Surgical History: Reports: Hx Abdominal Surgery - umbilical hernia repair, Hx Orthopedic Surgery - R clavical; tibia - Immunizations Hx Diphtheria, Pertussis, Tetanus Vaccination: Yes Hx Pneumococcal Vaccination: 02/23/11 Review of Systems - Review of Systems Constitutional: No symptoms reported EENT: No symptoms reported Cardiovascular: No symptoms reported Respiratory: See HPI Gastrointestinal: No symptoms reported Genitourinary: No symptoms reported Musculoskeletal: No symptoms reported Skin: No symptoms reported Neurological/Psychological: No symptoms reported Physical Exam - Vital signs Vitals: Pulse Ox 100 04/26/19 18:22 - Notes Notes: This is a very pleasant 39-year-old male who appears his stated age, no acute distress. Vital signs reviewed, please refer to chart. Head is normocephalic, atraumatic. Pupils equal round, reactive to light. Neck is supple without meningismus. Heart is regular rate and rhythm. Lungs reveal mildly diminished breath sounds and scant expiratory wheezes throughout. Abdomen is soft, nontender, normoactive bowel sounds throughout. Extremities without cyanosis, clubbing. Posterior calves are nontender. Peripheral pulses are equal. Skin is warm and dry. Patient is awake, alert, neurological exam is nonfocal. Course - Re-evaluation Re-evalutation: 04/26/19 19:08 Patient presents emergency department for evaluation. On arrival, the patient has a normal respiratory rate, his oxygen is 98%. His heart rate is in the 70s. He has already been given multiple DuoNeb's and steroids. Given his multiple visits to the hospital as of late, I am inclined to treat this further, he was given magnesium. We will continue to monitor. The importance of taking his prednisone as directed was stressed to the patient and he voiced understanding. We will continue to monitor. 04/26/19 20:41 I was notified by nursing the patient did not want the second gram of magnesium. I went in to evaluate the patient. His respiratory rate is 16-18. He is oxygenating at 95 to 97% on room air. His lung exam is further improved, but he does still have occasional wheezes. The patient is already on antibiotics, which I believe is appropriate. He is not showing any significant signs of pneumonia or infection at this time. The patient does not want to stay for the magnesium. I strongly advised him to fill the prescription of prednisone that I write, and take it exactly as directed. Otherwise he is to follow-up with primary care next week, and continue his efforts to quit smoking. - Vital Signs Vital signs: Temp Pulse Resp BP Pulse Ox 98.7 F 20 134/76 H 100 04/26/19 18:24 12 18:24 12 18:24 04/26/19 18:24 Discharge - Discharge Clinical Impression: Asthma exacerbation Condition: Stable Disposition: HOME, SELF-CARE Instructions: Asthma ([facility]) Additional Instructions: You have elected not to stay for the second gram of IV magnesium. This could further improve your lung exam and asthma exacerbation. Please take all of the prednisone exactly as directed, until gone, starting tomorrow. Follow-up with your doctor this week. Continue your efforts to quit smoking. If your breathing worsens, or you develop new or concerning symptoms of any sort, please return immediately to the emergency department for reevaluation. Prescriptions: Prednisone [Deltasone] 20 mg PO DAILY #20 tablet Prednisone [Deltasone 20 mg Tablet] See Protocol PO DAILY 5 Days #20 tablet Prednisone [Deltasone 20 mg Tablet] See Protocol PO DAILY 5 Days #20 tablet Referrals: WILBERTO KNOX MD [Primary Care Provider] - Follow up as needed
[2019-04-26 21:39] VITALS: BP 157/80
== END 2019-04-26 21:39 | disposition home or self-care (01) ==
LOC: ER 18:17
DX: J45.901 Unspecified asthma with (acute) exacerbation (principal); R06.02 Shortness of breath; Z87.891 Personal history of nicotine dependence
CPT/HCPCS: 99284; 96365; J3475

== ENCOUNTER 2019-05-26 04:41 | Inpatient (IN) | payer MEDICARE, MEDICAID ==
[2019-05-26] MEDS ORDERED: IPRATROPIUM/ALBUTEROL 0.5-2.5 MG/3 ML AMPUL NEB ONE (04:46)
--- NOTE | 2019-05-26 04:55 | ER Document Report ---
ED General - General Chief Complaint: Breathing Difficulty Stated Complaint: DIFFICULTY BREATHING Time Seen by Provider: 05/26/19 04:52 TRAVEL OUTSIDE OF THE [place] IN LAST 30 DAYS: No - Related Data Allergies/Adverse Reactions: tramadol Allergy (Verified 05/26/19 04:56) Past Medical History - Social History Smoking Status: Current Every Day Smoker Family History: Reviewed & Not Pertinent, Hypertension, Other - Unobtainable Pulmonary Medical History: Reports: Hx Asthma, Hx Bronchitis, Hx Pneumonia Denies: Hx COPD, Hx Tuberculosis Neurological Medical History: Denies: Hx Migraine, Hx Seizures Endocrine Medical History: Denies: Hx Diabetes Mellitus Type 1, Hx Diabetes Mellitus Type 2 Psychiatric Medical History: Reports: Hx Bipolar Disorder Infectious Medical History: Reports: Hx MRSA Past Surgical History: Reports: Hx Abdominal Surgery - umbilical hernia repair, Hx Orthopedic Surgery - R clavical; tibia - Immunizations Hx Diphtheria, Pertussis, Tetanus Vaccination: Yes Hx Pneumococcal Vaccination: 02/23/11 Physical Exam - Vital signs Vitals: Resp 23 H 05/26/19 04:45 - Notes Notes: Patient brought in by paramedics with a complaint of shortness of breath is been going on all day. Patient says he felt better for the past several days with fever cough generalized myalgias. He has had some intermittent nausea and vomiting but no abdominal pain. No diarrhea. He has been using his aerosol machine with Combivent multiple times a day with only minimal relief. Reports he developed some pain over the left anterior chest today after coughing episode. Localized increased with breathing and cough. Denies any trauma falls or heavy lifting is been no recent travel or immobilization street of DVT in the family is reports that he has had some intermittent occasional vomiting after bad coughing spell today but in between is been tolerating liquids well His medical history sent for asthma no diabetes or hypertension. Last admission was about 1 to 2 years ago social history does not smoke or drink at all. Review of systems pertinent positives and negatives in HPI otherwise all the systems were reviewed and acutely negative Pastoral care patient was given 125 mg of Solu-Medrol and 3 DuoNeb treatments he reported sats are 88% on room air PHYSICIAN EXAM -vital signs are noted triage note and note from triage reviewed GENERAL: Well-appearing, well-nourished and in __moderate respiratory distress he is able to talk in full sentences____ HEAD: Atraumatic, normocephalic. EYES: Pupils equal round and reactive to light, extraocular movements intact, sclera anicteric, conjunctiva are normal. ENT: nares patent, oropharynx clear without exudates. Dry mucous membranes. NECK: supple without lymphadenopathy LUNGS: Breath sounds noted wheezes throughout with some moderate respiratory distress. Got significant tenderness over the left anterior chest at the lower costal margin this to the left of the midline no crepitus it does reproduce the pain the rest of the chest is nontender HEART: Rapid and regular ABDOMEN: Soft, nontender, normoactive bowel sounds. EXTREMITIES: No deformity, no edema. No palpable cords NEUROLOGICAL: No focal neurological deficits. Moves all extremities spontaneously and on command. PSYCH: Normal mood, normal affect. SKIN: Warm, Dry, normal turgor, no rashes or lesions noted. BACK-nontender in the midline Differential diagnosis asthma pneumonia pleurisy Course - Re-evaluation Re-evalutation: 05/26/19 06:56 ED patient was given additional DuoNeb treatment with Pulmicort. Given IV fluids and Toradol for pain. Blood cultures were ordered. Reviewing his x-ray he was started on Levaquin and vancomycin concern for possible MRSA since he recently had flulike symptoms. This time his O2 sat started to drop initially O2. On 6 L he was still running only 90% looks fairly comfortable with a good heart rate. And an ABG and based on that patient may need BiPAP. Medical decision making patient with a history of asthma presents with exacerbation of his asthma evidence of pneumonia and hypoxia will need admission to the hospital have consulted the ICU and they have accepted the patient - Vital Signs Vital signs: Temp Pulse Resp BP Pulse Ox 15 130/75 H 97 05/26/19 05:01 05/26/19 05:01 05/26/19 05:01 - Laboratory Result Diagrams: 05/26/19 05:10 05/26/19 05:10 Laboratory results interpreted by me: 05/26/19 05/26/19 05:10 05:10 RBC 4.13 L Hgb 11.1 L Hct 32.9 L MCH 26.9 L RDW 16.3 H Lymph % (Auto) 12.6 L Potassium 3.4 L BUN 26 H Critical Care Note - Critical Care Note Total time excluding time spent on procedures (mins): 75 Discharge - Discharge Clinical Impression: Status asthmaticus Qualifiers: Asthma severity: severe Condition: Stable Disposition: ADMITTED INPATIENT Admitting Provider: Jimmie (Mill Manager) Unit Admitted: ICU
[2019-05-26] MEDS ORDERED: NORMAL SALINE 1000 ML 1,000 ML IV ONE (04:57)
[2019-05-26] MEDS ORDERED: NORMAL SALINE 500 ML IV ONE (04:57)
[2019-05-26] MEDS ORDERED: BUDESONIDE NEB 0.5 MG/2 ML AMPUL NEB ONE (04:58)
[2019-05-26] MEDS ORDERED: ALBUTEROL SULFATE 0.083% NEB 2.5 MG/3 ML AMPUL NEB ONE (04:59)
[2019-05-26] MEDS ORDERED: KETOROLAC TROMETHAMINE INJ/PF 30 MG/1 ML SDV IV ONE (05:00)
[2019-05-26] MEDS: MAGNESIUM SULFATE/D5W 1 GM/100 ML RTUPB IV SCH ×2 (05:18→05:30)
[2019-05-26 05:27] LABS: ABSOLUTE BASOPHILS # (AUTO) 0.1 10^3/uL (0.0-0.2); ABSOLUTE EOSINOPHILS # (AUTO) 0.3 10^3/uL (0.0-0.6); ABSOLUTE LYMPHOCYTES (AUTO) 0.9 10^3/uL (0.5-4.7); ABSOLUTE MONOCYTES (AUTO) 0.7 10^3/uL (0.1-1.4); ABSOLUTE NEUT (AUTO) 5.4 10^3/uL (1.7-8.2); BASOPHILS % (AUTO) 0.8 % (0-2); HEMATOCRIT 32.9 % (37.9-51.0); HEMOGLOBIN 11.1 g/dL (13.5-17.0); LYMPHOCYTES % (AUTO) 12.6 % (13-45); MEAN CORPUSCULAR HEMOGLOBIN 26.9 pg (27.0-33.4); MEAN CORPUSCULAR HGB CONC 33.7 g/dL (32.0-36.0); MEAN CORPUSCULAR VOLUME 80 fl (80-97); MONOCYTES % (AUTO) 9.8 % (3-13); PLATELET COUNT 238 10^3/uL (150-450); RED BLOOD COUNT 4.13 10^6/uL (4.35-5.55); RED CELL DISTRIBUTION WIDTH 16.3 % (11.5-14.0); SEGMENTED NEUTROPHILS % (AUTO) 72.8 % (42-78); TOTAL CELLS COUNTED % (AUTO) 100 %; WHITE BLOOD COUNT 7.4 10^3/uL (4.0-10.5)
--- NOTE | 2019-05-26 05:39 | RADIOLOGY REPORT (SQ) ---
Chest single view on 05/26/2019 at 4:57 AM CLINICAL INDICATION: Difficulty breathing COMPARISON: 04/17/2019 FINDINGS: There has been development of right greater than left lower lung opacities consistent with areas of atelectasis and/or pneumonia, consider aspiration. The lungs are otherwise clear. Cardiac, hilar and mediastinal contours are within normal limits. Pulmonary vascularity is within normal limits. An old right clavicle fracture is again noted. IMPRESSION: Developing bibasilar atelectasis and/or pneumonia, consider aspiration.
[2019-05-26 05:41] LABS: ANION GAP 14 (5-19); BLOOD UREA NITROGEN 26 mg/dL (7-20); CALCIUM 8.6 mg/dL (8.4-10.2); CARBON DIOXIDE 25 mmol/L (22-30); CHLORIDE 101 mmol/L (98-107); GLUCOSE 108 mg/dL (75-110); POTASSIUM 3.4 mmol/L (3.6-5.0)
[2019-05-26] MEDS ORDERED: LEVOFLOXACIN 750 MG/D5W RTU 750 MG/150 ML RTUPB IV ONE (06:12)
[2019-05-26] MEDS ORDERED: VANCOMYCIN HCL INJ 1000 MG VIAL IV ONE (06:21)
[2019-05-26] MEDS ORDERED: RINGERS SOLUTION,LACTATED 1,000 ML IV PRN (07:18)
[2019-05-26] MEDS ORDERED: ACETAMINOPHEN 325 MG TABLET PO PRN (07:18)
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
[2019-05-26] MEDS ORDERED: ONDANSETRON HCL INJ/PF 4 MG/2 ML SDV IV PRN (07:31)
[2019-05-26] MEDS ORDERED: MAGNESIUM HYDROXIDE SUSP 30 ML UDCUP PO PRN (07:31)
[2019-05-26] MEDS: IPRATROPIUM/ALBUTEROL 0.5-2.5 MG/3 ML AMPUL NEB SCH ×5 (08:13→23:54)
[2019-05-26 08:36] LABS: ARTERIAL BLOOD BASE EXCESS 0.7 mmol/L; ARTERIAL BLOOD FIO2 10L; ARTERIAL BLOOD H2CO3 1.37 mmol/L (1.05-1.35); ARTERIAL BLOOD HCO3 26.2 mmol/L (20-24); ARTERIAL BLOOD O2 SATURATION 95.9 % (94-98); ARTERIAL BLOOD PCO2 45.6 mmHg (35-45); ARTERIAL BLOOD PH 7.38 (7.35-7.45); ARTERIAL BLOOD PO2 82.8 mmHg (80-100); ARTERIAL BLOOD TOTAL CO2 27.6 mmol/L (23-27)
[2019-05-26] MEDS ORDERED: ENOXAPARIN SODIUM INJ 40 MG/0.4 ML DISP.SYRIN SUBCUT SCH (10:00)
[2019-05-26 10:24] LABS: A TYPE INFLUENZA AG NEGATIVE (NEGATIVE); B INFLUENZA AG NEGATIVE (NEGATIVE)
[2019-05-26] MEDS: FENTANYL CITRATE INJ/PF 100 MCG/2 ML AMPUL IV PRN ×2 (10:58→21:27)
[2019-05-26] MEDS ORDERED: OXYCODONE HCL IR 5 MG TABLET PO PRN (15:48)
[2019-05-26] MEDS ORDERED: DOCUSATE SODIUM 100 MG CAPSULE PO SCH (18:00)
[2019-05-26] MEDS: METHYLPREDNISOLONE INJ 125 MG/2 ML SDV IV SCH (21:29)
[2019-05-26] MEDS ORDERED: GABAPENTIN 300 MG CAPSULE PO SCH (22:00)
[2019-05-26] MEDS ORDERED: MONTELUKAST SODIUM 10 MG TABLET PO SCH (22:00)
[2019-05-26] MEDS ORDERED: DIPHENHYDRAMINE HCL 25 MG CAPSULE PO PRN (23:56)
[2019-05-27] MEDS: IPRATROPIUM/ALBUTEROL 0.5-2.5 MG/3 ML AMPUL NEB SCH ×2 (04:35→08:40)
[2019-05-27] MEDS: METHYLPREDNISOLONE INJ 125 MG/2 ML SDV IV SCH ×2 (05:13→05:45)
[2019-05-27] MEDS ORDERED: ALBUTEROL SULFATE 0.083% NEB 2.5 MG/3 ML AMPUL NEB ONE (05:30)
[2019-05-27 07:15] VITALS: BP 130/82
--- NOTE | 2019-05-27 07:35 | PDOC DISCHARGE SUMMARY ---
Impression - Admit/DC Date/PCP Admission Date/Primary Care Provider: 05/26/19 06:47 WILBERTO KNOX MD Discharge Date: 05/27/19 - Discharge Diagnosis (1) Tobacco abuse Is this a current diagnosis for this admission?: Yes (2) Asthma exacerbation Is this a current diagnosis for this admission?: Yes (3) Left lower lobe pneumonia Is this a current diagnosis for this admission?: Yes - Assessment Summary: This patient is a known 39 yo with a history of severe asthma. He has been fig hting an exacerbation since around 05/19 when he was exposed to a relative with the flu. The next day he felt somewhat SOB and has been battling this since. He presented with difficulty talking, some wheezing and has responded well to nebulizers,steroids and levoquin. He is still somewhat short of breath but much improved and wants to continue treatment at home. He will be sent home today. His history is significant for ARDS 2018 with a course of ecmo. For this reason, for safetey's sake, he was watched in the ICU. - Additional Information Resuscitation Status: Full Code Discharge Diet: Regular Discharge Activity: Activity As Tolerated Referrals: WILBERTO KNOX MD [Primary Care Provider] - Follow up as needed Prescriptions: Levofloxacin [Levaquin 500 mg Tablet] 500 mg PO DAILY 5 Days #5 tablet Prednisone 10 mg PO DAILY 14 Days #21 tablet Home Medications: Albuterol Sulfate [Ventolin Hfa 8 gm Mdi (1 Mdi/ER Disp)] 2 puff IH Q6HP PRN 05/26/19 Gabapentin [Neurontin 300 mg Capsule] 600 mg PO QHS 05/26/19 Ipratropium/Albuterol Sulfate [Combivent Respimat 4 gm Mdi] 1 puff IH Q6HP PRN MDD 6 PUFFS 05/26/19 Ipratropium/Albuterol Sulfate [Duoneb 3 ml Ampul] 3 ml NEB RTQ4HP PRN 05/26/19 Montelukast Sodium [Singulair 10 mg Tablet] 10 mg PO QHS 05/26/19 Levofloxacin [Levaquin 500 mg Tablet] 500 mg PO DAILY 5 Days #5 tablet 05/27/19 Prednisone 10 mg PO DAILY 14 Days #21 tablet 05/27/19 History of Present Illiness History of Present Illness: MARILIN HARRINGTON is a 39 year old male Hospital Course Hospital Course: IV levoquin, nebulizers with albuterol. Marked improvement. Much less shortness of breath. Has primary care. Physical Exam Vital Signs: Temp Pulse Resp BP Pulse Ox 98 F 91 18 136/77 H 96 05/27/19 06:03 05/27/19 06:03 05/27/19 06:03 05/27/19 06:03 05/27/19 06:03 Intake & Output 05/26/19 05/27/19 05/28/19 06:59 06:59 06:59 Intake Total 600 100 Output Total 1000 Balance 600 -900 Weight 81.647 kg 81.6 kg General appearance: PRESENT: no acute distress, cooperative, thin Head exam: PRESENT: atraumatic, normocephalic Eye exam: PRESENT: conjunctiva pink, EOMI, PERRLA. ABSENT: scleral icterus Ear exam: PRESENT: normal external ear exam Mouth exam: PRESENT: moist, tongue midline Respiratory exam: PRESENT: clear to auscultation jada, wheezes, other - Mild wheezing on L side. Good air movement. ABSENT: rales, rhonchi Pulses: PRESENT: normal dorsalis pedis pul GI/Abdominal exam: PRESENT: normal bowel sounds, soft. ABSENT: distended, guarding, mass, organolmegaly, rebound, tenderness Rectal exam: PRESENT: deferred Extremities exam: PRESENT: full ROM. ABSENT: calf tenderness, clubbing, pedal edema Musculoskeletal exam: PRESENT: ambulatory, normal inspection Neurological exam: PRESENT: alert, awake, oriented to person, oriented to place, oriented to time, oriented to situation, CN II-XII grossly intact. ABSENT: motor sensory deficit Skin exam: PRESENT: dry, intact, warm. ABSENT: cyanosis, rash Results Laboratory Results: WBC 7.4 10^3/uL (4.0-10.5) 05/26/19 05:10 RBC 4.13 10^6/uL (4.35-5.55) L 05/26/19 05:10 Hgb 11.1 g/dL (13.5-17.0) L 05/26/19 05:10 Hct 32.9 % (37.9-51.0) L 05/26/19 05:10 MCV 80 fl (80-97) 05/26/19 05:10 MCH 26.9 pg (27.0-33.4) L 05/26/19 05:10 MCHC 33.7 g/dL (32.0-36.0) 05/26/19 05:10 RDW 16.3 % (11.5-14.0) H 05/26/19 05:10 Plt Count 238 10^3/uL (150-450) 05/26/19 05:10 Lymph % (Auto) 12.6 % (13-45) L 05/26/19 05:10 Mora % (Auto) 9.8 % (3-13) 05/26/19 05:10 Eos % (Auto) 4.0 % (0-6) 05/26/19 05:10 Baso % (Auto) 0.8 % (0-2) 05/26/19 05:10 Absolute Neuts (auto) 5.4 10^3/uL (1.7-8.2) 05/26/19 05:10 Absolute Lymphs (auto) 0.9 10^3/uL (0.5-4.7) 05/26/19 05:10 Absolute Monos (auto) 0.7 10^3/uL (0.1-1.4) 05/26/19 05:10 Absolute Eos (auto) 0.3 10^3/uL (0.0-0.6) 05/26/19 05:10 Absolute Basos (auto) 0.1 10^3/uL (0.0-0.2) 05/26/19 05:10 Seg Neutrophils % 72.8 % (42-78) 05/26/19 05:10 Carbonic Acid 1.37 mmol/L (1.05-1.35) H 05/26/19 08:10 HCO3/H2CO3 Ratio 19:1 05/26/19 08:10 ABG pH 7.38 (7.35-7.45) 05/26/19 08:10 ABG pCO2 45.6 mmHg (35-45) H 05/26/19 08:10 ABG pO2 82.8 mmHg (80-100) 05/26/19 08:10 ABG HCO3 26.2 mmol/L (20-24) H 05/26/19 08:10 ABG Total CO2 27.6 mmol/L (23-27) H 05/26/19 08:10 ABG O2 Saturation 95.9 % (94-98) 05/26/19 08:10 ABG Base Excess 0.7 mmol/L 05/26/19 08:10 FiO2 10L 05/26/19 08:10 Sodium 139.7 mmol/L (137-145) 05/26/19 05:10 Potassium 3.4 mmol/L (3.6-5.0) L 05/26/19 05:10 Chloride 101 mmol/L (98-107) 05/26/19 05:10 Carbon Dioxide 25 mmol/L (22-30) 05/26/19 05:10 Anion Gap 14 (5-19) 05/26/19 05:10 BUN 26 mg/dL (7-20) H 05/26/19 05:10 Creatinine 0.93 mg/dL (0.52-1.25) 05/26/19 05:10 Est GFR ( Amer) > 60 (>60) 05/26/19 05:10 Est GFR (MDRD) Non-Af > 60 (>60) 05/26/19 05:10 Glucose 108 mg/dL (75-110) 05/26/19 05:10 Lactic Acid 0.7 mmol/L (0.7-2.1) 05/26/19 05:10 Calcium 8.6 mg/dL (8.4-10.2) 05/26/19 05:10 Influenza A (Rapid) NEGATIVE (NEGATIVE) 05/26/19 09:30 Influenza B (Rapid) NEGATIVE (NEGATIVE) 05/26/19 09:30 Impressions: Chest X-Ray 05/26/19 04:46 IMPRESSION: Developing bibasilar atelectasis and/or pneumonia, consider aspiration. Plan Health Concerns: Asthma recurrence. Plan of Treatment: Out patient treatment with inhaler, prednisone X 2 weeks, levowuin X 5 days. Goals: Back to baseline function Critical Time: 30 Level of Care: MEDICAL Stroke Is this a Stroke Patient?: No Acute Heart Failure - Is this a Heart Failure Patient?: No
[2019-05-27] MEDS ORDERED: LEVOFLOXACIN 750 MG/D5W RTU 750 MG/150 ML RTUPB IV SCH (10:00)
== END 2019-05-27 09:44 | disposition home or self-care (01) | DRG 202 ==
LOC: ER 04:41 → EH 06:47 → ICU 08:45
PROVIDERS: ADMIT Internal Medicine; ATTEND Internal Medicine
DX: J45.51 Severe persistent asthma with (acute) exacerbation (principal); J18.9 Pneumonia, unspecified organism; F17.200 Nicotine dependence, unspecified, uncomplicated; F31.9 Bipolar disorder, unspecified; Z79.51 Long term (current) use of inhaled steroids; Z88.8 Allergy status to other drugs, medicaments and biological substances; Z86.14 Personal history of Methicillin resistant Staphylococcus aureus infection
CPT/HCPCS: 36415; 71045; 80048; 82803; 83605; 85025; 87040; 87070; 87077; 87205; 87804; 94640; 96365; 96375; 99238; 99291; 99292; J1885; J1956; J2930; J3010; J3370; J3475; J7030; J7040; J7120; J7620

== ENCOUNTER 2019-06-03 12:18 | Emergency (ER) | payer MEDICARE, MEDICAID ==
[2019-06-03 12:47] VITALS: BP 109/42
[2019-06-03] MEDS ORDERED: IPRATROPIUM/ALBUTEROL 0.5-2.5 MG/3 ML AMPUL NEB ONE ×2 (12:57→14:51)
[2019-06-03] MEDS ORDERED: METHYLPREDNISOLONE INJ 125 MG/2 ML SDV IV ONE ×2 (12:57→15:12)
--- NOTE | 2019-06-03 13:02 | ER Document Report ---
ED Medical Screen (RME) - General Chief Complaint: Asthma Exacerbation Stated Complaint: BREATHING PROBLEMS Time Seen by Provider: 06/03/19 12:53 Primary Care Provider: WILBERTO KNOX MD [Primary Care Provider] - Follow up as needed TRAVEL OUTSIDE OF THE [place] IN LAST 30 DAYS: No - HPI Notes: 06/03/19 12:58 39-year-old male with a history of asthma, recent dx of pneumonia presents to the emergency room for shortness of breath and left lung pain. He was recently discharged on May 28 for bilateral pneumonia, patient finished his course of antibiotics. He was seen by his primary care provider 2 days ago, they did place him on prednisone however he is still experiencing shortness of breath. Patient is unsure if he still has pneumonia. Patient reports weakness. Symptoms are progressive. Patient has not been nebulizing at home. Denies any fevers chills, nausea vomiting diarrhea. My PET I have greeted and performed a rapid initial assessment of this patient. A comprehensive ED assessment and evaluation of the patient, analysis of test results and completion of the medical decision making process will be conducted by additional ED providers. PHYSICAL EXAMINATION: GENERAL: Well-appearing, well-nourished and in no acute distress. HEAD: Atraumatic, normocephalic. EYES: Pupils equal round extraocular movements intact, conjunctiva are normal. NECK: Normal range of motion CV: s1, s2 regular LUNGS: Wheezing heard throughout, tachypnea Musculoskeletal: Normal range of motion NEUROLOGICAL: Normal speech, normal gait. SKIN: Warm, Dry, normal turgor, no rashes or lesions noted. - Related Data Allergies/Adverse Reactions: tramadol Allergy (Verified 05/26/19 04:56) Past Medical History - Past Medical History Cardiac Medical History: Denies: Hx Congestive Heart Failure, Hx DVT Pulmonary Medical History: Reports: Hx Asthma, Hx Bronchitis, Hx Pneumonia, Hx Intubation, Hx Respiratory Failure Denies: Hx COPD, Hx Tuberculosis Neurological Medical History: Denies: Hx Migraine, Hx Seizures Endocrine Medical History: Denies: Hx Diabetes Mellitus Type 1, Hx Diabetes Mellitus Type 2 Psychiatric Medical History: Reports: Hx Bipolar Disorder Infectious Medical History: Reports: Hx MRSA Past Surgical History: Reports: Hx Abdominal Surgery - umbilical hernia repair, Hx Herniorrhaphy, Hx Orthopedic Surgery - R clavical; tibia - Immunizations Hx Diphtheria, Pertussis, Tetanus Vaccination: Yes Physical Exam - Vital signs Vitals: Temp Pulse Resp BP Pulse Ox 98 F 68 36 H 109/42 L 94 06/03/19 12:46 06/03/19 12:46 06/03/19 12:46 06/03/19 12:46 06/03/19 12:46 Course - Vital Signs Vital signs: Temp Pulse Resp BP Pulse Ox 98 F 68 36 H 109/42 L 94 06/03/19 12:46 06/03/19 12:46 06/03/19 12:46 06/03/19 12:46 06/03/19 12:46 Doctor's Discharge - Discharge Referrals: WILBERTO KNOX MD [Primary Care Provider] - Follow up as needed
[2019-06-03 13:45] LABS: HEMOGLOBIN 10.4 g/dL (13.5-17.0); MEAN CORPUSCULAR HEMOGLOBIN 26.3 pg (27.0-33.4); MEAN CORPUSCULAR HGB CONC 32.7 g/dL (32.0-36.0); MEAN CORPUSCULAR VOLUME 80 fl (80-97); PLATELET COUNT 527 10^3/uL (150-450); RED BLOOD COUNT 3.98 10^6/uL (4.35-5.55); RED CELL DISTRIBUTION WIDTH 16.6 % (11.5-14.0); WHITE BLOOD COUNT 8.1 10^3/uL (4.0-10.5)
[2019-06-03 14:03] LABS: ALBUMIN 3.2 g/dL (3.5-5.0); ALKALINE PHOSPHATASE 58 U/L (38-126); ANION GAP 7 (5-19); ASPARTATE AMINO TRANSFERASE 17 U/L (17-59); BILIRUBIN,DIRECT 0.2 mg/dL (0.0-0.4); BILIRUBIN,TOTAL 0.2 mg/dL (0.2-1.3); BLOOD UREA NITROGEN 8 mg/dL (7-20); C-REACTIVE PROTEIN 47.4 mg/L (<10.0); CALCIUM 8.8 mg/dL (8.4-10.2); CARBON DIOXIDE 29 mmol/L (22-30); CHLORIDE 103 mmol/L (98-107); GLUCOSE 100 mg/dL (75-110); POTASSIUM 3.9 mmol/L (3.6-5.0); TOTAL PROTEIN 6.3 g/dL (6.3-8.2)
--- NOTE | 2019-06-03 14:12 | RADIOLOGY REPORT (SQ) ---
EXAM DESCRIPTION: CHEST SINGLE VIEW COMPLETED DATE/TIME: 06/03/2019 1:55 pm REASON FOR STUDY: sob, hx of pna COMPARISON: 05/26/2019 EXAM PARAMETERS: NUMBER OF VIEWS: One view. TECHNIQUE: Single frontal radiographic view of the chest acquired. RADIATION DOSE: NA LIMITATIONS: None. FINDINGS: LUNGS AND PLEURA: Subsegmental airspace disease left lower lobe. Small left pleural effus ion. MEDIASTINUM AND HILAR STRUCTURES: No masses. Contour normal. HEART AND VASCULAR STRUCTURES: Heart normal in size. Normal vasculature. BONES: Old right clavicle fracture. HARDWARE: None in the chest. OTHER: No other significant finding. IMPRESSION: Left lower lobe pneumonia. No significant change. TECHNICAL DOCUMENTATION: JOB ID: [id number] [employer]- All Rights Reserved Reading location - IP/workstation name: [email or web address]
[2019-06-03 14:15] LABS: ABSOLUTE LYMPHOCYTES# (MANUAL) 1.5 10^3/uL (0.5-4.7); ABSOLUTE MONOCYTES # (MANUAL) 0.6 10^3/uL (0.1-1.4); BASOPHILS % (MANUAL) 0 % (0-2); EOSINOPHILS % (MANUAL) 5 % (0-6); LYMPHOCYTES % (MANUAL) 18 % (13-45); MONOCYTES % (MANUAL) 7 % (3-13); SEGMENTED NEUTROPHILS % (MAN) 70 % (42-78); TOTAL CELLS COUNTED 100
[2019-06-03 14:17] LABS: ANISOCYTOSIS 1+; PLATELET COMMENT INCREASED; POIKILOCYTOSIS SLIGHT; POLYCHROMASIA SLIGHT; TARGET CELLS SLIGHT
[2019-06-03] MEDS ORDERED: CEFTRIAXONE 1 GM/D5W RTU 1 GM/50 ML RTUPB IV ONE (15:30)
[2019-06-03] MEDS ORDERED: AZITHROMYCIN INJ 500 MG VIAL IV ONE (15:36)
--- NOTE | 2019-06-03 22:00 | EKG REPORT ---
SEVERITY:- NORMAL ECG - SINUS RHYTHM : Confirmed by: Rosalina Hannah 03-Jun-2019 21:59:32
== END 2019-06-03 15:55 | disposition left against medical advice (07) ==
LOC: ER 12:18
DX: J45.901 Unspecified asthma with (acute) exacerbation (principal); Z86.14 Personal history of Methicillin resistant Staphylococcus aureus infection
CPT/HCPCS: 93005; 94640; 99281; 36415; 87040; 85025; 86140; 80053; 84484; 71045; 93010; A9270; J7620

== ENCOUNTER 2019-07-04 19:44 | Inpatient (IN) | payer MEDICARE, MEDICAID ==
[2019-07-04] MEDS ORDERED: IPRATROPIUM/ALBUTEROL 0.5-2.5 MG/3 ML AMPUL NEB ONE ×2 (19:59→21:50)
[2019-07-04] MEDS ORDERED: NORMAL SALINE 1000 ML 1,000 ML IV ONE ×2 (20:00→20:14)
[2019-07-04] MEDS ORDERED: ALBUTEROL SULFATE 0.083% NEB 2.5 MG/3 ML AMPUL NEB ONE (20:13)
[2019-07-04 20:34] LABS: ABSOLUTE BASOPHILS # (AUTO) 0.1 10^3/uL (0.0-0.2); ABSOLUTE EOSINOPHILS # (AUTO) 0.8 10^3/uL (0.0-0.6); ABSOLUTE LYMPHOCYTES (AUTO) 1.3 10^3/uL (0.5-4.7); ABSOLUTE MONOCYTES (AUTO) 0.4 10^3/uL (0.1-1.4); ABSOLUTE NEUT (AUTO) 3.3 10^3/uL (1.7-8.2); BASOPHILS % (AUTO) 1.3 % (0-2); EOSINOPHILS % (AUTO) 13.4 % (0-6); HEMATOCRIT 34.9 % (37.9-51.0); HEMOGLOBIN 11.6 g/dL (13.5-17.0); LYMPHOCYTES % (AUTO) 22.5 % (13-45); MEAN CORPUSCULAR HEMOGLOBIN 26.4 pg (27.0-33.4); MEAN CORPUSCULAR HGB CONC 33.2 g/dL (32.0-36.0); MEAN CORPUSCULAR VOLUME 80 fl (80-97); MONOCYTES % (AUTO) 6.3 % (3-13); PLATELET COUNT 282 10^3/uL (150-450); RED BLOOD COUNT 4.39 10^6/uL (4.35-5.55); RED CELL DISTRIBUTION WIDTH 17.8 % (11.5-14.0); SEGMENTED NEUTROPHILS % (AUTO) 56.5 % (42-78); TOTAL CELLS COUNTED % (AUTO) 100 %; WHITE BLOOD COUNT 5.8 10^3/uL (4.0-10.5)
[2019-07-04 20:52] LABS: ALBUMIN 3.7 g/dL (3.5-5.0); ALKALINE PHOSPHATASE 54 U/L (38-126); ASPARTATE AMINO TRANSFERASE 25 U/L (17-59); BILIRUBIN,TOTAL 0.1 mg/dL (0.2-1.3); BLOOD UREA NITROGEN 11 mg/dL (7-20); CALCIUM 8.6 mg/dL (8.4-10.2); CHLORIDE 105 mmol/L (98-107); CREATINE KINASE 293 U/L (55-170); GLUCOSE 129 mg/dL (75-110); POTASSIUM 4.1 mmol/L (3.6-5.0); TOTAL PROTEIN 6.3 g/dL (6.3-8.2)
--- NOTE | 2019-07-04 20:55 | RADIOLOGY REPORT (SQ) ---
EXAM DESCRIPTION: [facility]: XR CHEST 1 VIEW CLINICAL HISTORY: 39 years Male; Asthma exacerbation, hypoxia; COMPARISON: 06/03/2019 FINDINGS: Lungs are clear, with no focal infiltrate, pneumothorax, or pleural effusion. No pulmonary nodules. Mediastinum is within normal limits for this positioning. Bony structures are unremarkable. IMPRESSION: 1. No acute pulmonary findings.
[2019-07-04 20:58] LABS: CARBON DIOXIDE 31 mmol/L (22-30)
[2019-07-04] MEDS ORDERED: LORAZEPAM INJ 2 MG/1 ML VIAL IV ONE (20:58)
[2019-07-04 20:59] LABS: ANION GAP 3 (5-19)
--- NOTE | 2019-07-04 22:29 | ER Document Report ---
Entered by SHADE HILL SCRIBE 07/04/192010 Acting as scribe for:ANTOINE GREENE IV, MD ED General - General Chief Complaint: Shortness Of Breath Stated Complaint: DIFFICULTY BREATHING Time Seen by Provider: 07/04/19 20:07 Mode of Arrival: Medic Information source: Emergency Med Personnel Notes: This 39 year old male patient brought in by EMS presents to the ED today with complaints of sudden onset shortness of breath dyspnea that started around 1400- 1430 today. EMS reports that the patient received Mag Sulfate 2gm IV, Solumedrol 125mg IV, and Albuterol 10mg neb en route. Patient states that he used MDI without relief and that he has been intubated in the past for his asthma symptoms. Patient was recently discharged from here on 05/28/2019 for bilateral pneumonia. Patient is distracted by technology during exam. TRAVEL OUTSIDE OF THE [place] IN LAST 30 DAYS: No - Related Data Allergies/Adverse Reactions: tramadol Allergy (Verified 05/26/19 04:56) Past Medical History - General Information source: Patient, [facility] Records - Social History Smoking Status: Unknown if Ever Smoked Cigarette use (# per day): No Chew tobacco use (# tins/day): No Smoking Education Provided: No Family History: Reviewed & Not Pertinent, Hypertension Pulmonary Medical History: Reports: Hx Asthma, Hx Bronchitis, Hx Pneumonia, Hx Intubation, Hx Respiratory Failure Psychiatric Medical History: Reports: Hx Bipolar Disorder Infectious Medical History: Reports: Hx MRSA Past Surgical History: Reports: Hx Herniorrhaphy - Umbilical hernia, Hx Orthopedic Surgery - R clavicle; tibia - Immunizations Hx Diphtheria, Pertussis, Tetanus Vaccination: Yes Hx Pneumococcal Vaccination: 02/23/11 Review of Systems - Review of Systems Constitutional: No symptoms reported EENT: No symptoms reported Cardiovascular: See HPI, Dyspnea Respiratory: See HPI, Short of breath Gastrointestinal: No symptoms reported Genitourinary: No symptoms reported Male Genitourinary: No symptoms reported Musculoskeletal: No symptoms reported Skin: No symptoms reported Hematologic/Lymphatic: No symptoms reported Neurological/Psychological: No symptoms reported -: Yes All other systems reviewed and negative Physical Exam - Vital signs Vitals: Resp 20 07/04/19 19:55 - General General appearance: Anxious, Other - Distracted by technology. - HEENT Head: Normocephalic, Atraumatic Eyes: Normal Pupils: PERRL - Respiratory Respiratory status: Respiratory distress - on NC Chest status: Nontender Breath sounds: No: Wheezing Chest palpation: Normal - Cardiovascular Rhythm: Regular Heart sounds: Normal auscultation Murmur: No - Abdominal Inspection: Normal Distension: No distension Bowel sounds: Normal Tenderness: Nontender Organomegaly: No organomegaly - Back Back: Normal, Nontender - Extremities General upper extremity: Normal inspection General lower extremity: Normal inspection - Neurological Neuro grossly intact: Yes - Psychological Associated symptoms: Anxious - Skin Skin Temperature: Warm Skin Moisture: Dry Skin Color: Normal Course - Vital Signs Vital signs: Temp Pulse Resp BP Pulse Ox 98.0 F 16 142/82 H 98 07/04/19 20:01 07/05/19 03:01 07/05/19 03:01 07/05/19 03:01 - Laboratory Result Diagrams: 07/04/19 20:20 07/04/19 20:20 Laboratory results interpreted by me: 07/04/19 07/04/19 07/04/19 20:20 20:20 23:25 Hgb 11.6 L Hct 34.9 L MCH 26.4 L RDW 17.8 H Eos % (Auto) 13.4 H Absolute Eos (auto) 0.8 H ABG pO2 56.7 L ABG HCO3 24.9 H ABG O2 Saturation 88.8 L Carbon Dioxide 31 H Anion Gap 3 L Glucose 129 H Total Bilirubin 0.1 L Creatine Kinase 293 H 07/05/19 01:30 Hgb Hct MCH RDW Eos % (Auto) Absolute Eos (auto) ABG pO2 ABG HCO3 24.2 H ABG O2 Saturation Carbon Dioxide Anion Gap Glucose Total Bilirubin Creatine Kinase - Consults DR. JAMAL WOODSON Time consulted: 00:41 Reason for consultation: 07/05/19 00:42 STATUS ASTHMATICUS Consulted provider: will see as inpatient Critical Care Note - Critical Care Note Total time excluding time spent on procedures (mins): 120 Discharge - Discharge Clinical Impression: Hypoxia Status asthmaticus Qualifiers: Asthma severity: unspecified severity Asthma persistence: persistent Qualified Code(s): J45.902 - Unspecified asthma with status asthmaticus Condition: Good Disposition: ADMITTED INPATIENT Admitting Provider: Thiago (Hospitalist) Unit Admitted: IMCU I personally performed the services described in the documentation, reviewed and edited the documentation which was dictated to the scribe in my presence, and it accurately records my words and actions.
[2019-07-04] MEDS ORDERED: HYDROMORPHONE HCL INJ/PF 2 MG/ML AMPULE IV ONE (22:33)
[2019-07-04] MEDS ORDERED: ONDANSETRON HCL INJ/PF 4 MG/2 ML SDV IV ONE (22:34)
[2019-07-04 23:40] LABS: ARTERIAL BLOOD BASE EXCESS -0.5 mmol/L; ARTERIAL BLOOD H2CO3 1.31 mmol/L (1.05-1.35); ARTERIAL BLOOD HCO3 24.9 mmol/L (20-24); ARTERIAL BLOOD O2 SATURATION 88.8 % (94-98); ARTERIAL BLOOD PCO2 43.5 mmHg (35-45); ARTERIAL BLOOD PH 7.38 (7.35-7.45); ARTERIAL BLOOD PO2 56.7 mmHg (80-100); ARTERIAL BLOOD TOTAL CO2 26.2 mmol/L (23-27)
[2019-07-04 23:41] LABS: ARTERIAL BLOOD FIO2 ROOM AIR
[2019-07-05] MEDS ORDERED: MAGNESIUM HYDROXIDE SUSP 30 ML UDCUP PO PRN (01:36)
[2019-07-05] MEDS ORDERED: PROMETHAZINE HCL INJ 25 MG/1 ML VIAL IV PRN (01:36)
[2019-07-05] MEDS ORDERED: MAG HYDROX/AL HYDROX/SIMETH SUSP 30 ML UDCUP PO PRN (01:36)
[2019-07-05] MEDS ORDERED: MORPHINE SULFATE 10 MG/ML INJ IV PRN (01:41)
[2019-07-05] MEDS ORDERED: ACETAMINOPHEN 325 MG TABLET PO PRN (01:41)
[2019-07-05] MEDS ORDERED: LORAZEPAM INJ 2 MG/1 ML VIAL IV PRN (01:43)
[2019-07-05 01:53] LABS: ARTERIAL BLOOD BASE EXCESS -1.1 mmol/L; ARTERIAL BLOOD HCO3 24.2 mmol/L (20-24); ARTERIAL BLOOD O2 SATURATION 97.2 % (94-98); ARTERIAL BLOOD PCO2 43.1 mmHg (35-45); ARTERIAL BLOOD PH 7.37 (7.35-7.45); ARTERIAL BLOOD PO2 97.4 mmHg (80-100); ARTERIAL BLOOD TOTAL CO2 25.6 mmol/L (23-27)
[2019-07-05 01:55] LABS: ARTERIAL BLOOD FIO2 6L
[2019-07-05] MEDS: LEVALBUTEROL HCL NEB 0.63 MG/3 ML AMPUL NEB PRN ×2 (02:20→04:26)
[2019-07-05] MEDS ORDERED: ALBUTEROL SULFATE 0.083% NEB 2.5 MG/3 ML AMPUL NEB ONE (02:21)
[2019-07-05] MEDS ORDERED: METHYLPREDNISOLONE INJ 40 MG/1 ML SDV IV SCH (02:30)
[2019-07-05 04:46] VITALS: BP 120/54
[2019-07-05] MEDS ORDERED: HEPARIN SOD (PORCINE) 5,000 UNIT/ML 1 ML VIAL SUBCUT SCH (06:00)
--- NOTE | 2019-07-05 06:24 | PDOC H&P ---
History of Present Illness Admission Date/PCP: 07/05/2019 00:30 WILBERTO KNOX MD Patient complains of: Dyspnea History of Present Illness: MARILIN HARRINGTON is a 39 year old male who presented to the ER with acute dyspnea. He admits initially moderate dyspnea of sudden onset about 2 PM 07/04/2019 the symptoms steadily increased to very severe over the next several hours despite use of his home inhalers. His dyspnea was accompanied progressively worsening wheezing and his dyspnea worsened with exertion. He denies other associated or accompanying signs or symptoms. He admits prior similar episodes due to his asthma. He has not identified any additional aggravating or ameliorating factors for his dyspnea. In the ER the patient showed mild improvement with nebulizer treatments, IV fluids, IV magnesium sulfate and IV steroids. He remained in moderate respiratory distress and required supplemental oxygen to maintain an adequate O2 saturation. He was subsequently admitted for further evaluation and treatment. Past Medical History Cardiac Medical History: Denies: Atrial Fibrillation, Congestive Heart Failure, Coronary Artery Dis ease, DVT, Myocardial Infarction, Hyperlipidema, Hypertension Pulmonary Medical History: Reports: Asthma, Bronchitis, Intubation, Pneumonia, Respiratory Failure Denies: Chronic Obstructive Pulmonary Disease (COPD), Sleep Apnea, Tuberculosis EENT Medical History: Denies: Cataracts, Ears - Hearing aids Neurological Medical History: Denies: Hemorrhagic CVA, Ischemic CVA, Migraine, Seizures Endocrine Medical History: Denies: Diabetes Mellitus Type 1, Diabetes Mellitus Type 2, Hyperthyroidism, Hypothyroidism, Obesity Renal/ Medical History: Denies: Chronic Kidney Disease, Nephrolithiasis Malignancy Medical History: Reports: None GI Medical History: Denies: Cirrhosis, Crohn's Disease, Gastroesophageal Reflux Disease, Hepatitis, Hiatal Hernia, Peptic Ulcer Disease, Ulcerative Colitis Musculoskeltal Medical History: Denies: Arthritis, Gout Skin Medical History: Denies: Eczema, Psoriasis Psychiatric Medical History: Reports: Bipolar Disorder, Substance Abuse Denies: Alcohol Dependency, Tobacco Dependency Traumatic Medical History: Reports: None Hematology: Denies: Anemia, Bleeding Tendencies Infectious Medical History: Reports: Methicillin-Resistant Staph Aureus Past Surgical History Past Surgical History: Reports: Herniorrhaphy - Umbilical hernia, Orthopedic Surgery - R clavicle; tibia Social History Information Source: Patient Lives with: Spouse/Significant other Smoking Status: Never Smoker Electronic Cigarette use?: No Frequency of Alcohol Use: Occasional Hx Recreational Drug Use: Yes Drugs: Cocaine, Marijuana Hx Prescription Drug Abuse: No - Advance Directive Resuscitation Status: Full Code Surrogate healthcare decision maker:: Luci Adam Family History Family History: Hypertension. denies: CAD, DM, Malignancy Parental Family History Reviewed: Yes Children Family History Reviewed: No Sibling(s) Family History Reviewed.: Yes Medication/Allergy Home Medications: Albuterol Sulfate [Ventolin Hfa 8 gm Mdi (1 Mdi/ER Disp)] 2 puff IH Q6HP PRN 05/26/19 Gabapentin [Neurontin 300 mg Capsule] 600 mg PO QHS 05/26/19 Ipratropium/Albuterol Sulfate [Combivent Respimat 4 gm Mdi] 1 puff IH Q6HP PRN MDD 6 PUFFS 05/26/19 Ipratropium/Albuterol Sulfate [Duoneb 3 ml Ampul] 3 ml NEB RTQ4HP PRN 05/26/19 Montelukast Sodium [Singulair 10 mg Tablet] 10 mg PO QHS 05/26/19 Levofloxacin [Levaquin 500 mg Tablet] 500 mg PO DAILY 5 Days #5 tablet 05/27/19 Prednisone 10 mg PO DAILY 14 Days #21 tablet 05/27/19 Allergies/Adverse Reactions: tramadol Allergy (Verified 05/26/19 04:56) Review of Systems Constitutional: ABSENT: chills, fever(s) Eyes: ABSENT: visual disturbances, other - eye pain Ears: ABSENT: hearing changes, other - ear pain Nose, Mouth, and Throat: ABSENT: headache(s), mouth pain, sore throat Cardiovascular: PRESENT: dyspnea on exertion. ABSENT: chest pain, palpitations Respiratory: PRESENT: dyspnea. ABSENT: cough Gastrointestinal: ABSENT: abdominal pain, constipation, diarrhea, nausea, vomiting Genitourinary: ABSENT: difficulty urinating, dysuria, hematuria Musculoskeletal: ABSENT: back pain, joint swelling, muscle weakness Integumentary: ABSENT: pruritus, rash Neurological: ABSENT: confusion, convulsions, focal weakness, memory loss, syncope Psychiatric: ABSENT: anxiety, depression Endocrine: ABSENT: cold intolerance, heat intolerance, polydipsia, polyphagia, polyuria Hematologic/Lymphatic: ABSENT: easy bleeding, easy bruising Allergic/Immunologic: ABSENT: seasonal rhinorrhea Physical Exam Vital Signs: Temp Pulse Resp BP Pulse Ox 98.0 F 21 H 154/89 H 88 L 07/04/19 20:01 07/04/19 23:01 07/04/19 23:01 07/04/19 23:01 Intake & Output 07/03/19 07/04/19 07/05/19 23:59 23:59 23:59 Intake Total 1000 Balance 1000 Weight 84 kg General appearance: PRESENT: cooperative, mild distress - due to dyspnea Head exam: PRESENT: atraumatic, normocephalic Eye exam: PRESENT: conjunctiva pink. ABSENT: conjunctival injection, scleral icterus Ear exam: PRESENT: normal external ear exam. ABSENT: bleeding, drainage Mouth exam: PRESENT: dry mucosa, neck supple Neck exam: ABSENT: thyromegaly, tracheal deviation Respiratory exam: PRESENT: accessory muscle use, decreased breath sounds - minimal air movement, prolonged expiratory phas - moderately prolonged expiratory phase, retraction - mild chest wall and supraclaviular retractions, symmetrical, tachypnea, wheezes - high pitched end-expiratory wheezes Cardiovascular exam: PRESENT: RRR, tachycardia. ABSENT: clicks, gallop, rubs Pulses: PRESENT: normal radial pulses, normal dorsalis pedis pul Vascular exam: PRESENT: normal capillary refill. ABSENT: pallor GI/Abdominal exam: PRESENT: normal bowel sounds, soft. ABSENT: tenderness Rectal exam: PRESENT: deferred Extremities exam: ABSENT: joint swelling, pedal edema Musculoskeletal exam: ABSENT: deformity, dislocation Neurological exam: PRESENT: alert, oriented to person, oriented to place, oriented to time, oriented to situation, CN II-XII grossly intact. ABSENT: motor sensory deficit Psychiatric exam: PRESENT: appropriate affect, normal mood Skin exam: PRESENT: dry, intact, warm. ABSENT: jaundice, rash, urticaria Results Laboratory Results: 07/04/19 20:20 07/04/19 20:20 07/04/19 07/04/19 07/04/19 20:20 20:20 23:25 WBC 5.8 RBC 4.39 Hgb 11.6 L Hct 34.9 L MCV 80 MCH 26.4 L MCHC 33.2 RDW 17.8 H Plt Count 282 Seg Neutrophils % 56.5 Carbonic Acid 1.31 HCO3/H2CO3 Ratio 19:1 ABG pH 7.38 ABG pCO2 43.5 ABG pO2 56.7 L ABG HCO3 24.9 H ABG O2 Saturation 88.8 L ABG Base Excess -0.5 FiO2 ROOM AIR Sodium 139.0 Potassium 4.1 Chloride 105 Carbon Dioxide 31 H Anion Gap 3 L BUN 11 Creatinine 0.86 Est GFR ( Amer) > 60 Glucose 129 H Calcium 8.6 Total Bilirubin 0.1 L AST 25 Alkaline Phosphatase 54 Total Protein 6.3 Albumin 3.7 07/04/19 20:20 Creatine Kinase 293 H Impressions: Chest X-Ray 07/04/19 19:59 IMPRESSION: 1. No acute pulmonary findings. Assessment and Plan - Diagnosis (1) Asthma exacerbation Qualifiers: Asthma severity: moderate Asthma persistence: persistent Qualified Code(s): J45.41 - Moderate persistent asthma with (acute) exacerbation Is this a current diagnosis for this admission?: Yes (2) Asthma with status asthmaticus in adult Qualifiers: Asthma severity: moderate Asthma persistence: persistent Qualified Code(s): J45.42 - Moderate persistent asthma with status asthmaticus Is this a current diagnosis for this admission?: Yes (3) Acute respiratory failure with hypoxia Is this a current diagnosis for this admission?: Yes (4) Polysubstance abuse Is this a current diagnosis for this admission?: Yes - Plan Summary Summary: The patient will be admitted to the medical floor where he will receive routine supportive and symptomatic cares. He will be treated with an aggressive pulmonary toilet utilizing Xopenex, Pulmicort and Atrovent delivered via nebulizer. He will receive IV steroids utilizing Solu-Medrol 40 mg q. 6 hours x 3 doses. He will receive supplemental oxygen as required to maintain adequate oxygen saturation. He will use morphine sulfate 2 mg IV every 1 hour PRN severe dyspnea. He will use lorazepam 1 mg IV every 4 hours as needed for anxiety or agitation. Routine laboratory follow-up evaluations will be obtained. - Time Time Spent with patient: 15-24 minutes Medications reviewed and adjusted accordingly: Yes Anticipated discharge: Home - Inpatient Certification Based on my medical assessment, after consideration of the patient's comorbidities, presenting symptoms, or acuity I expect that the services needed warrant INPATIENT care.: Yes I certify that my determination is in accordance with my understanding of Medicare's requirements for reasonable and necessary INPATIENT services [42 CFR 412.3e].: Yes Medical Necessity: Need Close Monitoring Due to Risk of Patient Decompensation, Need for Nebulizer Therapy and Monitoring of Response, Risk of Complication if Not Cared For in Hospital
[2019-07-05] MEDS ORDERED: BUDESONIDE NEB 0.5 MG/2 ML AMPUL NEB SCH (08:00)
[2019-07-05] MEDS ORDERED: IPRATROPIUM BROMIDE 0.02% NEB 0.5 MG/2.5 ML AMPUL NEB SCH (08:00)
[2019-07-05] MEDS ORDERED: LEVALBUTEROL HCL NEB 1.25 MG/3 ML AMPUL NEB SCH (08:00)
[2019-07-05] MEDS ORDERED: DOCUSATE SODIUM 100 MG CAPSULE PO SCH (10:00)
[2019-07-05] MEDS ORDERED: FAMOTIDINE 20 MG TABLET PO SCH (10:00)
--- NOTE | 2019-07-05 10:23 | Left Against Medical Advice ---
Against Medical Advice Admission Date/Time: 07/05/19 02:05 Primary Care Provider: WILBERTO KNOX MD Date of Patient Emigration: 07/05/19 - Diagnosis: (1) Acute respiratory failure with hypoxia Is this a current diagnosis for this admission?: Yes (3) Polysubstance abuse Is this a current diagnosis for this admission?: Yes (4) Status asthmaticus Is this a current diagnosis for this admission?: Yes - Summary: Summary: Please see Admission and Progress Notes as well. MARILIN HARRINGTON is a 39 M, who LEFT AGAINST MEDICAL ADVICE. The Patient was admitted on 07/05/19 02:05. I went up to see the patient this morning and we talked about his oxygen demand that was requiring 6 L of nasal cannula. I told him since he was wanting to go home we will try him on room air and then reassess him after we see what his saturation drops to. Patient however signed out AMA prior to this. Did tell me the reason he came in was he drove a vehicle to [place] yesterday and was so short of breath that he could not hardly function and felt weak. Signed out AMA this morning
--- NOTE | 2019-07-05 13:27 | EKG REPORT ---
SEVERITY:- BORDERLINE ECG - SINUS RHYTHM PROBABLE LEFT ATRIAL ABNORMALITY : Confirmed by: Corona Sadler MD 05-Jul-2019 13:27:21
[2019-07-05] MEDS ORDERED: MONTELUKAST SODIUM 10 MG TABLET PO SCH (22:00)
== END 2019-07-05 09:01 | disposition left against medical advice (07) | DRG 189 ==
LOC: ER 19:44 → EH 07-05 02:05 → 3S 07-05 03:38
PROVIDERS: ADMIT Emergency Medicine; ATTEND Emergency Medicine
DX: J96.01 Acute respiratory failure with hypoxia (principal); J45.42 Moderate persistent asthma with status asthmaticus; J45.41 Moderate persistent asthma with (acute) exacerbation; F31.9 Bipolar disorder, unspecified; F19.10 Other psychoactive substance abuse, uncomplicated; Z86.14 Personal history of Methicillin resistant Staphylococcus aureus infection; Z79.51 Long term (current) use of inhaled steroids; Z79.52 Long term (current) use of systemic steroids; Z79.899 Other long term (current) drug therapy
CPT/HCPCS: 36415; 71045; 80053; 82550; 82803; 84443; 85025; 93005; 93010; 94640; 96361; 96374; 99291; 99292; J2060; J2920; J3490; J7030; J7614; J7620

== ENCOUNTER 2019-08-25 10:48 | Emergency (ER) | payer MEDICARE, MEDICAID ==
--- NOTE | 2019-08-25 11:55 | ER Document Report ---
ED General - General Chief Complaint: Respiratory Distress Stated Complaint: DIFFICULTY BREATHING Time Seen by Provider: 08/25/19 11:15 Primary Care Provider: WILBERTO KNOX MD [Primary Care Provider] - Follow up as needed Mode of Arrival: Medic Information source: Patient TRAVEL OUTSIDE OF THE [place] IN LAST 30 DAYS: No - HPI Notes: Patient presents by EMS for shortness of breath. He states he feels much better now after receiving supplemental oxygen steroids and breathing treatments. He states he has had no known coronavirus exposures. He has had no known travel and has not been out of his house recently. He states he has been out of inhalers and steroids at home. He states he does still smoke cigarettes and ma rijuana. He has had no fevers. He has had shortness of breath. It is worse with exertion and better with rest. It is been moderate to severe. It has been intermittent. It is been going on for 2 to 3 days. He has had a cough that is been mainly nonproductive. - Related Data Allergies/Adverse Reactions: tramadol Allergy (Verified 08/25/19 10:51) Past Medical History - General Information source: Patient - Social History Smoking Status: Current Every Day Smoker Chew tobacco use (# tins/day): No Frequency of alcohol use: None Drug Abuse: Marijuana Family History: Hypertension. denies: CAD, DM, Malignancy Patient has suicidal ideation: No Patient has homicidal ideation: No - Past Medical History Cardiac Medical History: Denies: Hx Atrial Fibrillation, Hx Congestive Heart Failure, Hx Coronary Artery Disease, Hx DVT, Hx Heart Attack, Hx Hypercholesterolemia, Hx Hypertension Pulmonary Medical History: Reports: Hx Asthma, Hx Bronchitis, Hx Pneumonia, Hx Intubation, Hx Respiratory Failure Denies: Hx COPD, Hx Sleep Apnea, Hx Tuberculosis Neurological Medical History: Denies: Hx Migraine, Hx Seizures Endocrine Medical History: Denies: Hx Diabetes Mellitus Type 1, Hx Diabetes Mellitus Type 2, Hx Hyperthyroidism, Hx Hypothyroidism GI Medical History: Denies: Hx Cirrhosis, Hx Crohn's Disease, Hx Gastroesophageal Reflux Disease, Hx Hepatitis, Hx Hiatal Hernia, Hx Ulcerative Colitis Musculoskeletal Medical History: Denies Hx Arthritis, Denies Hx Gout Skin Medical History: Denies Hx Eczema, Denies Hx Psoriasis Psychiatric Medical History: Reports: Hx Bipolar Disorder Denies: Hx Depression Infectious Medical History: Reports: Hx MRSA. Denies: Hx Hepatitis Past Surgical History: Reports: Hx Abdominal Surgery - umbilical hernia repair, Hx Herniorrhaphy - Umbilical hernia, Hx Orthopedic Surgery - R clavicle; tibia - Immunizations Hx Diphtheria, Pertussis, Tetanus Vaccination: Yes Hx Pneumococcal Vaccination: 02/23/11 Review of Systems - Review of Systems Constitutional: Malaise. denies: Chills, Fever Cardiovascular: Palpitations. denies: Chest pain Respiratory: Cough, Short of breath -: Yes All other systems reviewed and negative Physical Exam - Vital signs Vitals: Resp Pulse Ox 15 97 08/25/19 10:59 08/25/19 10:59 Interpretation: Normal - General General appearance: Appears well, Alert - HEENT Head: Normocephalic, Atraumatic Eyes: Normal Pupils: PERRL - Respiratory Respiratory status: No respiratory distress Chest status: Nontender Breath sounds: Wheezing Chest palpation: Normal - Cardiovascular Rhythm: Regular Heart sounds: Normal auscultation Murmur: No - Abdominal Inspection: Normal Distension: No distension Bowel sounds: Normal Tenderness: Nontender Organomegaly: No organomegaly - Back Back: Normal, Nontender - Extremities General upper extremity: Normal inspection, Nontender, Normal color, Normal ROM, Normal temperature General lower extremity: Normal inspection, Nontender, Normal color, Normal ROM, Normal temperature, Normal weight bearing. No: Teressa's sign - Neurological Neuro grossly intact: Yes Cognition: Normal Orientation: AAOx4 [place] Coma Scale Eye Opening: Spontaneous [place] Coma Scale Verbal: Oriented [place] Coma Scale Motor: Obeys Commands [place] Coma Scale Total: 15 Speech: Normal Motor strength normal: LUE, RUE, LLE, RLE Sensory: Normal - Psychological Associated symptoms: Normal affect, Normal mood - Skin Skin Temperature: Warm Skin Moisture: Dry Skin Color: Normal Course - Re-evaluation Re-evalutation: 08/25/19 13:48 Patient has been in the emergency department for approximately 3 hours. Heart rate is now 89. Oxygen saturation is 96% on room air. Blood pressure is 124/84. He has no coronavirus risk factors. I am going to send the patient home with steroids and a prescription for an inhaler. I am going to recommend that he practices self-isolation for the next 14 days given his history of cough and shortness of breath. He would I feel this is definitely most likely due to asthma in the area of this pandemic it seems most prudent to have him self isolate. - Vital Signs Vital signs: Temp Pulse Resp BP Pulse Ox 17 124/84 97 08/25/19 13:01 08/25/19 13:00 08/25/19 13:01 - Diagnostic Test Radiology reviewed: Image reviewed, Reports reviewed - EKG Interpretation by Me EKG shows normal: Sinus rhythm Rate: Normal - 88 Rhythm: NSR [place]/QRS: No: Right axis deviation, Left axis deviation Discharge - Discharge Clinical Impression: Acute asthma exacerbation Qualifiers: Asthma severity: moderate Asthma persistence: persistent Qualified Code(s): J45.41 - Moderate persistent asthma with (acute) exacerbation Condition: Stable Disposition: HOME, SELF-CARE Instructions: Asthma ([facility]) Prescriptions: Prednisone [Deltasone 20 mg Tablet] 60 mg PO DAILY 5 Days tablet Albuterol Sulfate [Ventolin Hfa 8 gm Mdi (1 Mdi/ER Disp)] 2 puff IH ASDIR PRN #1 inhaler PRN Reason: Referrals: WILBERTO KNOX MD [Primary Care Provider] - Follow up tomorrow
--- NOTE | 2019-08-25 14:02 | RADIOLOGY REPORT (SQ) ---
EXAM DESCRIPTION: CHEST SINGLE VIEW IMAGES COMPLETED DATE/TIME: 08/25/2019 1:53 pm REASON FOR STUDY: sob COMPARISON: None. EXAM PARAMETERS: NUMBER OF VIEWS: One view. TECHNIQUE: Single frontal radiographic view of the chest acquired. RADIATION DOSE: NA LIMITATIONS: None. FINDINGS: LUNGS AND PLEURA: Minimal right mid lung linear opacity, likely scarring. No focal consol idation, pleural effusion or pneumothorax. MEDIASTINUM AND HILAR STRUCTURES: No masses. Contour normal. HEART AND VASCULAR STRUCTURES: Heart normal in size. Normal vasculature. BONES: No acute findings. HARDWARE: None in the chest. OTHER: No other significant finding. IMPRESSION: No evidence of acute cardiopulmonary process. Minimal right mid lung scarring. TECHNICAL DOCUMENTATION: JOB ID: [id number] 2010 [employer]- All Rights Reserved Reading location - IP/workstation name: [email or web address]
[2019-08-25] MEDS ORDERED: IPRATROPIUM/ALBUTEROL 0.5-2.5 MG/3 ML AMPUL NEB ONE (14:04)
[2019-08-25 14:20] VITALS: BP 137/90
--- NOTE | 2019-08-26 09:30 | EKG REPORT ---
SEVERITY:- NORMAL ECG - SINUS RHYTHM ST ELEV, PROBABLE NORMAL EARLY REPOL PATTERN : Confirmed by: Rosalina Hannah 26-Aug-2019 09:29:53
== END 2019-08-25 14:15 | disposition home or self-care (01) ==
LOC: ER 10:48
DX: J45.41 Moderate persistent asthma with (acute) exacerbation (principal); R06.02 Shortness of breath; R05 Cough; R53.81 Other malaise; R00.2 Palpitations; F17.200 Nicotine dependence, unspecified, uncomplicated; Z87.01 Personal history of pneumonia (recurrent); Z88.6 Allergy status to analgesic agent
CPT/HCPCS: 93005; 94640; 99285; 96360; 71045; 93010; A9270; J7620

== ENCOUNTER 2020-02-15 06:07 | Inpatient (IN) | payer MEDICARE, MEDICAID ==
[2020-02-15] MEDS ORDERED: MAGNESIUM SULFATE/D5W 2 GM/200 ML RTUPB IV ONE (06:24)
[2020-02-15] MEDS ORDERED: NORMAL SALINE 1000 ML 1,000 ML IV ONE (06:26)
[2020-02-15] MEDS: MAGNESIUM SULFATE/D5W 1 GM/100 ML RTUPB IV SCH ×3 (06:36→13:54)
--- NOTE | 2020-02-15 06:57 | ER Document Report ---
Entered by DEVON MILLER SCRIBE 02/15/20 0625 Acting as scribe for:VICENTE DOCKERY MD ED Respiratory Problem - General Stated Complaint: DIFFICULTY BREATHING Time Seen by Provider: 02/15/20 06:15 Mode of Arrival: Ambulatory Information source: Patient Notes: This 39 year old male patient presents to the emergency department today with complaints of shortness of breath with a productive cough with green/yellow sputum. EMS reports that when they arrived on scene the patient had an oxygen saturation of 90% and they gave 1 albuterol treatment, 2 DuoNeb's, and 125 mg Solu-Medrol. He reports being short of breath for the last 2 weeks and he has run out of his nebulizer medication for an unclear amount of time. TRAVEL OUTSIDE OF THE [place] IN LAST 30 DAYS: No - Related Data Allergies/Adverse Reactions: tramadol Allergy (Verified 08/25/19 10:51) Past Medical History - General Information source: [facility] Records - Social History Smoking Status: Never Smoker Cigarette use (# per day): No Family History: Reviewed & Not Pertinent, Hypertension Pulmonary Medical History: Reports: Hx Asthma, Hx Bronchitis, Hx Pneumonia, Hx Intubation, Hx Respiratory Failure Psychiatric Medical History: Reports: Hx Bipolar Disorder Infectious Medical History: Reports: Hx MRSA Past Surgical History: Reports: Hx Abdominal Surgery - umbilical hernia repair, Hx Herniorrhaphy - Umbilical hernia, Hx Orthopedic Surgery - R clavicle; tibia - Immunizations Hx Diphtheria, Pertussis, Tetanus Vaccination: Yes Hx Pneumococcal Vaccination: 02/23/11 Review of Systems - Review of Systems Constitutional: No symptoms reported EENT: No symptoms reported Cardiovascular: No symptoms reported Respiratory: See HPI, Short of breath, Wheezing Gastrointestinal: No symptoms reported Genitourinary: No symptoms reported Male Genitourinary: No symptoms reported Musculoskeletal: No symptoms reported Skin: No symptoms reported Hematologic/Lymphatic: No symptoms reported Neurological/Psychological: No symptoms reported -: Yes All other systems reviewed and negative Physical Exam - Vital signs Vitals: Pulse Ox 89 L 02/15/20 06:12 - Notes Notes: Physical Exam: General: Sleepy but arousable, frequently falls asleep saturating 96% on a non- rebreather, he was titrated down to 4L and encouraged to talk, take deep breaths, and cough and he still has a saturation of 96%. HEENT: Normocephalic. Atraumatic. PERRL. Extraocular movements intact. Oropharynx clear. Neck: Supple. Non-tender. Respiratory: Moderate respiratory distress. Wheezing and rhonchi diffusely bilaterally with retractions. Cardiovascular: Regular rate and rhythm. Abdominal: Normal Inspection. Non-tender. No distension. Normal Bowel Sounds. Back: No gross abnormalities. Extremities: Moves all four extremities. Upper extremities: Normal inspection. Normal ROM. Lower extremities: Normal inspection. No edema. Normal ROM. Neurological: Normal cognition. AAOx4. Normal speech. Psychological: Normal affect. Normal Mood. Skin: Warm. Dry. Normal color. Course - Vital Signs Vital signs: Temp Pulse Resp BP Pulse Ox 98.0 F 79 20 121/98 H 100 02/15/20 06:25 02/15/20 14:00 02/15/20 12:00 02/15/20 10:45 02/15/20 12:00 - Laboratory Result Diagrams: 02/15/20 06:43 02/15/20 06:43 Laboratory results interpreted by me: 02/15/20 02/15/20 02/15/20 06:43 06:43 06:55 WBC 12.0 H Hgb 12.2 L Hct 37.1 L MCH 26.4 L RDW 15.0 H Seg Neuts % (Manual) 90 H Lymphocytes % (Manual) 9 L Monocytes % (Manual) 1 L Abs Neuts (Manual) 10.8 H Carbonic Acid 1.53 H ABG pCO2 50.7 H ABG pO2 75.6 L ABG HCO3 29.1 H ABG Total CO2 30.7 H BUN 31 H Glucose 150 H Magnesium 3.0 H - Diagnostic Test Radiology reviewed: Image reviewed, Reports reviewed - Chest x-ray does not show acute cardiopulmonary process. - EKG Interpretation by Ct EKG shows normal: Sinus rhythm, Wilder, Intervals, QRS Complexes, ST-T Waves Rate: Normal - 86 Rhythm: NSR When compared to previous EKG there are: No significant change - Consults Dr. Allen Time consulted: 09:35 Consulted provider: will come to ER Critical Care Note - Critical Care Note Total time excluding time spent on procedures (mins): 35 Comments: At least 35 minutes spent evaluating patient, reviewing prior records, discussing the patient with the EMS crew that brought him in, reviewing current labs and x-rays, starting the patient on BiPAP after he failed to improve with magnesium, fluids, and nebulizer treatments. Time spent discussing the patient with the hospitalist service to affect an admission. Discharge - Discharge Clinical Impression: Acute severe exacerbation of asthma Condition: Fair Disposition: ADMITTED INPATIENT Admitting Provider: Tiffany (Hospitalist) Unit Admitted: IM I personally performed the services described in the documentation, reviewed and edited the documentation which was dictated to the scribe in my presence, and it accurately records my words and actions.
[2020-02-15 07:03] LABS: HEMATOCRIT 37.1 % (37.9-51.0); HEMOGLOBIN 12.2 g/dL (13.5-17.0); MEAN CORPUSCULAR HEMOGLOBIN 26.4 pg (27.0-33.4); MEAN CORPUSCULAR VOLUME 80 fl (80-97); PLATELET COUNT 242 10^3/uL (150-450); RED BLOOD COUNT 4.63 10^6/uL (4.35-5.55)
[2020-02-15 07:13] LABS: ARTERIAL BLOOD H2CO3 1.53 mmol/L (1.05-1.35); ARTERIAL BLOOD HCO3 29.1 mmol/L (20-24); ARTERIAL BLOOD O2 SATURATION 94.7 % (94-98); ARTERIAL BLOOD PCO2 50.7 mmHg (35-45); ARTERIAL BLOOD PH 7.38 (7.35-7.45); ARTERIAL BLOOD PO2 75.6 mmHg (80-100); ARTERIAL BLOOD TOTAL CO2 30.7 mmol/L (23-27)
[2020-02-15 07:16] LABS: ARTERIAL BLOOD FIO2 45%
[2020-02-15 07:19] LABS: ALBUMIN 3.9 g/dL (3.5-5.0); ALKALINE PHOSPHATASE 71 U/L (38-126); ANION GAP 7 (5-19); ASPARTATE AMINO TRANSFERASE 20 U/L (17-59); BILIRUBIN,DIRECT 0.3 mg/dL (0.0-0.4); BILIRUBIN,TOTAL 0.5 mg/dL (0.2-1.3); BLOOD UREA NITROGEN 31 mg/dL (7-20); CALCIUM 9.1 mg/dL (8.4-10.2); CARBON DIOXIDE 30 mmol/L (22-30); CHLORIDE 103 mmol/L (98-107); CREATINE KINASE 122 U/L (55-170); GLUCOSE 150 mg/dL (75-110); POTASSIUM 4.6 mmol/L (3.6-5.0); TOTAL PROTEIN 6.5 g/dL (6.3-8.2)
[2020-02-15] MEDS ORDERED: ALBUTEROL SULFATE 0.083% NEB 2.5 MG/3 ML AMPUL NEB ONE (07:26)
--- NOTE | 2020-02-15 07:28 | RADIOLOGY REPORT (SQ) ---
CLINICAL HISTORY: status asthma COMPARISON: 08/25/2019. TECHNIQUE: XR CHEST 1 VIEW 02/15/2020 6:26 AM CDT FINDINGS: Cardiac silhouette is normal in size. Lungs are clear without consolidation, atelectasis, mass or edema. There is no pleural effusion. There is no pneumothorax. There are no acute osseous findings. IMPRESSION: Clear lungs.
[2020-02-15 07:48] LABS: ABSOLUTE LYMPHOCYTES# (MANUAL) 1.1 10^3/uL (0.5-4.7); ABSOLUTE MONOCYTES # (MANUAL) 0.1 10^3/uL (0.1-1.4); BASOPHILS % (MANUAL) 0 % (0-2); EOSINOPHILS % (MANUAL) 0 % (0-6); LYMPHOCYTES % (MANUAL) 9 % (13-45); MONOCYTES % (MANUAL) 1 % (3-13); SEGMENTED NEUTROPHILS % (MAN) 90 % (42-78); TOTAL CELLS COUNTED 100
[2020-02-15 07:49] LABS: ANISOCYTOSIS 1+; HYPOCHROMASIA SLIGHT
[2020-02-15 07:50] LABS: OVALOCYTES SLIGHT; PLATELET COMMENT ADEQUATE; POIKILOCYTOSIS SLIGHT
--- NOTE | 2020-02-15 08:34 | EKG REPORT ---
SEVERITY:- NORMAL ECG - SINUS RHYTHM : Confirmed by: Pamella Garza MD 15-Feb-2020 08:33:45
[2020-02-15] MEDS ORDERED: TEMAZEPAM 7.5 MG CAPSULE PO PRN (10:29)
[2020-02-15] MEDS ORDERED: IPRATROPIUM/ALBUTEROL 0.5-2.5 MG/3 ML AMPUL NEB PRN (10:29)
[2020-02-15] MEDS ORDERED: ONDANSETRON HCL INJ/PF 4 MG/2 ML SDV IV PRN (10:29)
[2020-02-15] MEDS ORDERED: ACETAMINOPHEN 325 MG TABLET PO PRN (10:29)
[2020-02-15] MEDS ORDERED: IPRATROPIUM BROMIDE 0.02% NEB 0.5 MG/2.5 ML AMPUL NEB PRN (10:45)
--- NOTE | 2020-02-15 10:47 | PDOC H&P ---
History of Present Illness Admission Date/PCP: 02/15/20 10:10 WILBERTO KNOX MD Patient complains of: Came in with complaints of difficulty in breathing. History of Present Illness: MARILIN HARRINGTON is a 39 year old male from bronchial asthma ran out of the edications came in with complaints of shortness of breath for the last few days. He ran out of the medications. In the emergency room he was found to be tachypneic tachycardic and pulse oxes are in the 80s. He was placed on BiPAP. Chest x-ray was within normal limits. Patient was given a albuterol nebulizations, IV magnesium medical consult was called for admission. Plan is to check for COVID-19 at this time. Past Medical History Cardiac Medical History: Denies: Atrial Fibrillation, Congestive Heart Failure, Coronary Artery Disease, DVT, Myocardial Infarction, Hyperlipidema, Hypertension Pulmonary Medical History: Reports: Asthma, Bronchitis, Intubation, Pneumonia, Respiratory Failure Denies: Chronic Obstructive Pulmonary Disease (COPD), Sleep Apnea, Tuberculosis Neurological Medical History: Denies: Migraine, Seizures Endocrine Medical History: Denies: Diabetes Mellitus Type 1, Diabetes Mellitus Type 2, Hyperthyroidism, Hypothyroidism GI Medical History: Denies: Cirrhosis, Crohn's Disease, Gastroesophageal Reflux Disease, Hepat itis, Hiatal Hernia, Ulcerative Colitis Musculoskeltal Medical History: Denies: Arthritis, Gout Skin Medical History: Denies: Eczema, Psoriasis Psychiatric Medical History: Reports: Bipolar Disorder Denies: Depression Hematology: Denies: Anemia, Bleeding Tendencies Infectious Medical History: Reports: Methicillin-Resistant Staph Aureus Past Surgical History Past Surgical History: Reports: Herniorrhaphy - Umbilical hernia, Orthopedic Surgery - R clavicle; tibia Social History Smoking Status: Never Smoker Electronic Cigarette use?: No Frequency of Alcohol Use: Occasional Hx Recreational Drug Use: Yes Drugs: Cocaine, Marijuana Hx Prescription Drug Abuse: No - Advance Directive Resuscitation Status: Full Code Family History Family History: Reviewed & Not Pertinent, Hypertension Parental Family History Reviewed: Yes - Hypertension Children Family History Reviewed: Yes Sibling(s) Family History Reviewed.: Yes Medication/Allergy Home Medications: Albuterol Sulfate [Ventolin Hfa 8 gm Mdi (1 Mdi/ER Disp)] 2 puff IH ASDIR PRN #1 inhaler 08/25/19 Prednisone [Deltasone 20 mg Tablet] 60 mg PO DAILY 5 Days tablet 08/25/19 Allergies/Adverse Reactions: tramadol Allergy (Verified 08/25/19 10:51) Review of Systems Constitutional: PRESENT: fatigue, weakness. ABSENT: fever(s), headache(s), night sweats Eyes: ABSENT: visual disturbances Ears: ABSENT: hearing changes Nose, Mouth, and Throat: ABSENT: sore throat Cardiovascular: PRESENT: dyspnea on exertion, palpitations. ABSENT: orthropnea Respiratory: PRESENT: cough, dyspnea, other - Coughing up yellow sputum. Integumentary: ABSENT: rash, wounds Neurological: ABSENT: abnormal gait, abnormal speech, confusion, dizziness, focal weakness, syncope Psychiatric: ABSENT: anxiety, depression, homidical ideation, suicidal ideation Physical Exam Vital Signs: Temp Pulse Resp BP Pulse Ox 98.0 F 22 H 127/87 H 91 L 02/15/20 06:25 02/15/20 10:15 02/15/20 10:15 02/15/20 10:15 Intake & Output 02/14/20 02/15/20 02/16/20 06:59 06:59 06:59 Intake Total 1200 Balance 1200 Weight 95.254 kg General appearance: PRESENT: well-developed, other - Moderate distress. On BiPAP. Eye exam: PRESENT: conjunctival injection, PERRLA Mouth exam: PRESENT: moist, tongue midline Teeth exam: PRESENT: poor dentation Neck exam: ABSENT: carotid bruit, JVD, lymphadenopathy, thyromegaly Respiratory exam: PRESENT: accessory muscle use, decreased breath sounds, wheezes Cardiovascular exam: PRESENT: tachycardia GI/Abdominal exam: PRESENT: normal bowel sounds, soft. ABSENT: distended, guarding, mass, organolmegaly, rebound, tenderness Rectal exam: PRESENT: deferred Extremities exam: PRESENT: full ROM. ABSENT: calf tenderness, clubbing, pedal edema Neurological exam: PRESENT: alert, awake, oriented to person, oriented to place, oriented to time, oriented to situation, CN II-XII grossly intact. ABSENT: motor sensory deficit Psychiatric exam: PRESENT: appropriate affect, normal mood. ABSENT: homicidal ideation, suicidal ideation Results Laboratory Results: 02/15/20 06:43 02/15/20 06:43 02/15/20 02/15/20 02/15/20 06:43 06:43 06:55 WBC 12.0 H RBC 4.63 Hgb 12.2 L Hct 37.1 L MCV 80 MCH 26.4 L MCHC 33.0 RDW 15.0 H Plt Count 242 Seg Neutrophils % Not Reportable Carbonic Acid 1.53 H HCO3/H2CO3 Ratio 19:1 ABG pH 7.38 ABG pCO2 50.7 H ABG pO2 75.6 L ABG HCO3 29.1 H ABG O2 Saturation 94.7 ABG Base Excess 3.0 FiO2 45% Sodium 140.1 Potassium 4.6 Chloride 103 Carbon Dioxide 30 Anion Gap 7 BUN 31 H Creatinine 1.13 Est GFR ( Amer) > 60 Glucose 150 H Calcium 9.1 Magnesium 3.0 H Total Bilirubin 0.5 AST 20 Alkaline Phosphatase 71 Total Protein 6.5 Albumin 3.9 02/15/20 02/15/20 06:43 06:43 Creatine Kinase 122 Troponin I < 0.012 Impressions: Chest X-Ray 02/15/20 06:26 IMPRESSION: Clear lungs. Assessment and Plan - Diagnosis (1) Acute severe exacerbation of asthma Is this a current diagnosis for this admission?: Yes Plan: 02/15/2020-patient is going to be admitted to [facility] for acute exacerbation of asthma. Will be admitted as inpatient. To continue DuoNeb nebulizations. To provide BiPAP support. Started on IV Rocephin 1 g daily. COVID-19 will be tested. Patient was given IV magnesium in the emergency room. Plan is to check the ABG on daily basis. On IV Ativan 1 mg every 4 hours as needed for agitation. GI prophylaxis DVT prophylaxis initiated. (2) Acute respiratory failure with hypoxia Is this a current diagnosis for this admission?: Yes Plan: 02/15/2020-patient came in with acute respiratory with hypoxia requiring BiPAP. Most likely secondary to acute asthma exacerbation. His he also indicates hypercapnia. - Time Anticipated Discharge Disposition: Home, Self Care Anticipated Discharge Timeframe: within 48 hours
[2020-02-15] MEDS: LORAZEPAM INJ 2 MG/1 ML VIAL IV PRN ×2 (11:39→21:50)
[2020-02-15] MEDS: METHYLPREDNISOLONE INJ 125 MG/2 ML SDV IV SCH ×2 (13:58→21:50)
[2020-02-15] MEDS ORDERED: ALBUTEROL SULFATE HFA (90 MCG/PUFF) 8 GM MDI (1 MDI/ER DISP) IH PRN (16:41)
[2020-02-15] MEDS ORDERED: ALBUTEROL SULFATE HFA (90 MCG/PUFF) 8 GM MDI IH PRN (16:55)
[2020-02-15] MEDS: MONTELUKAST SODIUM 10 MG TABLET PO SCH (17:05)
[2020-02-15] MEDS: OXYCODONE-ACETAMINOPHEN 5-325 MG TABLET PO PRN (17:05)
[2020-02-15] MEDS: NORMAL SALINE 1000 ML 1,000 ML IV PRN (17:34)
[2020-02-15] MEDS ORDERED: DOCUSATE SODIUM 100 MG/10 ML UDC PO SCH (18:00)
[2020-02-15] MEDS ORDERED: (PENDING PHARMACY ID) (Fluticasone/Salmeterol 1 PUFF) IH SCH (18:00)
[2020-02-15] MEDS ORDERED: (PENDING PHARMACY ID) (Ipratropium/Albuterol Sulfate [Combivent Respimat 4 Gm Mdi] 1 PUFF) IH SCH (18:00)
[2020-02-15] MEDS: DOCUSATE SODIUM 100 MG CAPSULE PO SCH (18:31)
[2020-02-15 19:04] LABS: APPEARANCE,URINE CLEAR; BILIRUBIN,URINE NEGATIVE (NEGATIVE); COLOR,URINE YELLOW; GLUCOSE, URINE NEGATIVE (NEGATIVE); KETONES,URINE NEGATIVE (NEGATIVE); LEUKOCYTE ESTERASE,URINE NEGATIVE (NEGATIVE); NITRITE,URINE NEGATIVE (NEGATIVE); PROTEIN,URINE NEGATIVE (NEGATIVE); URINE SPECIFIC GRAVITY 1.028; UROBILINOGEN,URINE NEGATIVE mg/dL (<2.0)
[2020-02-15 19:28] LABS: URINE AMPHETAMINES SCREEN NEGATIVE; URINE BARBITURATES SCREEN NEGATIVE; URINE COCAINE SCREEN NEGATIVE; URINE MARIJUANA (THC) SCREEN NEGATIVE; URINE METHADONE SCREEN NEGATIVE; URINE PHENCYCLIDINE SCREEN NEGATIVE
[2020-02-15 19:31] LABS: URINE BENZODIAZEPINES SCREEN UNCONFIRMED POSITIVE
[2020-02-15] MEDS: FAMOTIDINE INJ/PF 20 MG/2 ML SDV IV SCH (21:50)
[2020-02-16] MEDS: LORAZEPAM INJ 2 MG/1 ML VIAL IV PRN (03:34)
[2020-02-16 05:40] LABS: ALBUMIN 3.4 g/dL (3.5-5.0); ALKALINE PHOSPHATASE 58 U/L (38-126); ANION GAP 7 (5-19); ASPARTATE AMINO TRANSFERASE 17 U/L (17-59); BILIRUBIN,DIRECT 0.3 mg/dL (0.0-0.4); BILIRUBIN,TOTAL 0.5 mg/dL (0.2-1.3); BLOOD UREA NITROGEN 33 mg/dL (7-20); CALCIUM 8.7 mg/dL (8.4-10.2); CARBON DIOXIDE 29 mmol/L (22-30); CHLORIDE 104 mmol/L (98-107); GLUCOSE 137 mg/dL (75-110); INTERNATIONAL RATION (INR) 1.04; POTASSIUM 5.1 mmol/L (3.6-5.0); PROTHROMBIN TIME 13.8 SEC (11.4-15.4); TOTAL PROTEIN 5.9 g/dL (6.3-8.2)
[2020-02-16 05:42] LABS: HEMATOCRIT 34.6 % (37.9-51.0); HEMOGLOBIN 11.4 g/dL (13.5-17.0); MEAN CORPUSCULAR HEMOGLOBIN 26.1 pg (27.0-33.4); MEAN CORPUSCULAR HGB CONC 32.8 g/dL (32.0-36.0); MEAN CORPUSCULAR VOLUME 80 fl (80-97); PLATELET COUNT 234 10^3/uL (150-450); RED BLOOD COUNT 4.34 10^6/uL (4.35-5.55); RED CELL DISTRIBUTION WIDTH 14.9 % (11.5-14.0); WHITE BLOOD COUNT 13.9 10^3/uL (4.0-10.5)
[2020-02-16 05:47] LABS: ABSOLUTE LYMPHOCYTES# (MANUAL) 0.4 10^3/uL (0.5-4.7); ABSOLUTE MONOCYTES # (MANUAL) 0.4 10^3/uL (0.1-1.4); BASOPHILS % (MANUAL) 0 % (0-2); EOSINOPHILS % (MANUAL) 0 % (0-6); LYMPHOCYTES % (MANUAL) 3 % (13-45); MONOCYTES % (MANUAL) 3 % (3-13); SEGMENTED NEUTROPHILS % (MAN) 94 % (42-78); TOTAL CELLS COUNTED 100
[2020-02-16 05:48] LABS: ANISOCYTOSIS SLIGHT; HYPOCHROMASIA SLIGHT; PLATELET COMMENT ADEQUATE
[2020-02-16 05:49] LABS: OVALOCYTES SLIGHT; POIKILOCYTOSIS SLIGHT
[2020-02-16] MEDS: IPRATROPIUM/ALBUTEROL 0.5-2.5 MG/3 ML AMPUL NEB SCH ×3 (06:08→14:37)
[2020-02-16] MEDS: METHYLPREDNISOLONE INJ 125 MG/2 ML SDV IV SCH ×3 (06:10→22:05)
[2020-02-16] MEDS: NORMAL SALINE 1000 ML 1,000 ML IV PRN ×2 (06:15→17:40)
[2020-02-16] MEDS ORDERED: IPRATROPIUM/ALBUTEROL 0.5-2.5 MG/3 ML AMPUL NEB SCH (09:00)
--- NOTE | 2020-02-16 09:56 | PDOC PROGRESS REPORT ---
Subjective Progress Note for:: 02/16/20 Subjective:: 39 year old male from bronchial asthma ran out of the medications came in with complaints of shortness of breath for the last few days. He ran out of the medications. In the emergency room he was found to be tachypneic tachycardic and pulse oxes are in the 80s. He was placed on BiPAP. Chest x-ray was within normal limits. Patient was given a albuterol nebulizations, IV magnesium medical consult was called for admission. Plan is to check for COVID-19 at this time. [id number]-old male with history of bronchial asthma came to the emergency room with complaints of severe shortness of breath and extensive wheezing. Patient is presently on IV Solu-Medrol, DuoNeb nebulizations. COVID- 19 is pending at this time. No acute events in the last 24 hours. Afebrile. Reason For Visit: ASTHMA EXACERBATION Physical Exam Vital Signs: Temp Pulse Resp BP Pulse Ox 97.8 F 90 18 79/57 L 95 02/16/20 08:20 02/16/20 09:13 02/16/20 09:13 02/16/20 08:20 02/16/20 09:13 Intake & Output 02/15/20 02/16/20 02/17/20 06:59 06:59 06:59 Intake Total 2151 Balance 2151 Weight 95.254 kg 93.3 kg General appearance: PRESENT: mild distress, well-developed Head exam: PRESENT: atraumatic Eye exam: PRESENT: PERRLA Ear exam: PRESENT: normal external ear exam Mouth exam: PRESENT: neck supple Teeth exam: PRESENT: poor dentation Neck exam: ABSENT: carotid bruit, JVD, lymphadenopathy, thyromegaly Respiratory exam: PRESENT: decreased breath sounds, wheezes Cardiovascular exam: PRESENT: RRR. ABSENT: diastolic murmur, rubs, systolic murmur GI/Abdominal exam: PRESENT: normal bowel sounds, soft. ABSENT: distended, guarding, mass, organolmegaly, rebound, tenderness Rectal exam: PRESENT: deferred Extremities exam: PRESENT: full ROM. ABSENT: calf tenderness, clubbing, pedal edema Neurological exam: PRESENT: alert, awake, oriented to person, oriented to place, oriented to time, oriented to situation, CN II-XII grossly intact. ABSENT: motor sensory deficit Psychiatric exam: PRESENT: appropriate affect, normal mood. ABSENT: homicidal ideation, suicidal ideation Results Laboratory Results: 02/16/20 04:49 02/16/20 04:49 02/15/20 02/16/20 02/16/20 18:46 04:49 04:49 WBC 13.9 H RBC 4.34 L Hgb 11.4 L Hct 34.6 L MCV 80 MCH 26.1 L MCHC 32.8 RDW 14.9 H Plt Count 234 Seg Neutrophils % Not Reportable Sodium 139.7 Potassium 5.1 H Chloride 104 Carbon Dioxide 29 Anion Gap 7 BUN 33 H Creatinine 1.09 Est GFR ( Amer) > 60 Glucose 137 H Calcium 8.7 Total Bilirubin 0.5 AST 17 Alkaline Phosphatase 58 Total Protein 5.9 L Albumin 3.4 L Lipase 16.7 L TSH Urine Color YELLOW Urine Appearance CLEAR Urine pH 5.0 Ur Specific [place] 1.028 Urine Protein NEGATIVE Urine Glucose (UA) NEGATIVE Urine Ketones NEGATIVE Urine Blood NEGATIVE Urine Nitrite NEGATIVE Ur Leukocyte Esterase NEGATIVE Urine WBC (Auto) 0 Urine RBC (Auto) 1 02/16/20 04:49 WBC RBC Hgb Hct MCV MCH MCHC RDW Plt Count Seg Neutrophils % Sodium Potassium Chloride Carbon Dioxide Anion Gap BUN Creatinine Est GFR ( Amer) Glucose Calcium Total Bilirubin AST Alkaline Phosphatase Total Protein Albumin Lipase TSH < 0.01 L Urine Color Urine Appearance Urine pH Ur Specific [place] Urine Protein Urine Glucose (UA) Urine Ketones Urine Blood Urine Nitrite Ur Leukocyte Esterase Urine WBC (Auto) Urine RBC (Auto) 02/15/20 02/15/20 02/16/20 06:43 06:43 04:49 Creatine Kinase 122 Troponin I < 0.012 NT-Pro-B Natriuret Pep 220 H Impressions: Chest X-Ray 02/15/20 06:26 IMPRESSION: Clear lungs. Assessment and Plan - Diagnosis (1) Acute severe exacerbation of asthma Is this a current diagnosis for this admission?: Yes Plan: 02/15/2020-patient is going to be admitted to [facility] for acute exacerbation of asthma. Will be admitted as inpatient. To continue DuoNeb nebulizations. To provide BiPAP support. Started on IV Rocephin 1 g daily. COVID-19 will be tested. Patient was given IV magnesium in the emergency room. Plan is to check the ABG on daily basis. On IV Ativan 1 mg every 4 hours as needed for agitation. GI prophylaxis DVT prophylaxis initiated. 02/16/2020-patient is receiving IV Solu-Medrol, DuoNeb nebulizations. COVID-19 is pending. Plan is to continue the present management at this time. Chest x- ray is negative for pneumonia. (2) Acute respiratory failure with hypoxia Is this a current diagnosis for this admission?: Yes Plan: 02/15/2020-patient came in with acute respiratory with hypoxia requiring BiPAP. Most likely secondary to acute asthma exacerbation. His he also indicates hypercapnia. 02/16/2020-patient admitted with acute respiratory failure with hypoxia and hypercapnia. Presently on oxygen supplementations via nasal cannula. Plan is to continue IV Solu-Medrol, DuoNeb nebulizations, albuterol inhalations. - Time Anticipated Discharge Disposition: Home, Self Care Anticipated Discharge Timeframe: within 48 hours
[2020-02-16] MEDS ORDERED: (PENDING PHARMACY ID) (Tiotropium Bromide [Spiriva Respimat] 2 PUFF) IH SCH (10:00)
[2020-02-16] MEDS: DOCUSATE SODIUM 100 MG CAPSULE PO SCH ×2 (10:18→19:34)
[2020-02-16] MEDS: FAMOTIDINE INJ/PF 20 MG/2 ML SDV IV SCH ×2 (10:18→22:06)
[2020-02-16] MEDS: CETIRIZINE 10 MG TABLET PO SCH (10:18)
[2020-02-16] MEDS: ENOXAPARIN SODIUM INJ 40 MG/0.4 ML DISP.SYRIN SUBCUT SCH (10:18)
[2020-02-16] MEDS: CEFTRIAXONE 1 GM/D5W RTU 1 GM/50 ML RTUPB IV SCH (10:21)
[2020-02-16] MEDS: FLUTICASONE/VILANTEROL 200-25 MCG/DOSE IH SCH (10:22)
[2020-02-16] MEDS: UMECLIDINIUM BROMIDE 62.5 MCG/DOSE IH SCH (10:22)
[2020-02-16 11:26] LABS: ARTERIAL BLOOD BASE EXCESS 2.9 mmol/L; ARTERIAL BLOOD H2CO3 1.63 mmol/L (1.05-1.35); ARTERIAL BLOOD HCO3 29.5 mmol/L (20-24); ARTERIAL BLOOD O2 SATURATION 93.3 % (94-98); ARTERIAL BLOOD PCO2 54.1 mmHg (35-45); ARTERIAL BLOOD PH 7.35 (7.35-7.45); ARTERIAL BLOOD TOTAL CO2 31.1 mmol/L (23-27)
[2020-02-16 11:29] LABS: ARTERIAL BLOOD FIO2 6L
[2020-02-16] MEDS ORDERED: IPRATROPIUM/ALBUTEROL 0.5-2.5 MG/3 ML AMPUL NEB PRN (15:39)
[2020-02-16] MEDS ORDERED: BUDESONIDE NEB 0.5 MG/2 ML AMPUL NEB PRN (15:41)
[2020-02-16] MEDS: MONTELUKAST SODIUM 10 MG TABLET PO SCH (19:35)
[2020-02-16] MEDS ORDERED: BUDESONIDE NEB 0.5 MG/2 ML AMPUL NEB SCH (20:00)
[2020-02-16] MEDS: OXYCODONE-ACETAMINOPHEN 5-325 MG TABLET PO PRN (23:28)
[2020-02-17] MEDS: LORAZEPAM INJ 2 MG/1 ML VIAL IV PRN ×2 (02:26→06:44)
[2020-02-17] MEDS: METHYLPREDNISOLONE INJ 125 MG/2 ML SDV IV SCH (05:21)
[2020-02-17 05:36] LABS: HEMATOCRIT 35.7 % (37.9-51.0); HEMOGLOBIN 11.4 g/dL (13.5-17.0); MEAN CORPUSCULAR HEMOGLOBIN 25.9 pg (27.0-33.4); MEAN CORPUSCULAR VOLUME 81 fl (80-97); PLATELET COUNT 242 10^3/uL (150-450); RED BLOOD COUNT 4.41 10^6/uL (4.35-5.55); WHITE BLOOD COUNT 12.7 10^3/uL (4.0-10.5)
[2020-02-17 05:51] LABS: ALBUMIN 3.3 g/dL (3.5-5.0); ALKALINE PHOSPHATASE 54 U/L (38-126); ANION GAP 8 (5-19); ASPARTATE AMINO TRANSFERASE 20 U/L (17-59); BILIRUBIN,DIRECT 0.3 mg/dL (0.0-0.4); BILIRUBIN,TOTAL 0.3 mg/dL (0.2-1.3); BLOOD UREA NITROGEN 39 mg/dL (7-20); CALCIUM 8.7 mg/dL (8.4-10.2); CARBON DIOXIDE 29 mmol/L (22-30); CHLORIDE 103 mmol/L (98-107); GLUCOSE 138 mg/dL (75-110); TOTAL PROTEIN 5.8 g/dL (6.3-8.2)
[2020-02-17 05:52] LABS: POTASSIUM 4.6 mmol/L (3.6-5.0)
[2020-02-17 06:16] LABS: ABSOLUTE LYMPHOCYTES# (MANUAL) 0.3 10^3/uL (0.5-4.7); ABSOLUTE MONOCYTES # (MANUAL) 0.3 10^3/uL (0.1-1.4); BAND NEUTROPHILS % (MANUAL) 1 % (3-5); BASOPHILS % (MANUAL) 0 % (0-2); EOSINOPHILS % (MANUAL) 0 % (0-6); LYMPHOCYTES % (MANUAL) 2 % (13-45); MONOCYTES % (MANUAL) 2 % (3-13); SEGMENTED NEUTROPHILS % (MAN) 95 % (42-78); TOTAL CELLS COUNTED 100
[2020-02-17 06:17] LABS: ANISOCYTOSIS SLIGHT; OVALOCYTES SLIGHT; POIKILOCYTOSIS SLIGHT; SCHISTOCYTES SLIGHT; TOXIC GRANULATION SLIGHT
[2020-02-17 06:18] LABS: PLATELET COMMENT ADEQUATE
[2020-02-17] MEDS: NORMAL SALINE 1000 ML 1,000 ML IV PRN (06:22)
[2020-02-17 08:29] VITALS: BP 130/60
[2020-02-17] MEDS: OXYCODONE-ACETAMINOPHEN 5-325 MG TABLET PO PRN (08:29)
[2020-02-17] MEDS: DOCUSATE SODIUM 100 MG CAPSULE PO SCH (09:29)
[2020-02-17] MEDS: CETIRIZINE 10 MG TABLET PO SCH (09:34)
[2020-02-17] MEDS: FLUTICASONE/VILANTEROL 200-25 MCG/DOSE IH SCH (09:35)
[2020-02-17] MEDS: UMECLIDINIUM BROMIDE 62.5 MCG/DOSE IH SCH (09:35)
[2020-02-17] MEDS: CEFTRIAXONE 1 GM/D5W RTU 1 GM/50 ML RTUPB IV SCH (09:35)
[2020-02-17] MEDS: ENOXAPARIN SODIUM INJ 40 MG/0.4 ML DISP.SYRIN SUBCUT SCH (09:35)
[2020-02-17] MEDS ORDERED: FAMOTIDINE 20 MG TABLET PO SCH (10:00)
--- NOTE | 2020-02-17 11:22 | Left Against Medical Advice ---
Against Medical Advice Admission Date/Time: 02/15/20 10:10 Primary Care Provider: WILBERTO KNOX MD Date of Patient Emigration: 02/17/20 - Diagnosis: (1) Acute severe exacerbation of asthma Is this a current diagnosis for this admission?: Yes (2) Acute respiratory failure with hypoxia Is this a current diagnosis for this admission?: Yes - Summary: Summary: Please see Admission and Progress Notes as well. MARILIN HARRINGTON is a 40 M, who LEFT AGAINST MEDICAL ADVICE. The Patient was admitted on 02/15/20 10:10. [id number]-[id number]-old male with history of bronchial asthma admitted with severe shortness of breath requiring BiPAP in the emergency room. COVID-19 is negative. Started on IV Solu-Medrol, DuoNeb ligations and antibiotic therapy. No acute events in the hospital. Patient looks drowsy this morning. There is a question of patient taking his own medications at that time. Patient got upset after questioning decided to sign AMA left the hospital. I did convince him to stay in the hospital for further management he understood and verbalized the response of leaving the hospital and the risks involved still signed AMA papers and left the hospital.
== END 2020-02-17 11:05 | disposition left against medical advice (07) | DRG 202 ==
LOC: ER 06:07 → EH 10:10 → 3N 12:50
PROVIDERS: ADMIT Internal Medicine; ATTEND Internal Medicine
PROC: 5A09457 Assistance with Respiratory Ventilation, 24-96 Consecutive Hours, Continuous Positive Airway Pressure (ICD-10-PCS; principal; 2020-02-15)
DX: J45.51 Severe persistent asthma with (acute) exacerbation (principal); J96.01 Acute respiratory failure with hypoxia; J96.02 Acute respiratory failure with hypercapnia; F31.9 Bipolar disorder, unspecified; B95.62 Methicillin resistant Staphylococcus aureus infection as the cause of diseases classified elsewhere; F14.10 Cocaine abuse, uncomplicated; F12.10 Cannabis abuse, uncomplicated; Z79.51 Long term (current) use of inhaled steroids; Z79.52 Long term (current) use of systemic steroids; Z88.6 Allergy status to analgesic agent; Z03.818 Encounter for observation for suspected exposure to other biological agents ruled out
CPT/HCPCS: 36415; 71045; 80053; 80307; 81001; 82550; 82803; 83036; 83690; 83735; 83880; 84443; 84484; 85025; 85610; 87040; 87070; 87077; 87205; 87635; 93005; 93010; 94640; 94660; 96361; 96365; 99285; C9803; J0696; J1650; J2060; J2405; J2930; J3475; J3490; J7030; J7613; S0028

== ENCOUNTER 2020-02-24 08:00 | Emergency (ER) | payer MEDICARE, MEDICAID ==
[2020-02-24 08:05] VITALS: BP 104/65
== END 2020-02-24 08:35 | disposition left against medical advice (07) ==
LOC: ER 08:00
DX: Z53.21 Procedure and treatment not carried out due to patient leaving prior to being seen by health care provider (principal)